=== PATIENT | female | born 1950 | race Caucasian/White ===

== ENCOUNTER 2018-06-20 00:18 | Inpatient (IN) | payer MEDICARE, OTHER, SELFPAY ==
[2018-06-19 23:10] VITALS: BP 163/103; PULSE 107; RESP 16; TEMP 36.5; O2SAT 93
[2018-06-19 23:24] VITALS: PULSE 108
[2018-06-19 23:38] VITALS: BMI 36.8
[2018-06-19 23:42] VITALS: BMI 36.9
--- NOTE | 2018-06-19 23:46 | HP.PCM_ITS ---
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 Patient has dyspnea at rest and increased dyspnea with mild activity like walking around her car. She has had dyspnea since February 2018 but for the last 3-4 days her dyspnea has been unbearable. Patient denies chills, or fever. She has nausea but she states that her nausea is chronic. . She has had an extensive evaluation at outside hospitals. Stress test done with Dr. Castrejon, cardiology was unremarkable. An echocardiogram at outside hospital showed a compression of the free wall of the right atrium. A follow-up CT of chest showed small pleural effusions. On the day of admission CT scan was done at an outside hospital which was unchanged. EKG done at outside hospital showed T-wave inversion in leads V1 to V5 that was no present on EKG done previously. In regard to her ovarian cancer she was diagnosed with stage III ovarian cancer in 2015. At that time because the ovarian cancer has spread to multiple organs she had a hysterectomy; 10% of the colon was taken out; she had an appendectomy ; and many large size 2 tumors were taken from her abdomen. In addition, initially she had 18 sessions of chemotherapy. She reported her ovarian cancer was temporarily in remission for 3 months. Later on CAT scan showed that she had 5 enlarged lymph nodes in her abdomen that was attributed to the ovarian cancer. She had 12 more chemotherapy. Her ast chemotherapy was 3 weeks ago. Repeat CAT scan showed disappearance of 4 of these lymph nodes except an enlarged lymph node that was across her ureter and it was causing hydronephrosis. Because of hydronephrosis stated above, a urostomy tube was placed. The urostomy tube is changed every 8 weeks last time that it was changed was a week before this admission. Patient reports that her dyspnea was attributed to her chemotherapy. However she does not understand why her last chemotherapy was 3 weeks ago but she continues to have dyspnea. She acknowledged that she could have dyspnea attributed to chemotherapy even after chemotherapy has ended; but she thinks that if anything at all her dyspnea should be improving. Past Medical History Past Medical History (Chronic Problems): Chronic Problems Primary cancer of ovary with widespread metastatic disease (Chronic) Home Medications: Ambulatory Orders Medication Instructions Recorded Glipizide [Glucotrol Xl] 10 mg PO BID 06/19/18 Isosorbide Mononitrate [Isosorbide 60 mg PO DAILY 06/19/18 Mononitrate ER] Losartan Potassium 25 mg PO DAILY 06/19/18 Magnesium Oxide [Mag-Ox 400] 400 mg PO BID 06/19/18 Metformin(XR) [Glucophage Xr] 1,000 mg PO BID 06/19/18 Ondansetron [Zofran Odt] 4 mg PO Q8H PRN PRN 06/19/18 Simvastatin 20 mg PO QHS 06/19/18 Surgical History: - - Lipoma removed from her neck. Lives: Spouse/ Significant Other Tobacco Use: Non-smoker Alcohol: None Review of Systems Constitutional: Denies: Chills, Fever, Weight Change HEENT: Denies: Head Aches, Sinus Congestion, Sinus Drainage Cardiovascular: Denies: Chest Pain, Palpitations Respiratory: Reports: Shortness of Breath Gastrointestinal: Reports: Nausea. Denies: Abdominal Pain Genitourinary: Denies: Dysuria Musculoskeletal: Denies: Joint Pain, Joint Tenderness Skin: Denies: Rash, Wounds Neurological: Denies: Numbness, Tingling, Focal weakness Psychiatric: Denies: Anxiety, Depression, Homicidal Ideations, Suicidal Ideations Hematologic/ Lymphatic: Denies: Petechiae, Purpura VTE Information - Inpt Only VTE Present on Admission: No VTE Mechan Device Prophylaxis: None VTE Pharm Prophylaxis ordered?: Yes Patient Problems: Active and Suspected Problems Dyspnea (Acute) - Physical Exam General: Alert, Oriented x3, Cooperative HEENT: Atraumatic, PERRLA, EOMI, Normocephalic Neck: Supple, No JVD, Negative Carotid Bruits Lungs: Clear to auscultation, Diminished Cardiovascular: No murmurs, Tachycardic Abdomen: Bowel Sounds Present, Soft, Non Tender, - - Nephrostomy tube from right side flank.; Dressing dry and intact. 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 Of note patient is not hypoxic. ABG ordered. EKG ordered. Cardiology consulted to determine whether patient will be a candidate of heart cath. High-resolution CT to further investigate the lungs has been ordered. Investigating diffuse parenchymal lung disease. Respiratory pathogen panel to investigate acute dyspnea Duoneb scheduled. Albuterol prn. Consider a trial of steroid taper and pulmonary consult if further heart evaluation is unremarkable. Hypertension Blood pressure not within goal at the time of admission Losartan and Imdur continued Hydralazine as needed. Diabetes mellitus On home metformin and glipizide. Blood glucose within goal at the time of admission. Since it is too early in an admission would hold metformin for now Correction scale insulin ordered. On glipizide held for risk of hypoglycemia in the setting of stating insulin. Metastatic ovarian cancer The patient to follow up outpatient. DVT prophylaxis Subcutaneous Lovenox. Code Visit Inpatient E&M: 92861 Init Hosp L3
[2018-06-20] VITALS (15 sets, daily range): BP systolic 140–167; BP diastolic 85–90; PULSE 89–108; RESP 16–20; TEMP 36.5–36.7; O2SAT 95–98
[2018-06-20 00:30] LABS: Bedside Glucose 135 mg/dL (70-110)
--- NOTE | 2018-06-20 00:38 | EKG12_ITS ---
Test Reason : CP ADMIT Blood Pressure : / mmHG Vent. Rate : 106 BPM Atrial Rate : 106 BPM P-R Int : 162 ms QRS Dur : 096 ms QT Int : 380 ms P-R-T Axes : 037 029 -20 degrees QTc Int : 504 ms Sinus tachycardia Nonspecific ST and T wave abnormality Abnormal ECG No previous ECGs available Confirmed by ALLIE SHAW, ROSLYN ([id number]), photograph editor NESSA MCKEON ([id number]) on 06/24/2018 3:31:45 PM Referred By: DR SAMAYOA Confirmed By:ROSLYN KELLEY MD
--- NOTE | 2018-06-20 00:38 | CT_ITS ---
STUDY: CT CHEST WITHOUT CONTRAST REASON FOR EXAM: Female, 68 years old. Dyspnea RADIATION DOSAGE (If Supplied By Facility): CTDIvol = ( 20.08 ) mGy, DLP = ( 714.87 ) mGycm TECHNIQUE: Transaxial 5 and 1.25 mm imaging was performed without the administration of intravenous contrast material. Multiplanar coronal and sagittal images were reformatted. This examination is limited for the evaluation of gastrointestinal, solid organs and vascular structures due to the lack of intravenous and oral contrast. Submitted adjunct communications faculty member film demonstrated the heart and aorta on patient's right side. There is also a percutaneous pigtail catheter over the upper abdomen which is not included on the axial images.. Individualized dose optimization techniques were used for this CT. COMPARISON: None. FINDINGS: Right anterior chest wall port via subclavian approach with catheter tip in the superior vena cava. Mild elevation of the presumed right hemidiaphragm. The lungs are normal. Minimal left, small right pleural effusion without loculation. Small areas of patchy opacification along the peripheral right middle lobe, lingula, minor atelectatic changes in the left lower lobe and lingula. Mild airspace disease in the right lower lobe. There is cardiac enlargement. Mild pericardial fluid. Valvular calcification of the aorta and possible left coronary artery calcification Multiple small mediastinal lymph nodes, indistinct mediastinal nodes with adjacent mediastinal fat stranding and enlarged right paratracheal and precarinal lymph nodes. Largest lymph node measures 1.1 x 1.8 cm. Normal hilar regions. Normal unenhanced pulmonary arteries. There is atherosclerotic calcification of the aortic arch. There are multi-level degenerative changes of the thoracic spine. There is demineralization of osseous structures. Multiple splenic granulomata. Atherosclerosis of the upper abdominal aorta. Streak artifact in the right upper renal collecting system with possible calculi. Air within the collecting system is difficult to separate. Incompletely imaged liver appears enlarged. CT/Chest without Contrast IMPRESSION: Small right, minimal left pleural effusion without loculation, possible pneumonia in the right base with peripheral interstitial opacities possible small infiltrate in the middle lobe and lingula. There is cardiac enlargement and pericardial fluid.. Borderline to minimally enlarged mediastinal lymph nodes. The adjunct communications faculty member and reconstructed coronal view demonstrate the patient's heart on the right side which is not visualized on the axial views, correlation is recommended. Percutaneous operative abdominal drain noted on the adjunct communications faculty member view not seen on the submitted images, findings in the right kidney could be due to air or renal calculi, correlation advised. Remote granulomatous exposure. Electronically Signed: Tiffani Meza MD at 6:56 EDT , Service support ,
[2018-06-20] MEDS: cloNIDine HCl 0.1 MG Tablet PO (02:47)
[2018-06-20 06:43] LABS: International Normalized Ratio 1.1; Prothrombin Time (Protime)PT. 14.1 SECONDS (11.7-14.9)
[2018-06-20 06:51] LABS: Hematocrit 37.9 % (37-47); Hemoglobin 11.4 g/dl (12.0-15.0); Mean Corp Hgb Conc 30.1 g/gl (32-36); Mean Platelet Vol. 10.7 fl (6.2-12.0); Platelet Count 158 K/mm3 (150-450); RBC Distribution Width CV 18.8 % (11.6-14.6); RBC Distribution Width SD 68.9 fl (35.1-43.9); Red Blood Count 3.68 M/mm3 (4.2-5.4); White Blood Count 8.4 K/mm3 (4.4-11.0)
[2018-06-20 06:52] LABS: Scan Indicated on CBC? Y/N YES- FLAGS NOTED
[2018-06-20 06:55] LABS: Allen Test POS; Base Excess -3 mmol/L (-2 to +2); Bicarbonate 21.1 mmol/L (22-26); Blood Gas Specimen Type ART; O2 Delivery Device Room Air; PO2 73 mmHG (75-100); SITE L Radial; SO2 95 % (95-99); Time Given 640; Total Carbon Dioxide 22 mmol/L; pCO2 32.2 mmHg (35-45); pH 7.42 (7.35-7.45)
[2018-06-20 06:58] LABS: Anion Gap 12 (5-15); BUN 24 mg/dL (7-18); BUN/Creat Ratio 25.3 RATIO (10-20); Calcium,Total 8.6 mg/dL (8.5-10.1); Chloride 105 mmol/L (98-107); Creatinine, Serum 0.95 mg/dL (0.55-1.02); EST Glomerular Filtration Rate 62 mL/min (>60); Est Glom Filt Rate - Afr Amer 75 mL/min (>60); Estimated Creatinine Clearance 42.17 ml/min; Glucose 114 mg/dL (74-106); Potassium 4.3 mmol/L (3.5-5.1); Sodium Level 140 mmol/L (136-145)
[2018-06-20 07:05] LABS: Bedside Glucose 114 mg/dL (70-110)
[2018-06-20] MEDS: Ipratropium/Albuterol Sulfate 3 ML AMPUL.NEB INHALATION ×4 (07:07→18:49)
[2018-06-20 07:17] LABS: Differential Comment SCAN
[2018-06-20] MEDS: Magnesium Oxide 400 MG Tablet PO ×2 (07:46→21:10)
[2018-06-20] MEDS: Losartan Potassium 25 MG Tablet PO (07:47)
[2018-06-20] MEDS: Isosorbide Mononitrate 60 MG Tablet PO (07:47)
--- NOTE | 2018-06-20 08:03 | ECHOCS_ITS ---
Reason For Study: SOB Procedure This was a 2D Doppler, Color Flow transthoracic echocardiogram. Myocardial strain analysis was performed in this exam to aid in the assessment of cardiac function. Exam performed portable in patient room. Left Ventricle Normal LV size. Mild concentric left ventricular hypertrophy. The estimated ejection fraction is 15 %. Stage 2 diastolic dysfunction. The global longitudinal strain is severely abnormal. The 3D full volume ejection fraction is 27 %. The global longitudinal strain = -7% (abnormal). There is severe global hypokinesis of the left ventricle. Right Ventricle Normal RV size. Normal systolic function. Atria The left atrium is mildly enlarged. Normal right atrium. Mitral Valve Normal mitral valve. Mild (1+) eccentric mitral valve insufficiency. Tricuspid Valve Normal tricuspid valve. Mild (1+) tricuspid valve insufficiency. Pulmonary artery systolic pressure is 38 mmHg. Aortic Valve Trisinus/trileaflet aortic valve. Pulmonic Valve Normal pulmonic valve. Mild (1+) pulmonic valve insufficiency. Great Vessels Normal aortic root. Moderate pulmonary artery dilation. The inferior vena cava is dilated. Pericardium/Pleural Trivial pericardial effusion. MMode/2D Measurements & Calculations LVIDd: 5.3 cm IVSd: 1.2 cm Ao root diam: 3.3 cm LVIDs: 4.6 cm LVPWd: 1.2 cm LA dimension: 3.6 cm RVDd: 3.5 cm FS: 14.1 % LAV(MOD-bp): 62.0 ml LA A4 area: 21.3 cm2 RA A4 area: 14.3 cm2 LAV(MOD-bp) Indexed: 33.2 ml/m2 LAV(MOD-sp2): 56.0 ml LAV(MOD-sp4): 59.3 ml Doppler Measurements & Calculations MV E max ad: 94.1 cm/sec Lat Peak E' Ad: 7.0 cm/sec Med Peak E' Ad: 2.9 cm/sec MV A max ad: 94.6 cm/sec E/E' lat: 13.4 E/E' med: 32.4 MV E/A: 1.00 Ao V2 max: 149.3 cm/sec LV V1 max: 88.0 cm/sec PA V2 max: 67.0 cm/sec Ao max P.9 mmHg LV V1 max P.1 mmHg TR max ad: 294.0 cm/sec TR max P.6 mmHg Interpretation Summary Normal LV size. Mild concentric left ventricular hypertrophy. The estimated ejection fraction is 15 %. Stage 2 diastolic dysfunction. There is severe global hypokinesis of the left ventricle. The global longitudinal strain = -7% (abnormal). Mild (1+) tricuspid valve insufficiency. Trivial pericardial effusion. Ordering Physician: David Franco Performed By: Yue Bedolla RDCS
[2018-06-20] MEDS: Enoxaparin 40 MG/0.4 ML Syringe SC (11:10)
[2018-06-20 11:25] LABS: Bedside Glucose 138 mg/dL (70-110)
--- NOTE | 2018-06-20 12:37 | PCM.CONS.C ---
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 Patient has dyspnea at rest and increased dyspnea with mild activity like walking around her car. She has had dyspnea since February 2018 but for the last 3-4 days her dyspnea has been unbearable.Patient denies chills, or fever. She has nausea but she states that her nausea is chronic. . She has had an extensive evaluation at outside hospitals. Stress test done with Dr. Castrejon, cardiology was unremarkable. A previous echocardiogram which was performed in December of this year apparently demonstrated an ejection fraction of 55% with a small pericardial effusion with no evidence of tamponade physiology. In regard to her ovarian cancer she was diagnosed with stage III ovarian cancer in 2015. At that time because the ovarian cancer has spread to multiple organs she had a hysterectomy; 10% of the colon was taken out; she had an appendectomy; and many large size 2 tumors were taken from her abdomen. In addition, initially she had 18 sessions of chemotherapy. She reported her ovarian cancer was temporarily in remission for 3 months. Later on CAT scan showed that she had 5 enlarged lymph nodes in her abdomen that was attributed to the ovarian cancer. She had 12 more chemotherapy. Her last chemotherapy was 3 weeks ago. Repeat CAT scan showed disappearance of 4 of these lymph nodes except an enlarged lymph node that was across her ureter and it was causing hydronephrosis. Because of hydronephrosis stated above, a urostomy tube was placed. The urostomy tube is changed every 8 weeks last time that it was changed was a week before this admission. Patient reports that her dyspnea was attributed to her chemotherapy. However she does not understand why her last chemotherapy was 3 weeks ago but she continues to have dyspnea. She acknowledged that she could have dyspnea attributed to chemotherapy even after chemotherapy has ended; but she thinks that if anything at all her dyspnea should be improving. He denies any chest pain. She presented to the hospital because of her worsening dyspnea. Past Medical History Allergies/Adverse Reactions: Allergies lisinopril Allergy (Verified 06/20/18 00:17) Other Home Medications: Ambulatory Orders Medication Instructions Recorded Glipizide [Glucotrol Xl] 10 mg PO BID 06/19/18 Isosorbide Mononitrate [Isosorbide 60 mg PO DAILY 06/19/18 Mononitrate ER] Losartan Potassium 25 mg PO DAILY 06/19/18 Magnesium Oxide [Mag-Ox 400] 400 mg PO BID 06/19/18 Metformin(XR) [Glucophage Xr] 1,000 mg PO BID 06/19/18 Ondansetron [Zofran Odt] 4 mg PO Q8H PRN PRN 06/19/18 Simvastatin 20 mg PO QHS 06/19/18 Past Medical History (Chronic Problems): Chronic Problems Primary cancer of ovary with widespread metastatic disease (Chronic) Surgical History: - - Lipoma removed from her neck. Lives: Spouse/ Significant Other Smoking Status: Never smoker Tobacco Use: Non-smoker Alcohol: None Drugs: None Review of Systems - Review of Systems General: Denies: Fever, Night Sweats, Fatigue Cardiovascular: Reports: Shortness of Breath, Shortness of Breath at Rest, Shortness of Breath with Exertion. Denies: Chest Discomfort, Orthopnea, PND, Peripheral Edema, Palpitations, Lightheadedness, Dizziness, Near Syncope, Syncope Respiratory: Denies: Cough, Sputum Production, Hemoptysis Gastrointestinal: Denies: Hematemesis, Hematochezia, Melena Genitourinary: Denies: Dysuria, Hematuria Skin: Denies: Rash Subjectve: Pleasant lady in no apparent distress Objective: Vital Signs Temp Pulse Resp BP Pulse Ox 98.1 F 96 20 H 145/88 H 97 06/20/18 07:44 06/20/18 11:30 06/20/18 10:36 06/20/18 07:44 06/20/18 07:44 Oxygen Delivery Method Room Air Weight: 195 lb 1.745 oz Body Mass Index (BMI) 36.8 Intake and Output for Last 24 Hours 06/18/18 06/19/18 06/20/18 23:59 23:59 23:59 Intake Total 360 / 360 Output Total 70 / 70 Balance 290 / 290 General: Awake, Alert, Oriented x 3 HEENT: PERRL, EOMI, Sclera Non Icteric Neck: Supple, Good ROM, No Lymph Node Enlargement Lungs: Clear to auscultation Cardiovascular: Regular Rhythm, Normal S1, Normal S2, No Murmurs, No Rubs, No Gallops, Positive S3 Vascular: No Carotid Bruits, Normal Femoral Pulses, Normal Radial Pulses, Normal Dorsalis Pedal Pulse, Normal Posterior Tibial Pulses Abdomen: Bowel Sounds Present, Soft, Non Tender, No HSM, No Organomegaly Extremities: No Cyanosis, No Clubbing, No edema Neurological: No Focal Motor or Sensory Deficit 06/20/18 05:40: Sodium 140, Potassium 4.3, Chloride 105, Carbon Dioxide 23.0, Anion Gap 12, BUN 24 H, Creatinine 0.95, Est GFR (MDRD) Af Amer 75, Est GFR (MDRD) Non-Af 62, BUN/Creatinine Ratio 25.3 H, Glucose 114 H, Calcium 8.6 06/20/18 05:40: PT 14.1, INR 1.1 06/20/18 05:40: WBC 8.4, RBC 3.68 L, Hgb 11.4 L, Hct 37.9, MCV 103.0 H, MCH 31.0, MCHC 30.1 L, RDW 18.8 H, RDW Differential 68.9 H, Plt Count 158, MPV 10.7 06/20/18 06:52: pH 7.42, Bicarbonate Actual 21.1 L, POC Total CO2 22, Base Excess -3 L, O2 Saturation 95, ABG pCO2 32.2 L, ABG pO2 73 L, Moose Test POS Rhythm: EKG: Sinus tachycardia with a rate of [address]-T wave changes noted ECHO: Stress Test: Cardiac Cath: PCI: CT Surgery: Holter monitor: EPS: PPM: CXR: Chest CT Scan: Assessment/Plan 1. Shortness of breath.-Congestive heart failure acute systolic She appears to have marked shortness of breath which it appears is secondary to acute congestive heart failure. An echocardiogram that was performed this morning demonstrates an ejection fraction of 15-20%. The global longitudinal score is noted to be markedly reduced. The above is likely secondary to the chemotherapeutic regimen that she received. Recommendation at this time will be to continue the losartan Start beta-nestor with Coreg 3.125 mg twice a day Will probably need to exclude coronary artery disease due to her age Will diurese with Lasix due to her elevated natruretic peptide level previously. Depending on the findings further recommendations will then be made. I will talk to her about possibly undergoing a left heart catheterization. 2. Hypertension She does have a history of hypertension and was on losartan. I would recommend continuing the above and titrating the beta-nestor to improve her blood pressure better. It is unlikely that her condition is secondary to hypertensive cardiomyopathy though. Thank you for allowing me to participate in the care of your patient. Please don't hesitate to call if any issues arise
--- NOTE | 2018-06-20 12:41 | CON.PCM_ITS ---
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 Patient has dyspnea at rest and increased dyspnea with mild activity like walking around her car. She has had dyspnea since February 2018 but for the last 3-4 days her dyspnea has been unbearable.Patient denies chills, or fever. She has nausea but she states that her nausea is chronic. . She has had an extensive evaluation at outside hospitals. Stress test done with Dr. Castrejon, cardiology was unremarkable. A previous echocardiogram which was performed in December of this year apparently demonstrated an ejection fraction of 55% with a small pericardial effusion with no evidence of tamponade physiology. In regard to her ovarian cancer she was diagnosed with stage III ovarian cancer in 2015. At that time because the ovarian cancer has spread to multiple organs she had a hysterectomy; 10% of the colon was taken out; she had an appendectomy ; and many large size 2 tumors were taken from her abdomen. In addition, initially she had 18 sessions of chemotherapy. She reported her ovarian cancer was temporarily in remission for 3 months. Later on CAT scan showed that she had 5 enlarged lymph nodes in her abdomen that was attributed to the ovarian cancer. She had 12 more chemotherapy. Her last chemotherapy was 3 weeks ago. Repeat CAT scan showed disappearance of 4 of these lymph nodes except an enlarged lymph node that was across her ureter and it was causing hydronephrosis. Because of hydronephrosis stated above, a urostomy tube was placed. The urostomy tube is changed every 8 weeks last time that it was changed was a week before this admission. Patient reports that her dyspnea was attributed to her chemotherapy. However she does not understand why her last chemotherapy was 3 weeks ago but she continues to have dyspnea. She acknowledged that she could have dyspnea attributed to chemotherapy even after chemotherapy has ended; but she thinks that if anything at all her dyspnea should be improving. He denies any chest pain. She presented to the hospital because of her worsening dyspnea. Past Medical History Allergies/Adverse Reactions: Allergies lisinopril Allergy (Verified 06/20/18 00:17) Other Home Medications: Ambulatory Orders Medication Instructions Recorded Glipizide [Glucotrol Xl] 10 mg PO BID 06/19/18 Isosorbide Mononitrate [Isosorbide 60 mg PO DAILY 06/19/18 Mononitrate ER] Losartan Potassium 25 mg PO DAILY 06/19/18 Magnesium Oxide [Mag-Ox 400] 400 mg PO BID 06/19/18 Metformin(XR) [Glucophage Xr] 1,000 mg PO BID 06/19/18 Ondansetron [Zofran Odt] 4 mg PO Q8H PRN PRN 06/19/18 Simvastatin 20 mg PO QHS 06/19/18 Past Medical History (Chronic Problems): Chronic Problems Primary cancer of ovary with widespread metastatic disease (Chronic) Surgical History: - - Lipoma removed from her neck. Lives: Spouse/ Significant Other Smoking Status: Never smoker Tobacco Use: Non-smoker Alcohol: None Drugs: None Review of Systems - Review of Systems General: Denies: Fever, Night Sweats, Fatigue Cardiovascular: Reports: Shortness of Breath, Shortness of Breath at Rest, Shortness of Breath with Exertion. Denies: Chest Discomfort, Orthopnea, PND, Peripheral Edema, Palpitations, Lightheadedness, Dizziness, Near Syncope, Syncope Respiratory: Denies: Cough, Sputum Production, Hemoptysis Gastrointestinal: Denies: Hematemesis, Hematochezia, Melena Genitourinary: Denies: Dysuria, Hematuria Skin: Denies: Rash Subjectve: Pleasant lady in no apparent distress Objective: Vital Signs Temp Pulse Resp BP Pulse Ox 98.1 F 96 20 H 145/88 H 97 06/20/18 07:44 06/20/18 11:30 06/20/18 10:36 06/20/18 07:44 06/20/18 07:44 Oxygen Delivery Method Room Air Weight: 195 lb 1.745 oz Body Mass Index (BMI) 36.8 Intake and Output for Last 24 Hours 06/18/18 06/19/18 06/20/18 23:59 23:59 23:59 Intake Total 360 / 360 Output Total 70 / 70 Balance 290 / 290 General: Awake, Alert, Oriented x 3 HEENT: PERRL, EOMI, Sclera Non Icteric Neck: Supple, Good ROM, No Lymph Node Enlargement Lungs: Clear to auscultation Cardiovascular: Regular Rhythm, Normal S1, Normal S2, No Murmurs, No Rubs, No Gallops, Positive S3 Vascular: No Carotid Bruits, Normal Femoral Pulses, Normal Radial Pulses, Normal Dorsalis Pedal Pulse, Normal Posterior Tibial Pulses Abdomen: Bowel Sounds Present, Soft, Non Tender, No HSM, No Organomegaly Extremities: No Cyanosis, No Clubbing, No edema Neurological: No Focal Motor or Sensory Deficit 06/20/18 05:40: Sodium 140, Potassium 4.3, Chloride 105, Carbon Dioxide 23.0, Anion Gap 12, BUN 24 H, Creatinine 0.95, Est GFR (MDRD) Af Amer 75, Est GFR ( MDRD) Non-Af 62, BUN/Creatinine Ratio 25.3 H, Glucose 114 H, Calcium 8.6 06/20/18 05:40: PT 14.1, INR 1.1 06/20/18 05:40: WBC 8.4, RBC 3.68 L, Hgb 11.4 L, Hct 37.9, MCV 103.0 H, MCH 31.0 , MCHC 30.1 L, RDW 18.8 H, RDW Differential 68.9 H, Plt Count 158, MPV 10.7 06/20/18 06:52: pH 7.42, Bicarbonate Actual 21.1 L, POC Total CO2 22, Base Excess -3 L, O2 Saturation 95, ABG pCO2 32.2 L, ABG pO2 73 L, Moose Test POS Rhythm: EKG: Sinus tachycardia with a rate of [address]-T wave changes noted ECHO: Stress Test: Cardiac Cath: PCI: CT Surgery: Holter monitor: EPS: PPM: CXR: Chest CT Scan: Assessment/Plan 1. Shortness of breath.-Congestive heart failure acute systolic * She appears to have marked shortness of breath which it appears is secondary to acute congestive heart failure. An echocardiogram that was performed this morning demonstrates an ejection fraction of 15-20%. The global longitudinal score is noted to be markedly reduced. The above is likely secondary to the chemotherapeutic regimen that she received. * Recommendation at this time will be to continue the losartan * Start beta-nestor with Coreg 3.125 mg twice a day * Will probably need to exclude coronary artery disease due to her age * Will diurese with Lasix due to her elevated natruretic peptide level previously. * Depending on the findings further recommendations will then be made. I will talk to her about possibly undergoing a left heart catheterization. 2. Hypertension * She does have a history of hypertension and was on losartan. I would recommend continuing the above and titrating the beta-nestor to improve her blood pressure better. It is unlikely that her condition is secondary to hypertensive cardiomyopathy though. * * Thank you for allowing me to participate in the care of your patient. Please don't hesitate to call if any issues arise
--- NOTE | 2018-06-20 12:55 | PN_ITS ---
<Aparna Go - Last Filed: 06/20/18 12:56> Patient Problems: Active and Suspected Problems Dyspnea (Acute) Subjective: Patient seen and examined. Complains of ongoing dyspnea. States she is unable to walk greater than 10 feet without significant dyspnea and having to rest. Denies chest pain. Denies palpitations, dizziness. Denies lower extremity edema. - Physical Exam General: Alert, Oriented x3, Cooperative, No apparent distress HEENT: Atraumatic, PERRLA, EOMI, Normocephalic Neck: Supple, No JVD, Negative Carotid Bruits Lungs: Clear to auscultation, Diminished Cardiovascular: Regular rate, Regular Rhythm, Normal S1, Normal S2, No murmurs Abdomen: Bowel Sounds Present, Soft, Non Tender, Non-Distended, Obese, - - Nephrostomy tube intact. Extremities: No clubbing, No cyanosis, No edema, Capillary Refill Less than 3 Seconds Skin: No rashes, No breakdown Musculoskeletal: No Tenderness to Palpation of Joints or Extremities Neurological: Cranial nerves II-XII grossly intact, Neuro grossly intact Psych/Mental Status: Normal Affect, Appropriate Vital Signs Temp Pulse Resp BP Pulse Ox 98.1 F 96 20 H 145/88 H 97 06/20/18 07:44 06/20/18 11:30 06/20/18 10:36 06/20/18 07:44 06/20/18 07:44 Oxygen Delivery Method Room Air Weight: 195 lb 1.745 oz Body Mass Index (BMI) 36.8 Intake and Output for Last 24 Hours 06/18/18 06/19/18 06/20/18 23:59 23:59 23:59 Intake Total 360 / 360 Output Total 70 / 70 Balance 290 / 290 Microbiology Past 72 Hours 06/20/18 06:35 Respiratory Panel (PCR) - Final Mucosa - Nasopharyngeal Laboratory Tests Past 24 Hrs 06/20/18 06/20/18 06/20/18 05:40 05:40 05:40 WBC 8.4 RBC 3.68 L Hgb 11.4 L Hct 37.9 MCV 103.0 H MCH 31.0 MCHC 30.1 L RDW 18.8 H RDW Differential 68.9 H Plt Count 158 MPV 10.7 Differential Comment SCAN PT 14.1 INR 1.1 Specimen Type Sample Site pH Bicarbonate Actual POC Total CO2 Base Excess O2 Saturation ABG pCO2 ABG pO2 Moose Test O2 Delivery Device Blood Gas Notified Whom Blood Gas Notified Time Sodium 140 Potassium 4.3 Chloride 105 Carbon Dioxide 23.0 Anion Gap 12 BUN 24 H Creatinine 0.95 Estim Creat Clear Calc 42.17 Est GFR (MDRD) Af Amer 75 Est GFR (MDRD) Non-Af 62 BUN/Creatinine Ratio 25.3 H Glucose 114 H Calcium 8.6 06/20/18 06:52 WBC RBC Hgb Hct MCV MCH MCHC RDW RDW Differential Plt Count MPV Differential Comment PT INR Specimen Type ART Sample Site L Radial pH 7.42 Bicarbonate Actual 21.1 L POC Total CO2 22 Base Excess -3 L O2 Saturation 95 ABG pCO2 32.2 L ABG pO2 73 L Moose Test POS O2 Delivery Device Room Air Blood Gas Notified Whom [facility] Blood Gas Notified Time 640 Sodium Potassium Chloride Carbon Dioxide Anion Gap BUN Creatinine Estim Creat Clear Calc Est GFR (MDRD) Af Amer Est GFR (MDRD) Non-Af BUN/Creatinine Ratio Glucose Calcium POC Glucose 06/20/18 06/20/18 06/20/18 11:08 06:51 00:23 POC Glucose 138 H 114 H 135 H Medical Necessity - Tobacco Use Smoking Status: Never smoker Tobacco Use: Non-smoker Assessment/Plan All Active Problems Dyspnea (Acute) 1. Acute respiratory insufficiency secondary to acute systolic CHF-patient notes history of dyspnea following prior chemotherapy treatments. She states in the past, this is improved over time. However her most recent chemotherapy treatment was 3 weeks ago and she has had worsening dyspnea since that time. Chest CT showed small right pleural effusion, possible pneumonia in the right base. Small infiltrate in the middle lobe and lingula. Cardiac enlargement and pericardial fluid. Echocardiogram showed an EF of 15%, stage II diastolic dysfunction, severe global hypokinesis of the left ventricle, mild tricuspid valve insufficiency, trivial pericardial effusion. BNP elevated at outside facility. Cardiology following. Patient started on Lasix 40 mg twice daily. Started on carvedilol 3.125 mg twice daily. Continue losartan. Possible heart catheterization per cardiology. Patient has not been noted to be hypoxic. Will need to complete walking pulse ox prior to discharge. 2. Type 2 diabetes mellitus-hold home oral regimen. Accu-Cheks before meals at bedtime with sliding scale insulin. 3. Hypertension-stable, continue home losartan regimen. Started on carvedilol 3.125 mg twice daily. Home isosorbide regimen discontinued. Started on Lasix 40 mg twice daily. 4. Hyperlipidemia-continue statin. 5. Metastatic ovarian cancer-original diagnosis with stage III ovarian cancer in 2016. Status post hysterectomy. Recurrence to lymph nodes most recently. Recently completed final chemotherapy treatment 3 weeks ago. Patient with right nephrostomy tube secondary to enlarged lymph node across ureter, causing hydronephrosis. Follows with [facility] in [place]. DVT prophylaxis-Lovenox subcu. This patient was seen by RAMANDEEP Montes De Oca under the supervision of Dr. Franco. <David Franco - Last Filed: 06/20/18 16:11> Subjective: Patient has slowly progressive decline in exercise capacity, exertional dyspnea since December 2017. She had second chemo started in October 2017 after noticed recurrence of ovarian cancer. She denies chest pain, palpitation, fever or chills, tachypnea at rest. She has chronic on and off occasional cough. Bilateral lower extremity edema. - Physical Exam General: Alert, Oriented x3, Cooperative HEENT: Atraumatic, PERRLA, EOMI, Normocephalic Neck: Supple, No JVD, Negative Carotid Bruits Lungs: Clear to auscultation, Diminished Cardiovascular: Regular rate, No murmurs Abdomen: Bowel Sounds Present, Soft, Non Tender, Obese, - - Right Nephrostomy tube intact. Extremities: Capillary Refill Less than 3 Seconds, Edema Skin: No rashes, No breakdown Musculoskeletal: No Tenderness to Palpation of Joints or Extremities Neurological: Cranial nerves II-XII grossly intact Psych/Mental Status: Normal Affect, Appropriate Vital Signs Temp Pulse Resp BP Pulse Ox 97.7 F L 89 20 H 140/90 H 98 06/20/18 13:45 06/20/18 15:05 06/20/18 15:05 06/20/18 13:45 06/20/18 13:45 Oxygen Delivery Method Room Air Weight: 197 lb 12.8 oz Body Mass Index (BMI) 36.8 Intake and Output for Last 24 Hours 06/18/18 06/19/18 06/20/18 23:59 23:59 23:59 Intake Total 360 / 360 Output Total 70 / 70 Balance 290 / 290 Microbiology Past 72 Hours 06/20/18 06:35 Respiratory Panel (PCR) - Final Mucosa - Nasopharyngeal Laboratory Tests Past 24 Hrs 06/20/18 06/20/18 06/20/18 05:40 05:40 05:40 WBC 8.4 RBC 3.68 L Hgb 11.4 L Hct 37.9 MCV 103.0 H MCH 31.0 MCHC 30.1 L RDW 18.8 H RDW Differential 68.9 H Plt Count 158 MPV 10.7 Differential Comment SCAN PT 14.1 INR 1.1 Specimen Type Sample Site pH Bicarbonate Actual POC Total CO2 Base Excess O2 Saturation ABG pCO2 ABG pO2 Moose Test O2 Delivery Device Blood Gas Notified Whom Blood Gas Notified Time Sodium 140 Potassium 4.3 Chloride 105 Carbon Dioxide 23.0 Anion Gap 12 BUN 24 H Creatinine 0.95 Estim Creat Clear Calc 42.17 Est GFR (MDRD) Af Amer 75 Est GFR (MDRD) Non-Af 62 BUN/Creatinine Ratio 25.3 H Glucose 114 H Calcium 8.6 06/20/18 06:52 WBC RBC Hgb Hct MCV MCH MCHC RDW RDW Differential Plt Count MPV Differential Comment PT INR Specimen Type ART Sample Site L Radial pH 7.42 Bicarbonate Actual 21.1 L POC Total CO2 22 Base Excess -3 L O2 Saturation 95 ABG pCO2 32.2 L ABG pO2 73 L Moose Test POS O2 Delivery Device Room Air Blood Gas Notified Whom [facility] Blood Gas Notified Time 640 Sodium Potassium Chloride Carbon Dioxide Anion Gap BUN Creatinine Estim Creat Clear Calc Est GFR (MDRD) Af Amer Est GFR (MDRD) Non-Af BUN/Creatinine Ratio Glucose Calcium POC Glucose 06/20/18 06/20/18 06/20/18 11:08 06:51 00:23 POC Glucose 138 H 114 H 135 H Assessment/Plan This patient was seen in conjunction with LEARNING ANALYST, Aparna. I have independently interviewed and examined the patient and reviewed pertinent history, examination findings, laboratory and plan of management. I have reviewed the note and agree with the documented findings with the few additional points. In brief, patient is admitted for gradual progressive exertional dyspnea, decreased functional capacity leg edema consistent with heart failure. EKG shows sinus tachycardia at 106 bpm. 2D echo in December 2017 reviewed and reported EF 55% with no significant valvular pathology mild concentric LVH. It is mentioned about compression of free wall of right atrium with atrial septal aneurysm present. [id number] interatrial shunt by agitated saline injection. Minimal posterior mitral annular calcification. Trace circumferential pericardial effusion. She had ECG stress test which was negative exercise EKG is for ischemia with poor functional capacity. Normal blood pressure and heart rate response to exercise. No exercise-induced chest pain. she had symptoms of shortness of breath suggestive of CHF during her first chemo in October 2016 after that her symptoms of shortness of breath improved after chemo was completed. Symptoms started again after she had recurrence of ovarian cancer was started on chemo in October 2017. 2D echo showed done on 06/20/2018 showed EF 15% with stage II diastolic dysfunction with normal LV size. Severe global hypokinesis. Normal RV size systolic function LA mildly enlarged. Normal right atrium. Mild eccentric MR. Mild TR, RVSP 38 mmHg. Mild DE. Moderate pulmonary artery dilatation. IVC dilated. CT scan reviewed. Shows mild pericardial effusion. Small right pleural effusion and minimal left pleural effusion. There is infiltrate or opacity in right base and right middle lobe with no air bronchograms, suggestive of more atelectasis than underlying effusion. Clinically she does not have symptoms of bronchitis or pneumonia including tachypnea, fever, chills or hypoxia. I have discussed my assessment with Aparna HUBER and orders have been reviewed. Code Visit Inpatient E&M: 55710 Subs Hosp L3
[2018-06-20] MEDS: Furosemide 40 MG/4 ML Vial IV (13:37)
[2018-06-20] MEDS: 0.9% NaCl Peripheral Flush Adult/Peds IV (13:37)
--- NOTE | 2018-06-20 14:00 | CASEMGMT ---
SEE RN NIGHAT ASSESS LINK: D/C PLAN: HOME Intro role to RN NIGHAT. Pt resting in bed, awake/alert, willing to participate in assessment and all questions answered appropriately. Pt states lives w/her , is independent at home, wishes to return home and denies needs for DME or HHC. Pt states if would need O2 on discharge that she would prefer to get O2 from [facility] in [place]. Pt will need Home O2 testing done prior to discharge. Pt denies having any questions or needs. CM to follow for any discharge planning needs that may arise. Edmond BSN RN CM
[2018-06-20] MEDS: Furosemide 40 MG Tablet PO (16:07)
[2018-06-20 16:26] LABS: Bedside Glucose 135 mg/dL (70-110)
[2018-06-20] MEDS: Atorvastatin Calcium 10 MG Tablet PO (21:10)
[2018-06-20] MEDS: Carvedilol 3.125 MG TABLET PO (21:10)
[2018-06-20] MEDS: Insulin Lispro 100 UNIT/ML INSULN.PEN SQ (21:13)
[2018-06-20 22:01] LABS: Bedside Glucose 181 mg/dL (70-110)
[2018-06-21] VITALS (25 sets, daily range): BP systolic 117–139; BP diastolic 64–95; PULSE 64–101; RESP 16–21; TEMP 36.3–37.2; O2SAT 94–99
[2018-06-21 06:27] LABS: Anion Gap 12 (5-15); BUN 31 mg/dL (7-18); Calcium,Total 8.5 mg/dL (8.5-10.1); Chloride 103 mmol/L (98-107); Creatinine, Serum 1.29 mg/dL (0.55-1.02); EST Glomerular Filtration Rate 44 mL/min (>60); Est Glom Filt Rate - Afr Amer 53 mL/min (>60); Estimated Creatinine Clearance 31.06 ml/min; Glucose 140 mg/dL (74-106); Potassium 3.9 mmol/L (3.5-5.1); Sodium Level 141 mmol/L (136-145)
[2018-06-21] MEDS: Ipratropium/Albuterol Sulfate 3 ML AMPUL.NEB INHALATION ×4 (06:58→19:52)
[2018-06-21 07:16] LABS: Bedside Glucose 173 mg/dL (70-110)
[2018-06-21] MEDS: Carvedilol 3.125 MG TABLET PO (07:37)
[2018-06-21] MEDS: Insulin Lispro 100 UNIT/ML INSULN.PEN SQ ×2 (07:38→22:10)
[2018-06-21] MEDS: Furosemide 40 MG Tablet PO (07:39)
[2018-06-21] MEDS: Losartan Potassium 25 MG Tablet PO (07:39)
[2018-06-21] MEDS: Enoxaparin 40 MG/0.4 ML Syringe SC (07:39)
[2018-06-21] MEDS: Magnesium Oxide 400 MG Tablet PO ×2 (07:40→22:10)
--- NOTE | 2018-06-21 08:24 | PN.CARD_ITS ---
Subjectve: Patient seen and evaluated. She appears to be feeling much better this morning. Adequate urine output noted Objective: Vital Signs Temp Pulse Resp BP Pulse Ox 98.4 F 89 18 130/80 H 95 06/21/18 07:46 06/21/18 07:46 06/21/18 07:46 06/21/18 07:46 06/21/18 07:46 Oxygen Delivery Method Room Air Weight: 194 lb 14.218 oz Body Mass Index (BMI) 36.8 Intake and Output for Last 24 Hours 06/19/18 06/20/18 06/21/18 23:59 23:59 23:59 Intake Total 360 / 360 Output Total 1670 / 1670 1500 / 1500 Balance -1310 / -1310 -1500 / -1500 General: Awake, Alert, Oriented x 3 HEENT: PERRL, EOMI, Sclera Non Icteric Neck: Supple, Good ROM, No Lymph Node Enlargement Lungs: Clear to auscultation Cardiovascular: Regular Rhythm, Normal S1, Normal S2, No Murmurs, No Rubs, No Gallops Vascular: No Carotid Bruits, Normal Femoral Pulses, Normal Radial Pulses, Normal Dorsalis Pedal Pulse, Normal Posterior Tibial Pulses Abdomen: Bowel Sounds Present, Soft, Non Tender, No HSM, No Organomegaly Extremities: No Cyanosis, No Clubbing, No edema Neurological: No Focal Motor or Sensory Deficit 06/21/18 05:10: Sodium 141, Potassium 3.9, Chloride 103, Carbon Dioxide 26.0, Anion Gap 12, BUN 31 H, Creatinine 1.29 H, Est GFR (MDRD) Af Amer 53 L, Est GFR (MDRD) Non-Af 44 L, BUN/Creatinine Ratio 24.0 H, Glucose 140 H, Calcium 8.5 Rhythm: EKG: ECHO: Stress Test: Cardiac Cath: PCI: CT Surgery: Holter monitor: EPS: PPM: CXR: Chest CT Scan: Medical Necessity - Tobacco Use Smoking Status: Never smoker Tobacco Use: Non-smoker Assessment/Plan 1. Shortness of breath.-Congestive heart failure acute systolic * She appears to have marked shortness of breath which it appears is secondary to acute congestive heart failure. An echocardiogram that was performed this morning demonstrates an ejection fraction of 15-20%. The global longitudinal score is noted to be markedly reduced. The above is likely secondary to the chemotherapeutic regimen that she received. * Recommendation at this time will be to continue the losartan * Continue beta-nestor with Coreg at 6.25 mg twice a day * Will probably need to exclude coronary artery disease due to her age * Will diurese with Lasix due to her elevated natruretic peptide level previously. * Depending on the findings further recommendations will then be made. * Will recommend a left heart catheterization in a.m. to exclude obstructive coronary disease. The risk benefits and alternatives have been explained to her she understands and agrees to proceed.. 2. Hypertension * She does have a history of hypertension and was on losartan. I would recommend continuing the above and titrating the beta-nestor to improve her blood pressure better. It is unlikely that her condition is secondary to hypertensive cardiomyopathy though. * * Thank you for allowing me to participate in the care of your patient. Please don't hesitate to call if any issues arise
[2018-06-21] MEDS: Clopidogrel Bisulfate 300 MG Tablet PO (09:45)
[2018-06-21] MEDS: Carvedilol 6.25 MG Tablet PO ×2 (09:45→22:10)
--- NOTE | 2018-06-21 10:28 | PCM.PROGNOTE ---
<Aparna Go - Last Filed: 06/21/18 10:51> Patient Problems: Active and Suspected Problems Dyspnea (Acute) Subjective: Patient seen and examined. Patient reports significant improvement in shortness of breath. She also notes decreased generalized swelling. States she was able to lie on her side and back last night without breathing difficulty which she reports she has not been able to do a long time. - Physical Exam General: Alert, Oriented x3, Cooperative, No apparent distress HEENT: Atraumatic, PERRLA, EOMI, Normocephalic Neck: Supple, No JVD, Negative Carotid Bruits Lungs: Clear to auscultation, Diminished Cardiovascular: Regular rate, Regular Rhythm, Normal S1, Normal S2, No murmurs Abdomen: Bowel Sounds Present, Soft, Non Tender, Non-Distended, Obese, - - Nephrostomy tube intact. Extremities: No clubbing, No cyanosis, No edema, Capillary Refill Less than 3 Seconds Skin: No rashes, No breakdown Musculoskeletal: No Tenderness to Palpation of Joints or Extremities Neurological: Cranial nerves II-XII grossly intact, Neuro grossly intact Psych/Mental Status: Normal Affect, Appropriate Vital Signs Temp Pulse Resp BP Pulse Ox 98.4 F 89 18 130/80 H 95 06/21/18 07:46 06/21/18 07:46 06/21/18 07:46 06/21/18 07:46 06/21/18 09:01 Oxygen Delivery Method Room Air Weight: 194 lb 14.218 oz Body Mass Index (BMI) 36.8 Intake and Output for Last 24 Hours 06/19/18 06/20/18 06/21/18 23:59 23:59 23:59 Intake Total 360 / 360 Output Total 1670 / 1670 1500 / 1500 Balance -1310 / -1310 -1500 / -1500 Microbiology Past 72 Hours 06/20/18 16:40 Streptococcus pneumoniae Antigen (M - Final Urine, Clean Catch 06/20/18 16:40 Legionella Antigen - Final Urine, Clean Catch 06/20/18 06:35 Respiratory Panel (PCR) - Final Mucosa - Nasopharyngeal Laboratory Tests Past 24 Hrs 06/21/18 05:10 Sodium 141 Potassium 3.9 Chloride 103 Carbon Dioxide 26.0 Anion Gap 12 BUN 31 H Creatinine 1.29 H Estim Creat Clear Calc 31.06 Est GFR (MDRD) Af Amer 53 L Est GFR (MDRD) Non-Af 44 L BUN/Creatinine Ratio 24.0 H Glucose 140 H Calcium 8.5 POC Glucose 06/21/18 06/20/18 06/20/18 06:50 21:09 16:05 POC Glucose 173 H 181 H 135 H 06/20/18 11:08 POC Glucose 138 H Medical Necessity - Tobacco Use Smoking Status: Never smoker Tobacco Use: Non-smoker Assessment/Plan All Active Problems Dyspnea (Acute) 1. Acute respiratory insufficiency without hypoxia secondary to acute systolic CHF-patient notes history of dyspnea following prior chemotherapy treatments. She states in the past, this is improved over time. However her most recent chemotherapy treatment was 3 weeks ago and she has had worsening dyspnea since that time. Chest CT showed small right pleural effusion, possible pneumonia in the right base. Small infiltrate in the middle lobe and lingula. Cardiac enlargement and pericardial fluid. Echocardiogram showed an EF of 15%, stage II diastolic dysfunction, severe global hypokinesis of the left ventricle, mild tricuspid valve insufficiency, trivial pericardial effusion. BNP elevated at outside facility. Cardiology following. Patient started on Lasix 40 mg twice daily. Started on carvedilol 3.125 mg twice daily. Continue losartan. Plan is for heart cath tomorrow morning. Will need to complete walking pulse ox prior to discharge. -3.1 L fluid balance over past 24 hours. Patient has had significant improvement with shortness of breath since initiation of Lasix. States she is able to lie flat without difficulty. 2. Type 2 diabetes mellitus-hold home oral regimen. Accu-Cheks before meals at bedtime with sliding scale insulin. 3. Hypertension-stable, continue home losartan regimen. Started on carvedilol 3.125 mg twice daily. Home isosorbide regimen discontinued. Started on Lasix 40 mg twice daily. 4. Hyperlipidemia-continue statin. 5. Metastatic ovarian cancer-original diagnosis with stage III ovarian cancer in 2016. Status post hysterectomy. Recurrence to lymph nodes most recently. Recently completed final chemotherapy treatment 3 weeks ago. Patient with right nephrostomy tube secondary to enlarged lymph node across ureter, causing hydronephrosis. Follows with [facility] in [place]. DVT prophylaxis-Lovenox subcu. This patient was seen by RAMANDEEP Montes De Oca under the supervision of Dr. Franco. <David Franco - Last Filed: 06/21/18 16:20> Subjective: Patient had cardiac cath today. As mentioned yesterday, EF was found 15-20% with hypokinetic left ventricle. There was some regional wall motion abnormality. Her leg swelling has much improved. Shortness of breath has improved. - Physical Exam General: Alert, Oriented x3, Cooperative HEENT: Atraumatic, PERRLA, EOMI, Normocephalic Neck: Supple, No JVD, Negative Carotid Bruits Lungs: Clear to auscultation, Diminished, - - Bilateral pleural effusion Cardiovascular: Regular rate, No murmurs Abdomen: Bowel Sounds Present, Soft, Non Tender Extremities: No edema, Capillary Refill Less than 3 Seconds Skin: No rashes, No breakdown Musculoskeletal: No Tenderness to Palpation of Joints or Extremities Neurological: Cranial nerves II-XII grossly intact Psych/Mental Status: Normal Affect, Appropriate Vital Signs Temp Pulse Resp BP Pulse Ox 98.9 F 86 16 133/69 H 96 06/21/18 16:00 06/21/18 16:00 06/21/18 16:00 06/21/18 16:00 06/21/18 16:00 Oxygen Delivery Method Room Air Weight: 194 lb 14.218 oz Body Mass Index (BMI) 36.8 Intake and Output for Last 24 Hours 06/19/18 06/20/18 06/21/18 23:59 23:59 23:59 Intake Total 360 / 360 Output Total 1670 / 1670 1999 Balance -1310 / -1310 -1999 Microbiology Past 72 Hours 06/20/18 16:40 Streptococcus pneumoniae Antigen (M - Final Urine, Clean Catch 06/20/18 16:40 Legionella Antigen - Final Urine, Clean Catch 06/20/18 06:35 Respiratory Panel (PCR) - Final Mucosa - Nasopharyngeal Laboratory Tests Past 24 Hrs 06/21/18 05:10 Sodium 141 Potassium 3.9 Chloride 103 Carbon Dioxide 26.0 Anion Gap 12 BUN 31 H Creatinine 1.29 H Estim Creat Clear Calc 31.06 Est GFR (MDRD) Af Amer 53 L Est GFR (MDRD) Non-Af 44 L BUN/Creatinine Ratio 24.0 H Glucose 140 H Calcium 8.5 POC Glucose 06/21/18 06/21/18 06/20/18 12:41 06:50 21:09 POC Glucose 83 173 H 181 H 06/20/18 16:05 POC Glucose 135 H Assessment/Plan This patient was seen in conjunction with Aparna HUBER. I have independently interviewed and examined the patient and reviewed pertinent history, examination findings, laboratory and plan of management. I have reviewed the note and agree with the documented findings with the few additional points. In brief, patient is admitted for gradual progressive exertional dyspnea, decreased functional capacity leg edema consistent with heart failure. EKG shows sinus tachycardia at 106 bpm. 2D echo in December 2017 reviewed and reported EF 55% with no significant valvular pathology mild concentric LVH. It is mentioned about compression of free wall of right atrium with atrial septal aneurysm present. [id number] interatrial shunt by agitated saline injection. Minimal posterior mitral annular calcification. Trace circumferential pericardial effusion. She had ECG stress test which was negative exercise EKG is for ischemia with poor functional capacity. Normal blood pressure and heart rate response to exercise. No exercise-induced chest pain. she had symptoms of shortness of breath suggestive of CHF during her first chemo in October 2016 after that her symptoms of shortness of breath improved after chemo was completed. Symptoms started again after she had recurrence of ovarian cancer was started on chemo in October 2017. 2D echo showed done on 06/20/2018 showed EF 15% with stage II diastolic dysfunction with normal LV size. Severe global hypokinesis. Normal RV size systolic function LA mildly enlarged. Normal right atrium. Mild eccentric MR. Mild TR, RVSP 38 mmHg. Mild TN. Moderate pulmonary artery dilatation. IVC dilated. CT scan reviewed. Shows mild pericardial effusion. Small right pleural effusion and minimal left pleural effusion. There is infiltrate or opacity in right base and right middle lobe with no air bronchograms, suggestive of more atelectasis than underlying effusion. Clinically she does not have symptoms of bronchitis or pneumonia including tachypnea, fever, chills or hypoxia. Cardiac cath was done today and shows normal epicardial coronary arteries with tiny and diffusely diseased branch vessels with severely reduced left ventricular EF estimated 20%. Medical management recommended. I have discussed my assessment with Aparna HUBER and orders have been reviewed. Code Visit Inpatient E&M: 02596 Subs Hosp L3
[2018-06-21] MEDS: 0.9% Normal Saline 1,000 ML 15 ML IV (12:00)
--- NOTE | 2018-06-21 12:04 | PCM.PN.BLA ---
Progress Note Cardiac catheterization done today demonstrated normal epicardial coronary cardiac arteries with tiny and diffusely diseased sub-branch vessels and severely reduced left ventricular ejection fraction estimated at 20%. We will continue aggressive medical therapy.
--- NOTE | 2018-06-21 12:09 | CL.D_ITS ---
Patient Name: JEANNINE DOW Study Date: 06/21/2018 Performing: Marc Ayoub MD Ht: 61.02 inches 155 cm : 1950 Wt: 198.42 lbs 90 kg Age: 68 Gender: female BSA: 1.88 PROCEDURE(S) PERFORMED [id number] CLINICAL PROFILE AND INDICATIONS Indications: Cardiomyopathy, Cardiomyopathy Heart Failure: NYHA Class: 3, Newly Diagnosed: Yes, Heart Failure Type: Systolic Stress/Imaging Stress/Image Study Performed: No CAD Presentations: No Sxs, no angina. CONCLUSIONS Non obstructive coronary arteries Cardiomyopathy: Congestive RECOMMENDATIONS Medical therapy DESCRIPTION OF PROCEDURE The patient arrived to the procedure lab. The risks and benefits of the procedure as well as a full d escription of our services here and current unavailability of surgical backup were fully explained to the patient and/or their significant other prior to the catheterization. The Timeout was completed, verifying the correct patient and procedure. The patient's procedural site was prepped and draped in the usual fashion. Local anesthetic was given subcutaneously to right groin region with Lidocaine 2%. Using a modified Seldinger technique, arterial access was obtained via the right femoral artery, a 5 Fr sheath was inserted. Left Coronary Artery selective angiography was performed in multiple views u sing a 5 Fr. JL4 catheter. Right Coronary Artery selective angiography was then performed in multiple views using a 5 Fr. 3DRC (Jag) catheter. Left Ventriculography was performed in KHAN projection using a 5 Fr. Pigtail catheter. LV to AO pullback pressures were then recorded.The arterial sheath wa s pulled and manual compression applied until hemostasis is achieved. CORONARY ANGIOGRAPHY DOMINANCE: Right Dominant LEFT HEART ASSESSMENT Left Ventricular Ejection Fraction: by LV Gram 20 % Depressed Left Ventricular systolic function Elevated Left Ventricular End Diastolic Pressure LEFT MAIN: Angiographically normal LEFT ANTERIOR DECENDING ARTERY: Mild luminal irregularities CIRCUMFLEX ARTERY: Mild luminal irregularities RIGHT CORONARY ARTERY: Angiographically normal COMPLICATIONS No Complications PROCEDURE MEDICATIONS Versed 1 mg IV Oxygen: 2 L/min via nasal cannula SUMMARY OF HEMODYNAMIC DATA Time AIR REST ECG 11:38:27 AO 117/67 (88) SA 11:49:22 LV 124/7, 26 11:56:17 LV 122/10, 27 11:56:24 LV 111/9, 21 11:57:46 LVp 114/6, 19 11:57:51 AO 121/62 (85) 11:57:56 Signed By Marc Ayoub MD On 06/21/2018 12:08:20 PM Marc Ayoub MD
[2018-06-21 13:21] LABS: Bedside Glucose 83 mg/dL (70-110)
[2018-06-21 16:45] LABS: Bedside Glucose 136 mg/dL (70-110)
[2018-06-21] MEDS: Atorvastatin Calcium 10 MG Tablet PO (22:10)
[2018-06-22] VITALS (10 sets, daily range): BP systolic 120–127; BP diastolic 62–77; PULSE 78–86; RESP 16–18; TEMP 36.3–36.8; O2SAT 91–99
[2018-06-22 00:06] LABS: Bedside Glucose 150 mg/dL (70-110)
[2018-06-22] MEDS: Ipratropium/Albuterol Sulfate 3 ML AMPUL.NEB INHALATION ×3 (03:33→10:50)
[2018-06-22 06:15] LABS: International Normalized Ratio 1.1; Prothrombin Time (Protime)PT. 14.5 SECONDS (11.7-14.9)
[2018-06-22 06:23] LABS: Anion Gap 12 (5-15); BUN 33 mg/dL (7-18); BUN/Creat Ratio 26.6 RATIO (10-20); Calcium,Total 8.3 mg/dL (8.5-10.1); Chloride 102 mmol/L (98-107); Creatinine, Serum 1.24 mg/dL (0.55-1.02); EST Glomerular Filtration Rate 46 mL/min (>60); Est Glom Filt Rate - Afr Amer 55 mL/min (>60); Estimated Creatinine Clearance 32.31 ml/min; Glucose 137 mg/dL (74-106); Potassium 3.9 mmol/L (3.5-5.1); Sodium Level 142 mmol/L (136-145)
[2018-06-22 06:24] LABS: Hemoglobin 10.9 g/dl (12.0-15.0); Mean Corp Hgb Conc 31.1 g/gl (32-36); Mean Corpuscular Hgb 32.1 pg (27.0-32.0); Mean Corpuscular Volume 102.9 fL (81-99); Platelet Count 163 K/mm3 (150-450); RBC Distribution Width CV 18.6 % (11.6-14.6); RBC Distribution Width SD 68.1 fl (35.1-43.9); White Blood Count 6.2 K/mm3 (4.4-11.0)
[2018-06-22 06:37] LABS: Scan Indicated on CBC? Y/N YES- FLAGS NOTED
[2018-06-22 07:01] LABS: Bedside Glucose 148 mg/dL (70-110)
[2018-06-22 07:24] LABS: Differential Comment SCAN
--- NOTE | 2018-06-22 07:36 | PN.CARD_ITS ---
Subjectve: Patient seen and evaluated. Appears to be doing better. She however had mild shortness of breath last night as well. Objective: Vital Signs Temp Pulse Resp BP Pulse Ox 98.2 F 78 16 120/77 99 06/22/18 04:07 06/22/18 07:00 06/22/18 04:07 06/22/18 04:07 06/22/18 04:07 Oxygen Flow Rate (L/min) 2 Oxygen Delivery Method Nasal Cannula Weight: 191 lb 5.78 oz Body Mass Index (BMI) 36.8 Intake and Output for Last 24 Hours 06/20/18 06/21/18 06/22/18 23:59 23:59 23:59 Intake Total 360 / 360 540 / 540 Output Total 1670 / 1670 2500 / 2500 500 / 500 Balance -1310 / -1310 -2500 / -2500 40 / 40 General: Awake, Alert, Oriented x 3 HEENT: PERRL, EOMI, Sclera Non Icteric Neck: Supple, Good ROM, No Lymph Node Enlargement Lungs: Clear to auscultation Cardiovascular: Regular Rhythm, Normal S1, Normal S2, No Murmurs, No Rubs, No Gallops Vascular: No Carotid Bruits, Normal Femoral Pulses, Normal Radial Pulses, Normal Dorsalis Pedal Pulse, Normal Posterior Tibial Pulses Abdomen: Bowel Sounds Present, Soft, Non Tender, No HSM, No Organomegaly Extremities: No Cyanosis, No Clubbing, No edema Neurological: No Focal Motor or Sensory Deficit 06/22/18 05:45: WBC 6.2, RBC 3.40 L, Hgb 10.9 L, Hct 35.0 L, MCV 102.9 H, MCH 32.1 H, MCHC 31.1 L, RDW 18.6 H, RDW Differential 68.1 H, Plt Count 163, MPV 11.0 06/22/18 05:45: PT 14.5, INR 1.1 06/22/18 05:45: Sodium 142, Potassium 3.9, Chloride 102, Carbon Dioxide 28.0, Anion Gap 12, BUN 33 H, Creatinine 1.24 H, Est GFR (MDRD) Af Amer 55 L, Est GFR (MDRD) Non-Af 46 L, BUN/Creatinine Ratio 26.6 H, Glucose 137 H, Calcium 8.3 L Rhythm: EKG: ECHO: Stress Test: Cardiac Cath: PCI: CT Surgery: Holter monitor: EPS: PPM: CXR: Chest CT Scan: Medical Necessity - Tobacco Use Smoking Status: Never smoker Tobacco Use: Non-smoker Assessment/Plan 1. Shortness of breath.-Congestive heart failure acute systolic * She appears to have marked shortness of breath which it appears is secondary to acute congestive heart failure. An echocardiogram that was performed this morning demonstrates an ejection fraction of 15-20%. The global longitudinal score is noted to be markedly reduced. The above is likely secondary to the chemotherapeutic regimen that she received. This is likely secondary to the Avastin. * Recommendation at this time will be to continue the losartan * Continue beta-nestor with Coreg at 6.25 mg twice a day * Will diurese with Lasix due to her elevated natruretic peptide level previously. Would recommend twice daily dosage * * She underwent a cardiac catheterization yesterday which demonstrated no significant stenosis noted in her large epicardial coronary arteries. Her ejection fraction was confirmed at 15-20%. 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 This report will be sent to her oncologist. 2. Hypertension * She does have a history of hypertension and was on losartan. I would recommend continuing the above and titrating the beta-nestor to improve her blood pressure better. It is unlikely that her condition is secondary to hypertensive cardiomyopathy though. * * * An office visit will be arranged in a few weeks. From the cardiac standpoint she is stable to be discharged on the current medications * Thank you for allowing me to participate in the care of your patient. Please don't hesitate to call if any issues arise
[2018-06-22] MEDS: Carvedilol 6.25 MG Tablet PO (09:55)
[2018-06-22] MEDS: Clopidogrel Bisulfate 75 MG Tablet PO (09:55)
[2018-06-22] MEDS: Magnesium Oxide 400 MG Tablet PO (09:55)
[2018-06-22] MEDS: Furosemide 40 MG Tablet PO (09:56)
[2018-06-22] MEDS: Losartan Potassium 25 MG Tablet PO (09:56)
[2018-06-22] MEDS: Enoxaparin 40 MG/0.4 ML Syringe SC (09:56)
--- NOTE | 2018-06-22 10:53 | PCM.DC ---
- Discharge Diagnoses Current Active Problems: Current Active and Chronic Problems Primary cancer of ovary with widespread metastatic disease (Chronic) Dyspnea (Acute) You will use the following diet at home:: Cardiac, Fluid restricted (specify 2000 mls, 1500 mls) - 1500, Other - Low sodium Discharge Activity: Return to Normal Activity, - - Follow post-op cath instructions. Call your doctor if your incision/area has: Continuous Slow Oozing, Sudden Increased Bleeding, Increased Pain/ Swelling, Increased Redness, Foul Smelling Discharge Call your doctor if you observe: Shortness of breath, Dizziness, Fainting spells, Chest pain Allergies/Adverse Reactions: Allergies lisinopril Allergy (Verified 06/20/18 00:17) Other Medications to take at Discharge Glipizide [Glucotrol Xl] 10 mg PO BID 06/19/18 Losartan Potassium 25 mg PO DAILY 06/19/18 Magnesium Oxide [Mag-Ox 400] 400 mg PO BID 06/19/18 Metformin(XR) [Glucophage Xr] 1,000 mg PO BID 06/19/18 Ondansetron [Zofran Odt] 4 mg PO Q8H PRN PRN 06/19/18 Simvastatin 20 mg PO QHS 06/19/18 Albuterol Aerosols [Ventolin Aerosols] 2.5 mg INHALATION Q2H PRN PRN #90 vial.neb. 06/22/18 Carvedilol [Coreg (Beta Richi)] 6.25 mg PO BID #60 tab 06/22/18 Furosemide [Lasix] 40 mg PO BID@1000,1800 #60 tab 06/22/18 Ipratropium/Albuterol Sulfate [Duoneb] 3 ml INHALATION Q4HWA.RT #90 ampul.neb 06/22/18 The following prescriptions were given: Albuterol Aerosols [Ventolin Aerosols] 2.5 mg INHALATION Q2H PRN PRN #90 vial.neb. PRN Reason: SOB &/OR WHEEZING Ipratropium/Albuterol Sulfate [Duoneb] 3 ml INHALATION Q4HWA.RT #90 ampul.neb Furosemide [Lasix] 40 mg PO BID@1000,1800 #60 tab Carvedilol [Coreg (Beta Richi)] 6.25 mg PO BID #60 tab Primary Care Physician: Lila Guido PA-C [Primary Care Provider] - Please follow up with your Primary Care Physician in: 1 Week Test Results: Test results from this visit will be discussed in further detail at your follow-up appointment, if applicable. Please Follow Up With: Marc Ayoub MD - [phone] When: Office to call you to schedule appt. Please Follow Up With: Oncology When: As scheduled Proposed Discharge Date: 06/22/18
--- NOTE | 2018-06-22 10:55 | CASEMGMT ---
Per Ritika HUBER, pt to be sent home with nebulizer and solution. Scripts faxed to [facility] per pt preference at this time with Ritika [employer] Medicare provider number at this time. Call to [facility] and they do have a nebulizer in stock and state they can run through pt's insurance. Pt updated on all at this time, voices understanding. Caitlyn HARRELL CM
--- NOTE | 2018-06-22 10:57 | PCM.DC.SUM ---
<Aparna Go - Last Filed: 06/22/18 11:09> Discharge Date and Diagnosis Date of Admission: 06/19/18 Date of Discharge: 06/22/18 - Primary Discharge Diagnosis Active and Suspected Problems 1. Acute respiratory insufficiency without hypoxia secondary to acute systolic CHF 2. 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 There is cardiac enlargement and pericardial fluid.. Borderline to minimally enlarged mediastinal lymph nodes. The imposer and reconstructed coronal view demonstrate the patient's heart on the right side which is not visualized on the axial views, correlation is recommended. Percutaneous operative abdominal drain noted on the imposer view not seen on the submitted images, findings in the right kidney could be due to air or renal calculi, correlation advised. Remote granulomatous exposure. Electronically Signed: Tiffani Meza MD at 6:56 EDT , Service support , Dr. Ayoub- Cardiology Operations: None Procedures: 2-D Echocardiogram, Cardiac catheterization Summary of Care Provided: The patient is a 68 year old F admitted 06/19/2018 due to dyspnea. 1. Acute respiratory insufficiency without hypoxia secondary to acute systolic CHF/chemotherapy induced cardiomyopathy-patient notes history of dyspnea following prior chemotherapy treatments. She states in the past, this is improved over time. However her most recent chemotherapy treatment was 3 weeks ago and she has had worsening dyspnea since that time. Chest CT showed small right pleural effusion, possible pneumonia in the right base. Small infiltrate in the middle lobe and lingula. Cardiac enlargement and pericardial fluid. Echocardiogram showed an EF of 15%, stage II diastolic dysfunction, severe global hypokinesis of the left ventricle, mild tricuspid valve insufficiency, trivial pericardial effusion. BNP elevated at outside facility. Cardiology consulted during admission. Patient underwent cardiac catheterization which demonstrated no obstructive coronary arteries. Patient will continue carvedilol, losartan, Lasix at discharge. Breathing improved. Walking pulse ox completed and patient did not require supplemental oxygen. Patient will be discharged with nebulizer, DuoNeb and aerosol treatments for shortness of breath secondary to chemotherapy-induced cardiomyopathy. Follow-up with cardiology in 1-2 weeks. Repeat BMP in one week to assess kidney function on lasix regimen. 2. Type 2 diabetes mellitus-continue home regimen. Glucose well controlled during admission. 3. Hypertension-stable, continue home losartan regimen. Started on carvedilol 6.25 mg twice daily. Home isosorbide regimen discontinued. Started on Lasix 40 mg twice daily. 4. Hyperlipidemia-continue statin. 5. Metastatic ovarian cancer-original diagnosis with stage III ovarian cancer in 2016. Status post hysterectomy. Recurrence to lymph nodes most recently. Recently completed final chemotherapy treatment 3 weeks ago. Patient with right nephrostomy tube secondary to enlarged lymph node across ureter, causing hydronephrosis. Follows with [facility] in [place]. General: Alert, Oriented x3, Cooperative, No apparent distress HEENT: Atraumatic, PERRLA, EOMI, Normocephalic Neck: Supple, No JVD, Negative Carotid Bruits Lungs: Clear to auscultation, Diminished Cardiovascular: Regular rate, Regular Rhythm, Normal S1, Normal S2, No murmurs Abdomen: Bowel Sounds Present, Soft, Non Tender, Non-Distended, Obese, - - Nephrostomy tube intact. Extremities: No clubbing, No cyanosis, No edema, Capillary Refill Less than 3 Seconds Skin: No rashes, No breakdown Musculoskeletal: No Tenderness to Palpation of Joints or Extremities Neurological: Cranial nerves II-XII grossly intact, Neuro grossly intact Psych/Mental Status: Normal Affect, Appropriate Patient seen exam prior to discharge. Physical assessment as noted above. Patient stable for discharge home with further follow-up with primary care physician, cardiology and oncology. This patient was seen by RAMANDEEP Montes De Oca under the supervision of Dr. Jensen. Discharge Diet: Low fat/ Low Cholesterol, 8 Cup Fluid Restriciton, 2000 mg Sodium Diet Discharge Activity: Return to Normal Activity, - - Follow post-op cath instructions. Call your doctor if your incision/area has: Continuous Slow Oozing, Sudden Increased Bleeding, Increased Pain/ Swelling, Increased Redness, Foul Smelling Discharge Call your doctor if you observe: Shortness of breath, Dizziness, Fainting spells, Chest pain Home Medications: Medications to take at Discharge Glipizide [Glucotrol Xl] 10 mg PO BID 06/19/18 Losartan Potassium 25 mg PO DAILY 06/19/18 Magnesium Oxide [Mag-Ox 400] 400 mg PO BID 06/19/18 Metformin(XR) [Glucophage Xr] 1,000 mg PO BID 06/19/18 Ondansetron [Zofran Odt] 4 mg PO Q8H PRN PRN 06/19/18 Simvastatin 20 mg PO QHS 06/19/18 Albuterol Aerosols [Ventolin Aerosols] 2.5 mg INHALATION Q2H PRN PRN #90 vial.neb. 06/22/18 Carvedilol [Coreg (Beta Richi)] 6.25 mg PO BID #60 tab 06/22/18 Furosemide [Lasix] 40 mg PO BID@1000,1800 #60 tab 06/22/18 Ipratropium/Albuterol Sulfate [Duoneb] 3 ml INHALATION Q6HWA.RT #90 ampul.neb 06/22/18 Following Prescrptions Were Given to Patient: Albuterol Aerosols [Ventolin Aerosols] 2.5 mg INHALATION Q2H PRN PRN #90 vial.neb. PRN Reason: Shortness Of Breath Ipratropium/Albuterol Sulfate [Duoneb] 3 ml INHALATION Q6HWA.RT #90 ampul.neb Furosemide [Lasix] 40 mg PO BID@1000,1800 #60 tab Carvedilol [Coreg (Beta Richi)] 6.25 mg PO BID #60 tab Primary Care Physician: Lila Guido PA-C [Primary Care Provider] - Please follow up with your Primary Care Physician in: 1 Week Please Follow Up With: Marc Ayoub MD - [phone] When: Office to call you to schedule appt. 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
--- NOTE | 2018-06-22 11:06 | DS.PCM_ITS ---
<Aparna Go - Last Filed: 06/22/18 11:09> Discharge Date and Diagnosis Date of Admission: 06/19/18 Date of Discharge: 06/22/18 - Primary Discharge Diagnosis Active and Suspected Problems 1. Acute respiratory insufficiency without hypoxia secondary to acute systolic CHF 2. 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 There is cardiac enlargement and pericardial fluid.. Borderline to minimally enlarged mediastinal lymph nodes. The manager urgent care and reconstructed coronal view demonstrate the patient's heart on the right side which is not visualized on the axial views, correlation is recommended. Percutaneous operative abdominal drain noted on the manager urgent care view not seen on the submitted images, findings in the right kidney could be due to air or renal calculi, correlation advised. Remote granulomatous exposure. Electronically Signed: Tiffani Meza MD at 6:56 EDT , Service support , Dr. Ayoub- Cardiology Operations: None Procedures: 2-D Echocardiogram, Cardiac catheterization Summary of Care Provided: The patient is a 68 year old F admitted 06/19/2018 due to dyspnea. 1. Acute respiratory insufficiency without hypoxia secondary to acute systolic CHF/chemotherapy induced cardiomyopathy-patient notes history of dyspnea following prior chemotherapy treatments. She states in the past, this is improved over time. However her most recent chemotherapy treatment was 3 weeks ago and she has had worsening dyspnea since that time. Chest CT showed small right pleural effusion, possible pneumonia in the right base. Small infiltrate in the middle lobe and lingula. Cardiac enlargement and pericardial fluid. Echocardiogram showed an EF of 15%, stage II diastolic dysfunction, severe global hypokinesis of the left ventricle, mild tricuspid valve insufficiency, trivial pericardial effusion. BNP elevated at outside facility. Cardiology consulted during admission. Patient underwent cardiac catheterization which demonstrated no obstructive coronary arteries. Patient will continue carvedilol , losartan, Lasix at discharge. Breathing improved. Walking pulse ox completed and patient did not require supplemental oxygen. Patient will be discharged with nebulizer, DuoNeb and aerosol treatments for shortness of breath secondary to chemotherapy-induced cardiomyopathy. Follow-up with cardiology in 1-2 weeks. Repeat BMP in one week to assess kidney function on lasix regimen. 2. Type 2 diabetes mellitus-continue home regimen. Glucose well controlled during admission. 3. Hypertension-stable, continue home losartan regimen. Started on carvedilol 6.25 mg twice daily. Home isosorbide regimen discontinued. Started on Lasix 40 mg twice daily. 4. Hyperlipidemia-continue statin. 5. Metastatic ovarian cancer-original diagnosis with stage III ovarian cancer in 2016. Status post hysterectomy. Recurrence to lymph nodes most recently. Recently completed final chemotherapy treatment 3 weeks ago. Patient with right nephrostomy tube secondary to enlarged lymph node across ureter, causing hydronephrosis. Follows with [facility] in [place]. General: Alert, Oriented x3, Cooperative, No apparent distress HEENT: Atraumatic, PERRLA, EOMI, Normocephalic Neck: Supple, No JVD, Negative Carotid Bruits Lungs: Clear to auscultation, Diminished Cardiovascular: Regular rate, Regular Rhythm, Normal S1, Normal S2, No murmurs Abdomen: Bowel Sounds Present, Soft, Non Tender, Non-Distended, Obese, - - Nephrostomy tube intact. Extremities: No clubbing, No cyanosis, No edema, Capillary Refill Less than 3 Seconds Skin: No rashes, No breakdown Musculoskeletal: No Tenderness to Palpation of Joints or Extremities Neurological: Cranial nerves II-XII grossly intact, Neuro grossly intact Psych/Mental Status: Normal Affect, Appropriate Patient seen exam prior to discharge. Physical assessment as noted above. Patient stable for discharge home with further follow-up with primary care physician, cardiology and oncology. This patient was seen by RAMANDEEP Montes De Oca under the supervision of Dr. Jensen. Discharge Diet: Low fat/ Low Cholesterol, 8 Cup Fluid Restriciton, 2000 mg Sodium Diet Discharge Activity: Return to Normal Activity, - - Follow post-op cath instructions. Call your doctor if your incision/area has: Continuous Slow Oozing, Sudden Increased Bleeding, Increased Pain/ Swelling, Increased Redness, Foul Smelling Discharge Call your doctor if you observe: Shortness of breath, Dizziness, Fainting spells , Chest pain Home Medications: Medications to take at Discharge Glipizide [Glucotrol Xl] 10 mg PO BID 06/19/18 Losartan Potassium 25 mg PO DAILY 06/19/18 Magnesium Oxide [Mag-Ox 400] 400 mg PO BID 06/19/18 Metformin(XR) [Glucophage Xr] 1,000 mg PO BID 06/19/18 Ondansetron [Zofran Odt] 4 mg PO Q8H PRN PRN 06/19/18 Simvastatin 20 mg PO QHS 06/19/18 Albuterol Aerosols [Ventolin Aerosols] 2.5 mg INHALATION Q2H PRN PRN #90 vial.neb. 06/22/18 Carvedilol [Coreg (Beta Richi)] 6.25 mg PO BID #60 tab 06/22/18 Furosemide [Lasix] 40 mg PO BID@1000,1800 #60 tab 06/22/18 Ipratropium/Albuterol Sulfate [Duoneb] 3 ml INHALATION Q6HWA.RT #90 ampul.neb Following Prescrptions Were Given to Patient: Albuterol Aerosols [Ventolin Aerosols] 2.5 mg INHALATION Q2H PRN PRN #90 vial.neb. PRN Reason: Shortness Of Breath Ipratropium/Albuterol Sulfate [Duoneb] 3 ml INHALATION Q6HWA.RT #90 ampul.neb Furosemide [Lasix] 40 mg PO BID@1000,1800 #60 tab Carvedilol [Coreg (Beta Richi)] 6.25 mg PO BID #60 tab Primary Care Physician: Lila Guido PA-C [Primary Care Provider] - Please follow up with your Primary Care Physician in: 1 Week Please Follow Up With: Marc Ayoub MD - [phone] When: Office to call you to schedule appt. 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
--- NOTE | 2018-06-22 16:00 | CASEMGMT ---
Addendum entered by Dariana Berg 06/23/18 10:50: This RN CM received a fax from [employer] this am stating that the appeal had been denied for meds to be run through part D. Ritika HUBER aware and voices understanding. Call to pt at this time and updated, voices understanding. Pt states that pharmacy had told her that total would be $70 for meds and she states that she will 'just have to pay for them.' Pt thanks this RN NIGHAT for everything at this time and states no further questions/concerns/needs at this time. Pt states that she 'got a good night's sleep and that she is feeling 'so much better.' Caitlyn HARRELL CM Original Note: Call from [employer] discharge door operator, she received call from pt stating that [facility] would not cover nebulizer for pt. This RN CM had spoken with [facility] previously and they had stated that they could get nebulizer for pt through her MCR. Call to [facility] and they state that they cannot run nebulizers through [facility] and they are not sure who stated that to this RN NIGHAT. Call to pt and she states that she bought the nebulizer outright but that the nebulizer solutions were not filled and [facility]. [facility] and per tech, the dx code for cardiomyopathy will not work for [facility] at this time. Ritika HUBER updated on all at this time, voices understanding and states that unfortunately, pt does not have any of the 'approved' dx codes at this time. Call back to [facility] pharmacy and per pharmacist, they can try to run meds through pt's [employer] part d but it will be denied because [facility] prefers that it runs through part B but she states that Ritika HUBER can then try to appeal. Ritika HUBER aware and provided number to appeal at this time. Pt updated on all at this time and thanks this RN CM and Ritika HUBER for 'the effort.' Caitlyn HARRELL CM
== END 2018-06-22 11:54 | disposition home or self-care (01) | DRG 287 ==
PROVIDERS: Internal Medicine; Nurse Practitioner Family; Admitting Provider Hospitalist; Family Provider Family Medicine; PCP Family Medicine; Visit Provider Internal Medicine
DX: I50.21 Acute systolic (congestive) heart failure (principal); C56.9 Malignant neoplasm of unspecified ovary; C77.9 Secondary and unspecified malignant neoplasm of lymph node, unspecified; I42.7 Cardiomyopathy due to drug and external agent; E11.9 Type 2 diabetes mellitus without complications; Z79.84 Long term (current) use of oral hypoglycemic drugs; Z93.6 Other artificial openings of urinary tract status; E78.5 Hyperlipidemia, unspecified; Z90.710 Acquired absence of both cervix and uterus; I10 Essential (primary) hypertension; R06.89 Other abnormalities of breathing; T45.1X5A Adverse effect of antineoplastic and immunosuppressive drugs, initial encounter; Z79.899 Other long term (current) drug therapy
CPT/HCPCS: 36415; 36600; 71250; 80048; 82803; 82962; 85027; 85610; 87449; 87633; 93005; 93306; 93458; 94640; 99152; J7030; J7040; Q9967; A4216; C8929; J1940

== ENCOUNTER → 2018-07-23 13:33 | Outpatient (CLI) | payer MEDICARE, OTHER, SELFPAY ==
--- NOTE | 2018-07-23 13:35 | ECHODONC_ITS ---
Reason For Study: dyspnea/SOB Procedure This was a 2D Doppler, Color Flow transthoracic echocardiogram. Myocardial strain analysis was performed in this exam to aid in the assessment of cardiac function. Exam performed in department. Left Ventricle Normal LV size. Mild concentric left ventricular hypertrophy. The estimated ejection fraction is 30 %. The 3D full volume ejection fraction is 36 %. The global longitudinal strain = -9.6% (abnormal). The prior global longitudinal strain was -7 % . Compared to previous study, the left ventricular systolic function has improved.. There is moderate to severe global hypokinesis of the left ventricle. Right Ventricle Normal RV size. Normal systolic function. Atria Normal left atrium. Normal right atrium. Mitral Valve Normal mitral valve. Mild (1+) eccentric mitral valve insufficiency. Tricuspid Valve Normal tricuspid valve. Unable to estimate RV systolic pressure due to inadequate jet, pulmonary artery pressure probably normal. Aortic Valve Trisinus/trileaflet aortic valve. Mild focal aortic valve calcification. Pulmonic Valve Normal pulmonic valve. Great Vessels Normal aortic root. The pulmonary artery is normal size. Normal inferior vena cava. Pericardium/Pleural No pericardial effusion. MMode/2D Measurements & Calculations LVIDd: 5.2 cm IVSd: 1.2 cm Ao root diam: 3.3 cm LVIDs: 4.3 cm LVPWd: 1.2 cm LA dimension: 3.9 cm RVDd: 2.9 cm FS: 17.3 % LAV(MOD-bp): 47.6 ml LA A4 area: 17.3 cm2 RA A4 area: 9.3 cm2 LAV(MOD-bp) Indexed: 26.0 ml/m2 LAV(MOD-sp2): 47.5 ml LAV(MOD-sp4): 48.3 ml Doppler Measurements & Calculations MV E max ad: 64.4 cm/sec Lat Peak E' Ad: 3.1 cm/sec Med Peak E' Ad: 3.0 cm/sec MV A max ad: 109.9 cm/sec E/E' lat: 20.8 E/E' med: 21.2 MV E/A: 0.59 Ao V2 max: 142.9 cm/sec LV V1 max: 72.8 cm/sec PA V2 max: 82.6 cm/sec Ao max P.2 mmHg LV V1 max P.1 mmHg PI dec slope: 144.9 cm/sec2 Interpretation Summary Normal LV size. The estimated ejection fraction is 30 %. The 3D full volume ejection fraction is 36 %. The global longitudinal strain = -9.6% (abnormal). The prior global longitudinal strain was -7 % . Compared to previous study, the left ventricular systolic function has improved.. Ordering Physician: Marc Ayoub Referring Physician: Lila Guido Performed By: Annamaria Cuevas RDCS, RVT
== END ==
PROVIDERS: Family Provider Family Medicine; PCP Family Medicine; Referring Provider Internal Medicine Cardiovascular Disease; Visit Provider Internal Medicine Cardiovascular Disease
DX: I42.7 Cardiomyopathy due to drug and external agent (principal); T45.1X5A Adverse effect of antineoplastic and immunosuppressive drugs, initial encounter
CPT/HCPCS: 0399T; 93306

== ENCOUNTER → 2018-07-30 10:28 | Outpatient (CLI) | payer MEDICARE, OTHER, SELFPAY ==
--- NOTE | 2018-07-30 10:33 | PCM.CR.ITP ---
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 Maintain the individual as the primary focus of care. 2. To improve the patient's quality of life. 3. Identification of cardiac risk factors and provide cardiac risk factor management. 4. Enhance the psychosocial status of the patient. 5. Reconditioning enough to allow the patient to resume customary activities. 6. Control symptoms of cardiac disease Scale for measuring improvement of personal goals: Enter appropriate number in Comments. 2 = Unchanged. 3 = Slightly Better. 4 = Moderate Improvement. 5 = Met my Goal Personal Goals: Initial Assessment: Improve muscle strength and endurance, Improve diet and eating habits (eat healthier), Other goal: - strengthen heart Exercise - Initial Assessment - Visit Date of Eval: 07/30/18 - established intitial ITP start on Session #:: 0 - Stages of Change Stages of Change:: Action - Exercise Prescription Mode:: Treadmill, Biodyne, Airdyne, NuStep, Arm Ergometer Angina with exercise?: No - Hypertension Do any of the following apply?: Yes, Medication Peak Exercise Blood Pressure:: 138/54 - Intervention Home Exercise/Activity Goal:: Sitting Time <3 hrs/day - Education Goals:: Warm-up, RPE BRANDAN Scale, S/S, Safe Exercise, Self-Monitoring - Exercise Program Goals Exercise Program Goals: Aerobic Activity >30 min Nutrition - Initial Assessment - Program Goals Nutrition Program Goals: LDL <70. Total Cholesterol <200. HDL >45. Triglycerides <150. HgbA1C <7%. BMI <25 - Visit Date of Assessment:: 07/30/18 - Stages of Change Stages of Change:: Action - Diabetes Diabetes:: Yes - Weight Management Height: 5 ft 2 in Weight:: 184 lb Body Fat %:: 33.6 - Intervention Referral to dietitian:: No - Patient declined Referral to Diabetic Clinic:: No - Patient declined Will attend diet classes:: Yes - Education Gave educational materials for:: Signs & symptoms of hypoglycemia, Signs & symptoms of hyperglycemia, Relate diabetes to coronary artery disease, Healthy eating Tobacco - Initial Assessment - Program Goals Tobacco Program Goals: Complete smoking cessation. Attend education classes. Improve Knowledge Test score - Stage of Change Stages of Change:: Action - Learning Barriers Learning Barriers: Vision, Ready to Learn - Family Support Do you have family support?: Yes - Tobacco Use Tobacco Use: Non-smoker Do you use smokeless tobacco?: No - Intervention Smoking Cessation Referral:: No Individual Education/Counseling:: No Education Schedule Given:: Yes - Education Gave educational material for:: Coronary artery disease, Risk factors, Sexuality, Medical compliance, Cardiac A&P, Angina signs & symptoms Psychosocial - Initial Assess - Target Goals Target Goals: Assess presence or absence of depression. Using a valid screening tool, maximizes coping skills. Positive support system - Stages of Change Stages of Change:: Action - Psychosocial Test Tool Used:: HANDS Depression Questionnaire - Intervention PS - Interventions: Yes Attend Stress Management Classes, No Uses Stress Management Skills - Education Gave educational materials for:: Coping techniques, Signs & symptoms of depression, Stress management, Relaxation techniques - Patient/Program Goal Preventative Medication(s):: Aspirin, Beta nestor, Statin/lipid - Assistive Devices Assistive Devices:: None Fall Risk Assessed:: Yes Patient Health Questionnaire Initial Assessment 1. Little interest or pleasure in doing things: Not at all 2. Feeling down, depressed, or hopeless: Not at all 3. Trouble falling or staying asleep, or sleeping too much: Not at all 4. Feeling tired or having little energy: Not at all 5. Poor appetite or overeating: Not at all 6. Feeling bad about yourself -- or that you are a failure or have let yourself or your family down: Not at all 7. Trouble concentrating on things, such as reading the newspaper or watching television: Not at all 8. Moving or speaking so slowly that other people could have noticed. Or the opposite - being so fidgety or restless that you have been moving around a lot more than usual: Not at all 9. Thoughts that you would be better off , or of hurting yourself in some way: Not at all Total Score: 0 SIDDHARTHA-Q SV Test - Statements CAD is a disease of the arteries in the heart: False Examples of risk factors for heart disease: True Angina is chest pain or discomfort: I Don't Know The benefits of resistance training include: True Eating more meat and dairy products: False Anti-platelet medications such as aspirin are important: False The only effective way to manage stress: False An exercise warm-up slowly increases heart rate: False Prepared, processed foods usually have high sodium: True Depression is common after a heart attack: True The statin medications lower cholesterol: True To control blood pressure, lower the amount of sodium: True If someone gets chest discomfort during walking: False Transfats are partially hydrogenated vegetable oils: I Don't Know Sleep apnea that is not treated increases the risk: True To control cholesterol, one should become a vegetarian: False Someone knows if he/she is exercising at the right level: False Diabetes cannot be prevented with exercise & health eating: False Stress is a large risk for heart attack: True A diet that can help lower blood pressure is rich in: True - Total Score Total Correct Responses: 14 Self-Efficacy Initial Assessment We would like to know how confident you are in doing certain activities. Please select your confidence level for:: Select your confidence level for the following using the scale 1-10 where 1 is not at all confident and 10 is totally confident. Your score is the average of all 6 responses. Fatigue: How confident are you that you can keep the fatigue caused by your disease from interfering with the things you want to do? Select Number: 10 Physical Discomfort or Pain: How confident are you that you can keep the physical discomfort or pain of your disease from interfering with the things you want to do? Select Number: 10 Emotional Distress: How confident are you that you can keep the emotional distress caused by your disease from interfering with the things you want to do? Select Number: 10 Other Symptoms or Health Problems: How confident are you that you can keep other symptoms or health problems from interfering with the things you want to do? Select Number: 10 Different Tasks and Activities: How confident are you that you can do the different tasks and activities needed to manage your health condition so as to reduce your need to see a doctor? Select Number: 10 Medication: How confident are you that you can do things other than just taking medication to reduce how much your illness affects your everyday life? Select Number: 10 Total Score:: 10 Nutrition Survey - Nutrition Survey Instructions Scoring Instructions: Scoring is as follows: Yes = 1 points. No = 0 point. Patient score that is >/=12 is considered to be at potential nutritional risk and could benefit from a referral to a registered dietitian. - Nutrition Survey Initial Have you lost >10 lbs over the past 2 months without trying?: Yes Are you following a special diet at home for diabetes, low fat, or low salt?: Yes Are you interested in meeting with a dietitian for help understanding your diet?: No Do you eat less than 3 meals a day?: No Do you eat fatty meats (diaz, sausage, ribs, etc), fried foods, desserts, large amounts of salad dressings, margarine, butter, or cheese most days?: Yes Do you have food allergies? [Enter types in comment field]: No Do you eat in restaurants more than 3 times a week?: No Do you season food with salt, seasoning salt, or garlic salt?: No Do you used canned, boxed, frozen meals, or soups, seasoning packets?: No Total Score:: 3
--- NOTE | 2018-07-30 10:34 | PCM.CR.HP2 ---
CR - History & Physical - General Arrival date:: 07/30/18 Arrival time:: 10:34 Date of Referral:: 07/24/18 Date of CR Evaluation:: 07/30/18 Referring Physician: Dr. Marc Ayoub Primary Diagnosis: Cchronic systolic heaert failure LVEF 15%, cardiomyopathy - History of Present Cardiac Event Onset Date: Enter Onset Date of cardiac illnesses in Comment field below Heart Failure EF <35%:: Yes - LVEF 15%; 06/20/2018 Type of Symptoms:: shortness of breath, possibly result of chemotherapy, found isac cardiomyopathy as relut of chemotherapy. Ovarian cancer 2017, 18 chemotherapy treatments, then found 5 enlarged lymph nodes and 12 more chemo treatments. Interventions with present event:: chemo therapy treatments; two heart echocardiograms and one heart cath. Were there any complications?: none - Medications Home Medications: Ambulatory Orders Medication Instructions Recorded Magnesium Oxide [Mag-Ox 400] 400 mg PO BID 06/19/18 Metformin(XR) [Glucophage Xr] 1,000 mg PO BID 06/19/18 Ondansetron [Zofran Odt] 4 mg PO Q8H PRN PRN 06/19/18 Simvastatin 20 mg PO QHS 06/19/18 Albuterol Aerosols [Ventolin 2.5 mg INHALATION Q2H PRN PRN #90 06/22/18 Aerosols] vial.neb. Ipratropium/Albuterol Sulfate 3 ml INHALATION Q6HWA.RT #90 06/22/18 [Duoneb] ampul.neb carvedilol 12.5 mg tablet 12.5 mg PO BID #60 tab 07/09/18 losartan 25 mg tablet 25 mg PO DAILY #90 tab 07/09/18 furosemide 40 mg tablet 40 mg PO BID@1000,1800 #60 tab 07/21/18 - Allergies Allergies/Adverse Reactions: Allergies lisinopril Allergy (Verified 07/09/18 11:15) Other - Sleep Disorder Evaluation Hx of Sleep Apnea: No Do you snore loudly (louder than talking or can be heard through closed doors)?: Yes Do you often feel tired/ fatigued/ sleepy during daytime?: No Has anyone observed you stop breathing during sleep?: No History of Hypertension (for STOP score): Yes STOP Results: Positive Advanced Directives - Advanced Directives Power of Scratch Finisher: No Living Will: No Advance Directives Information Provided: Yes Advance Directives on File: No DNR Order?:: No - MOLST See MOLST form: No Past Medical History - Past Medical Illness Medical History: Past Medical History (Last Updated 07/30/18 @ 10:44 by Dominick Ibanez CRT, TERRI, ANTOINETTE) Cardiomyopathy due to chemotherapy I42.7, T45.1X5A Chronic systolic (congestive) heart failure I50.22 Diabetes mellitus type II, controlled, with no complications E11.9 Essential (primary) hypertension I10 - Past Surgical History Surgical History: Past Surgical History (Last Updated 07/30/18 @ 10:45 by Dominick Ibanez CRT, TERRI, ANTOINETTE) History of hysterectomy for cancer Z90.710, C80.1 Surgical History: - - Lipoma removed from her neck. - Family History Summary Family History: Family History (Last Updated 07/30/18 @ 10:46 by Dominick Ibanez CRT, TERRI, ANTOINETTE) Mother Heart abnormality Sister Cancer Social History - Smoking History Smoking Status: Never smoker Hx Tobacco Use: No Hx Smoking Exposure: Yes - parents both smoked as child growing up. - Alcohol Use Alcohol Usage: No - Substance Abuse Hx Substance Use: No - Occupation Occupation (List type of work in comments):: Retired - Hobbies, Recreation, Social Activities Hobbies: Other - [employer] [facility] [employer] Recreational Activities: I am able to engage in all my recreational activities Social Environment - Status Marital Status: - Current Living Arrangements Living Environment:: Spouse - Children How many children do you have?: 1 - Do any of your children live nearby?: No - Safety Do you feel safe in your surroundings?: Yes - Assistance Do you need any assistance at home?: none Review of Systems - Review of Systems Hints: Right click = Denies (Slash). Left click = Reports ([place]) Review of Present Symptoms: Reports: Dizziness/Lightheadedness - if stand to fast., Fatigue, Appetite - Normal, Appetite - Special Diet - low sodium, Sleep - Normal. Denies: Shortness of Breath at Rest, Shortness of Breath with Exertion, Angina, Heart Arrhythmia/Irregularities, Sexual Changes - Pain Is Patient Pain Free?: Yes Pain Location: none Pain Level: 0/10 Risk Factor Assessment - Chief Complaint Chief Complaint: THe patient is a 68 yr old female patient of Dr. Ayoub who presents to cardiac rehab today following ercent hospitalization for spontaneuous shortness of breath. Diagnostic testing revealed cardiomyopathy due to chemotherapy treatment and chronic systolic heart failure with decreased LEVEF 15%. - Vital Signs Temperature: 98.7 F Respiratory Rate: 16 Pulse Ox: 96 Nailbeds:: pink - Pulse Pulse Rate: 67 Pulse Rhythm: Regular - Hypertension How long have you been treated?: 20 years give or take On medication(s)?: yes Blood Pressure Sitting - Left Arm: 138/54 - Diabetes Diabetic History: Type II, Medication Dependent - metformin daily BID - Obesity Height: 5 ft 2 in Weight:: 184 lb Weight in Pounds: 184.0 lbs Weight Source: Standing Scale Body Mass Index (BMI): 33.6 Nutritional Referral for Obesity: Yes - Physical Inactivity Physical Inactivity: None - Risk Stratification Risk Guidelines: Lowest Risk: Risk Factor for Smoking, Risk Factor for Dyslipidemia, Risk Factor for Diabetes, Risk Factor for Hypertension, Risk Factor for Sedentary Lifestyle, Risk Factor for Depression, Highest Risk: Risk Factor for Obesity - For Smoking Smoking Risk Guidelines: Smoking Low Risk: None or quit greater than 6 months ago. Smoking Moderate Risk: Smoker or quit 6 months or less ago. Smoking High Risk: Smoker - For Dyslipidemia Dyslipidemia Risk Guidelines: Low Risk: Moderate Risk: High Risk: 15-25% fat 25.1-29% fat >/= 30% fat. <7% sat fat 7-9% sat fat >9% sat fat. <150 mg chol 150-299 mg chol >/= 300 mg chol. LDL <100 LDL 100-129 LDL >/= 130. Chol/HDL ratio <5.0 Chol/HDL ratio 5.0-6.0 Chol/HDL ratio >6.0. Triglycerides <100 Triglycerides 100-149 Triglycerides >/= 150 - For Diabetes Mellitus Diabetes Risk Guidelines: Diabetes Low Risk: HgA1c <6.5% and/or FBG <120. Diabetes Moderate Risk: HgA1c 6.6-7.9% and/or FBG 120-180. Diabetes High Risk: HgA1c >/= 8% and/or FBG >180 - For Obesity/Overweight Obesity/Overweight Risk Guidelines: Obesity Low Risk: BMI <25.0. Obesity Moderate Risk: BMI 25-29.9. Obesity High Risk: BMI >/= 30.0 - For Hypertension Hypertension Risk Guidelines: Hypertension Low Risk: Systolic <120 and Diastolic <80. Hypertension Moderate Risk: Systolic 120-139 and Diastolic 80-89. Hypertension High Risk: Systolic >/= 140 and Diastolic >/= 90 - For Sedentary Lifestyle Sedentary Lifestyle Risk Guidelines: Sedentary Lifestyle Low Risk: >/= 1,500 kcal/week. Sedentary Lifestyle Moderate Risk: 700-1,499 kcal/week. Sedentary Lifestyle High Risk: < 700 kcal/week - For Depression Depression Risk Guidelines: Depression Low Risk: Not clinically depressed. Depression Moderate Risk: Mildly depressed. Depression High Risk: Clinically depressed - Family History Family History: Family History (Last Updated 07/30/18 @ 10:46 by Dominick Ibanez, ENDOSCOPY RN, [employer], BS) Mother Heart abnormality Sister Cancer Motivation - Motivation to Participate On a scale of 1 to 10, how prepared are you to commit to attending program?: 10 What do you see as barriers to successfully being able to complete the program?: conflicting schedule to doctors appointment What do you see as the benefits of succesfully completing the program? In other words, what do you hope to get out of participating in the program?: strengthening the heart Are there issues you are dealing with that will interfere with completing the program?: none Do you have a spouse or signficant other, family or friends who will help support you to complete the program?: yes
[2018-07-30 10:56] VITALS: BP 138/54; PULSE 67; RESP 16; TEMP 37.1; O2SAT 96; BMI 33.6
[2018-07-30 11:36] VITALS: BP 138/54
== END ==
PROVIDERS: Family Provider Family Medicine; PCP Family Medicine; Referring Provider Internal Medicine Cardiovascular Disease; Visit Provider Internal Medicine Cardiovascular Disease
DX: I50.22 Chronic systolic (congestive) heart failure (principal); I42.9 Cardiomyopathy, unspecified

== ENCOUNTER 2018-08-05 14:15 | Outpatient (RCR) | payer MEDICARE, OTHER, SELFPAY | END 2018-08-05 23:59 | LOC: CR 14:15 | PROVIDERS: Family Provider Family Medicine; PCP Family Medicine; Referring Provider Internal Medicine Cardiovascular Disease; Visit Provider Internal Medicine Cardiovascular Disease | DX: I42.8 Other cardiomyopathies (principal); R06.00 Dyspnea, unspecified | CPT/HCPCS: 93798 ==

== ENCOUNTER 2018-09-04 14:15 | Outpatient (RCR) | payer MEDICARE, OTHER, SELFPAY ==
--- NOTE | 2018-09-02 08:03 | PCM.CR.ITP ---
General Information - General Information Admitting Diagnosis: Chronic systolic HF, Cardiomyopathy - Education/Goals Cardiac Rehabilitation Goals: 1. Maintain the individual as the primary focus of care. 2. To improve the patient's quality of life. 3. Identification of cardiac risk factors and provide cardiac risk factor management. 4. Enhance the psychosocial status of the patient. 5. Reconditioning enough to allow the patient to resume customary activities. 6. Control symptoms of cardiac disease Scale for measuring improvement of personal goals: Enter appropriate number in Comments. 2 = Unchanged. 3 = Slightly Better. 4 = Moderate Improvement. 5 = Met my Goal Exercise - 30-day Assessment - Visit Date of Eval: 09/02/18 Session #:: 10 - Stages of Change Stages of Change:: Action - Exercise Prescription Mode:: Treadmill, Airdyne, NuStep, Arm Ergometer Frequency (x/week): 3 Duration:: 30 METs - Progression: 0.5-1 MET as tolerated: 3.5 Target Heart Rate:: 105-113 Max HR 109 - Hypertension Resting Blood Pressure:: 124/74 Peak Exercise Blood Pressure:: 148/60 - Education Goals:: Warm-up, RPE BRANDAN Scale, S/S, Safe Exercise, Self-Monitoring - Exercise Program Goals Exercise Program Goals: Aerobic Activity >30 min, B/P <130/80 Nutrition - 30-Day Assessment - Program Goals Nutrition Program Goals: LDL <70. Total Cholesterol <200. HDL >45. Triglycerides <150. HgbA1C <7%. BMI <25 - Visit Date of Eval: 09/02/18 - Stages of Change Stages of Change:: Action - Lipids Has the patient seen the dietitian?: No - Diabetes Diabetes:: Yes Insulin: No - Weight Management Weight:: 85.275 kg - Intervention Referral to dietitian:: No Referral to Diabetic Clinic:: No Will attend diet classes:: Yes - Education Attended class for:: Signs & symptoms of hypoglycemia, Signs & symptoms of hyperglycemia, Relate diabetes to coronary artery disease, Healthy eating Tobacco - Initial Assessment - Program Goals Tobacco Program Goals: Complete smoking cessation. Attend education classes. Improve Knowledge Test score - Learning Barriers Learning Barriers: Vision, Ready to Learn Tobacco - 30-Day Assessment - Program Goals Tobacco Program Goals: Complete smoking cessation. Attend education classes. Improve Knowledge Test score - Stage of Change Stages of Change:: Action - Learning Barriers Learning Barriers: Participates in education - Family Support Do you have family support?: Yes - Tobacco Use Tobacco Use: Non-smoker Do you use smokeless tobacco?: No - Intervention Smoking Cessation Referral:: No Individual Education/Counseling:: No Education Schedule Given:: Yes - Education Attended class for:: Tobacco triggers, Coronary artery disease, Risk factors, Sexuality, Medical compliance, Cardiac A&P, Angina signs & symptoms Psychosocial - Initial Assess - Target Goals Target Goals: Assess presence or absence of depression. Using a valid screening tool, maximizes coping skills. Positive support system - Psychosocial Test Tool Used:: HANDS Depression Questionnaire - Assistive Devices Fall Risk Assessed:: Yes Psychosocial - 30-Day Assess - Target Goals Target Goals: Assess presence or absence of depression. Using a valid screening tool, maximizes coping skills. Positive support system - Stages of Change Stages of Change:: Action - Psychosocial Test Tool Used:: HANDS Depression Questionnaire - Intervention PS - Interventions: Yes Attend Stress Management Classes, Yes Uses Stress Management Skills, No Referral to Mental Health, No Referral to [facility] Case Management, No Referral to Physician - Education Attended classes for:: Coping techniques, Signs & symptoms of depression, Stress management, Relaxation techniques - Assistive Devices Assistive Devices:: None Patient Health Questionnaire 30-Day Re-eval Assessment 1. Little interest or pleasure in doing things: Not at all 2. Feeling down, depressed, or hopeless: Not at all 3. Trouble falling or staying asleep, or sleeping too much: Not at all 4. Feeling tired or having little energy: Not at all 5. Poor appetite or overeating: Not at all 6. Feeling bad about yourself -- or that you are a failure or have let yourself or your family down: Not at all 7. Trouble concentrating on things, such as reading the newspaper or watching television: Not at all 8. Moving or speaking so slowly that other people could have noticed. Or the opposite - being so fidgety or restless that you have been moving around a lot more than usual: Not at all 9. Thoughts that you would be better off , or of hurting yourself in some way: Not at all How difficult have these problems made it for you to do your work, take care of things at home, or get along with other people?: Not difficult at all Total Score: 0 Self-Efficacy 30-Day Re-eval Assessment We would like to know how confident you are in doing certain activities. Please select your confidence level for:: Select your confidence level for the following using the scale 1-10 where 1 is not at all confident and 10 is totally confident. Your score is the average of all 6 responses. Fatigue: How confident are you that you can keep the fatigue caused by your disease from interfering with the things you want to do? Select Number: 10 Physical Discomfort or Pain: How confident are you that you can keep the physical discomfort or pain of your disease from interfering with the things you want to do? Select Number: 10 Emotional Distress: How confident are you that you can keep the emotional distress caused by your disease from interfering with the things you want to do? Select Number: 10 Other Symptoms or Health Problems: How confident are you that you can keep other symptoms or health problems from interfering with the things you want to do? Select Number: 10 Different Tasks and Activities: How confident are you that you can do the different tasks and activities needed to manage your health condition so as to reduce your need to see a doctor? Select Number: 10 Medication: How confident are you that you can do things other than just taking medication to reduce how much your illness affects your everyday life? Select Number: 10 Total Score:: 10
[2018-09-02 08:11] VITALS: BP 124/74; BP 148/60
== END 2018-09-04 23:59 ==
LOC: CR 14:15
PROVIDERS: Family Provider Family Medicine; PCP Family Medicine; Referring Provider Internal Medicine Cardiovascular Disease; Visit Provider Internal Medicine Cardiovascular Disease
DX: I42.8 Other cardiomyopathies (principal); R06.00 Dyspnea, unspecified
CPT/HCPCS: 93798

== ENCOUNTER 2018-10-02 14:15 | Outpatient (RCR) | payer MEDICARE, OTHER, SELFPAY ==
[2018-07-30 10:56] VITALS: BMI 33.6
[2018-09-05 01:48] VITALS: BP 124/74; BP 148/60
[2018-10-02 08:32] VITALS: BP 162/70; BP 95/58
--- NOTE | 2018-10-02 08:33 | CR.ITP_ITS ---
Exercise - 60-Day Assessment - Visit Date of Eval: 10/02/18 Session #:: 23 - Stages of Change Stages of Change:: Action - Exercise Prescription Mode:: Treadmill, Airdyne, NuStep Frequency (x/week): 3 Duration:: 30-45 MIN METs: 4.5 METS Target Heart Rate:: 105-113 WITH MAX HR 93 - Hypertension Resting Blood Pressure:: 95/58 Peak Exercise Blood Pressure:: 162/70 Medication Changes:: No - Intervention Home Exercise/Activity Goal:: Moderate Exercise 30 min/day x 5 days/wk - Education Goals:: Warm-up, RPE BRANDAN Scale, S/S, Safe Exercise, Self-Monitoring - Exercise Program Goals Exercise Program Goals: Aerobic Activity >30 min Nutrition - 60-Day Assessment - Program Goals Nutrition Program Goals: LDL <70. Total Cholesterol <200. HDL >45. Triglycerides <150. HgbA1C <7%. BMI <25 - Visit Date of Eval: 10/02/18 - Stages of Change Stages of Change:: Action - Lipids Has the patient seen the dietitian?: No - Diabetes Diabetes:: No - Weight Management Weight:: 189 lb - STABLE - Intervention Referral to dietitian:: No Referral to Diabetic Clinic:: No Will attend diet classes:: Yes - Education Attended class for:: Healthy eating Tobacco - Initial Assessment - Program Goals Tobacco Program Goals: Complete smoking cessation. Attend education classes. Improve Knowledge Test score - Learning Barriers Learning Barriers: Vision, Ready to Learn Tobacco - 60-Day Assessment - Program Goals Tobacco Program Goals: Complete smoking cessation. Attend education classes. Improve Knowledge Test score - Stage of Change Stages of Change:: Action - Learning Barriers Learning Barriers: Participates in education - Family Support Do you have family support?: Yes - Tobacco Use Tobacco Use: Non-smoker - Intervention Smoking Cessation Referral:: No Education Schedule Given:: Yes - Education Attended class for:: Coronary artery disease, Risk factors, Sexuality, Medical compliance, Cardiac A&P, Angina signs & symptoms Psychosocial - Initial Assess - Target Goals Target Goals: Assess presence or absence of depression. Using a valid screening tool, maximizes coping skills. Positive support system - Psychosocial Test Tool Used:: HANDS Depression Questionnaire - Assistive Devices Fall Risk Assessed:: Yes Psychosocial - 60-Day Assess - Target Goals Target Goals: Assess presence or absence of depression. Using a valid screening tool, maximizes coping skills. Positive support system - Stages of Change Stages of Change:: Action - Psychosocial Test Tool Used:: HANDS Depression Questionnaire - Intervention PS - Interventions: Yes Attend Stress Management Classes, No Referral to Mental Health, No Referral to [facility] Case Management, No Referral to Physician, No Uses Stress Management Skills - Education Attended classes for:: Coping techniques, Signs & symptoms of depression, Stress management, Relaxation techniques - Patient/Program Goal Preventative Medication(s):: Aspirin, Clopidogrel, Beta nestor, Statin/lipid - Assistive Devices Assistive Devices:: None Fall Risk Assessed:: Yes Patient Health Questionnaire 60-Day Re-eval Assessment 1. Little interest or pleasure in doing things: Not at all 2. Feeling down, depressed, or hopeless: Not at all 3. Trouble falling or staying asleep, or sleeping too much: Not at all 4. Feeling tired or having little energy: Not at all 5. Poor appetite or overeating: Not at all 6. Feeling bad about yourself -- or that you are a failure or have let yourself or your family down: Not at all 7. Trouble concentrating on things, such as reading the newspaper or watching television: Not at all 8. Moving or speaking so slowly that other people could have noticed. Or the opposite - being so fidgety or restless that you have been moving around a lot more than usual: Not at all 9. Thoughts that you would be better off , or of hurting yourself in some way: Not at all Total Score: 0 Self-Efficacy 60-Day Re-eval Assessment We would like to know how confident you are in doing certain activities. Please select your confidence level for:: Select your confidence level for the following using the scale 1-10 where 1 is not at all confident and 10 is totally confident. Your score is the average of all 6 responses. Fatigue: How confident are you that you can keep the fatigue caused by your disease from interfering with the things you want to do? Select Number: 10 Physical Discomfort or Pain: How confident are you that you can keep the physical discomfort or pain of your disease from interfering with the things you want to do? Select Number: 10 Emotional Distress: How confident are you that you can keep the emotional distress caused by your disease from interfering with the things you want to do? Select Number: 10 Other Symptoms or Health Problems: How confident are you that you can keep other symptoms or health problems from interfering with the things you want to do? Select Number: 10 Different Tasks and Activities: How confident are you that you can do the different tasks and activities needed to manage your health condition so as to reduce your need to see a doctor? Select Number: 10 Medication: How confident are you that you can do things other than just taking medication to reduce how much your illness affects your everyday life? Select Number: 10 Total Score:: 10
== END 2018-10-05 23:59 ==
LOC: CR 14:15
PROVIDERS: Family Provider Family Medicine; PCP Family Medicine; Referring Provider Internal Medicine Cardiovascular Disease; Visit Provider Internal Medicine Cardiovascular Disease
DX: I42.8 Other cardiomyopathies (principal); R06.00 Dyspnea, unspecified
CPT/HCPCS: 93798

== ENCOUNTER 2018-11-02 14:15 | Outpatient (RCR) | payer MEDICARE, OTHER, SELFPAY ==
[2018-07-30 10:56] VITALS: BMI 33.6
[2018-10-06 01:12] VITALS: BP 162/70; BP 95/58
--- NOTE | 2018-10-30 09:24 | PCM.CR.ITP ---
General Information - General Information Admitting Diagnosis: chronic systolis HF, cardiomyopathy - Education/Goals Cardiac Rehabilitation Goals: 1. Maintain the individual as the primary focus of care. 2. To improve the patient's quality of life. 3. Identification of cardiac risk factors and provide cardiac risk factor management. 4. Enhance the psychosocial status of the patient. 5. Reconditioning enough to allow the patient to resume customary activities. 6. Control symptoms of cardiac disease Scale for measuring improvement of personal goals: Enter appropriate number in Comments. 2 = Unchanged. 3 = Slightly Better. 4 = Moderate Improvement. 5 = Met my Goal Exercise - 90-Day Assessment - Visit Date of Eval: 10/30/18 Session #:: 33 - Stages of Change Stages of Change:: Action - Exercise Prescription Mode:: NuStep, Arm Ergometer Frequency (x/week): 3 Duration:: 30-45 METs: 4.5 Target Heart Rate:: 105-113 Max HR 111 - Hypertension Resting Blood Pressure:: 124/68 Peak Exercise Blood Pressure:: 146/82 - Intervention Home Exercise/Activity Goal:: Sitting Time <3 hrs/day - Education Goals:: Warm-up, RPE BRANDAN Scale, S/S, Safe Exercise, Self-Monitoring - Exercise Program Goals Exercise Program Goals: Aerobic Activity >30 min, B/P <130/80 Nutrition - 90-Day Assessment - Program Goals Nutrition Program Goals: LDL <70. Total Cholesterol <200. HDL >45. Triglycerides <150. HgbA1C <7%. BMI <25 - Visit Date of Eval: 10/30/18 - Stages of Change Stages of Change:: Action - Lipids Has the patient seen the dietitian?: No - Weight Management Weight:: 86.636 kg - Intervention Referral to dietitian:: No Referral to Diabetic Clinic:: No Will attend diet classes:: Yes - Education Attended class for:: Signs & symptoms of hypoglycemia, Signs & symptoms of hyperglycemia, Relate diabetes to coronary artery disease, Healthy eating Tobacco - Initial Assessment - Program Goals Tobacco Program Goals: Complete smoking cessation. Attend education classes. Improve Knowledge Test score - Learning Barriers Learning Barriers: Vision, Ready to Learn Tobacco - 90-Day Assessment - Program Goals Tobacco Program Goals: Complete smoking cessation. Attend education classes. Improve Knowledge Test score - Stage of Change Stages of Change:: Action - Learning Barriers Learning Barriers: Participates in education - Family Support Do you have family support?: Yes - Tobacco Use Tobacco Use: Non-smoker - Intervention Smoking Cessation Referral:: No Individual Education/Counseling:: No Education Schedule Given:: Yes - Education Attended class for:: Tobacco triggers, Coronary artery disease, Risk factors, Sexuality, Medical compliance, Cardiac A&P, Angina signs & symptoms Psychosocial - 90-Day Assess - Target Goals Target Goals: Assess presence or absence of depression. Using a valid screening tool, maximizes coping skills. Positive support system - Stages of Change Stages of Change:: Action - Psychosocial Test Tool Used:: HANDS Depression Questionnaire - Intervention PS - Interventions: Yes Attend Stress Management Classes, Yes Uses Stress Management Skills, No Referral to Mental Health, No Referral to [facility] Case Management, No Referral to Physician - Education Attended classes for:: Coping techniques, Signs & symptoms of depression, Stress management, Relaxation techniques - Assistive Devices Assistive Devices:: None Fall Risk Assessed:: Yes Patient Health Questionnaire 90-Day Re-eval Assessment 1. Little interest or pleasure in doing things: Not at all 2. Feeling down, depressed, or hopeless: Not at all 3. Trouble falling or staying asleep, or sleeping too much: Not at all 4. Feeling tired or having little energy: Not at all 5. Poor appetite or overeating: Not at all 6. Feeling bad about yourself -- or that you are a failure or have let yourself or your family down: Not at all 7. Trouble concentrating on things, such as reading the newspaper or watching television: Not at all 8. Moving or speaking so slowly that other people could have noticed. Or the opposite - being so fidgety or restless that you have been moving around a lot more than usual: Not at all 9. Thoughts that you would be better off , or of hurting yourself in some way: Not at all How difficult have these problems made it for you to do your work, take care of things at home, or get along with other people?: Not difficult at all Total Score: 0 Self-Efficacy 90-Day Re-eval Assessment We would like to know how confident you are in doing certain activities. Please select your confidence level for:: Select your confidence level for the following using the scale 1-10 where 1 is not at all confident and 10 is totally confident. Your score is the average of all 6 responses. Fatigue: How confident are you that you can keep the fatigue caused by your disease from interfering with the things you want to do? Select Number: 10 Physical Discomfort or Pain: How confident are you that you can keep the physical discomfort or pain of your disease from interfering with the things you want to do? Select Number: 10 Emotional Distress: How confident are you that you can keep the emotional distress caused by your disease from interfering with the things you want to do? Select Number: 10 Other Symptoms or Health Problems: How confident are you that you can keep other symptoms or health problems from interfering with the things you want to do? Select Number: 10 Different Tasks and Activities: How confident are you that you can do the different tasks and activities needed to manage your health condition so as to reduce your need to see a doctor? Select Number: 10 Medication: How confident are you that you can do things other than just taking medication to reduce how much your illness affects your everyday life? Select Number: 10 Total Score:: 10
[2018-10-30 09:29] VITALS: BP 124/68; BP 146/82
== END 2018-11-05 23:59 ==
LOC: CR 14:15
PROVIDERS: Family Provider Family Medicine; PCP Family Medicine; Referring Provider Internal Medicine Cardiovascular Disease; Visit Provider Internal Medicine Cardiovascular Disease
DX: I42.8 Other cardiomyopathies (principal); R06.00 Dyspnea, unspecified
CPT/HCPCS: 93798

== ENCOUNTER → 2018-12-11 07:42 | Outpatient (CLI) | payer MEDICARE, OTHER, SELFPAY ==
[2018-10-20 15:17] VITALS: BMI 34.5
--- NOTE | 2018-12-11 07:44 | ECHODONC_ITS ---
Version 2 Reason For Study: Cardiomyopathy Procedure This was a 2D Doppler, Color Flow transthoracic echocardiogram. Myocardial strain analysis was performed in this exam to aid in the assessment of cardiac function. Exam performed in department. Left Ventricle Normal LV size. Left ventricular systolic function is lower limits of normal. The estimated ejection fraction is 53 %. Stage 1 diastolic dysfunction. No regional wall motion abnormalities noted. Right Ventricle Normal RV size. Normal systolic function. Atria Normal left atrium. Normal right atrium. Mitral Valve Normal mitral valve. Tricuspid Valve Normal tricuspid valve. Aortic Valve Normal aortic valve. Trisinus/trileaflet aortic valve. Pulmonic Valve Normal pulmonic valve. Great Vessels Normal aortic root. The pulmonary artery is normal size. Normal inferior vena cava. Pericardium/Pleural No pericardial effusion. MMode/2D Measurements & Calculations LVIDd: 4.0 cm IVSd: 1.1 cm Ao root diam: 3.6 cm LVIDs: 2.7 cm LVPWd: 1.0 cm RVDd: 3.2 cm FS: 31.8 % LAV(MOD-bp): 36.9 ml EDV(MOD-sp4): 78.6 ml EDV(MOD-sp2): 65.6 ml LAV(MOD-bp) Indexed: 19.9 ml/m2 ESV(MOD-sp4): 37.7 ml EF(MOD-sp2): 52.2 % LAV(MOD-sp2): 46.3 ml EF(MOD-sp4): 52.0 % LAV(MOD-sp4): 30.0 ml SV(MOD-sp4): 40.9 ml SV(MOD-sp2): 34.2 ml LA A4 area: 13.0 cm2 LA dimension(2D): 3.4 cm RA A4 area: 9.9 cm2 Doppler Measurements & Calculations MV E max ad: 65.3 cm/sec Lat Peak E' Ad: 6.7 cm/sec Med Peak E' Ad: 4.8 cm/sec MV A max ad: 85.8 cm/sec E/E' lat: 9.7 E/E' med: 13.7 MV E/A: 0.76 Ao V2 max: 161.4 cm/sec LV V1 max: 92.2 cm/sec PA V2 max: 101.9 cm/sec Ao max P.4 mmHg LV V1 max P.4 mmHg Interpretation Summary Normal LV size. Left ventricular systolic function is lower limits of normal. The estimated ejection fraction is 53 %. Stage 1 diastolic dysfunction. The global longitudinal strain has improved. Compared to previous study, the left ventricular systolic function has improved.. The global longitudinal strain = -19.5 % (normal). The prior global longitudinal strain was -9.6 % . Ordering Physician: Marc Ayoub Referring Physician: Lila Guido Performed By: Yue Bedolla, SANDY
== END ==
PROVIDERS: Family Provider Family Medicine; PCP Family Medicine; Referring Provider Internal Medicine Cardiovascular Disease; Visit Provider Internal Medicine Cardiovascular Disease
DX: I50.22 Chronic systolic (congestive) heart failure (principal); C56.9 Malignant neoplasm of unspecified ovary; C80.0 Disseminated malignant neoplasm, unspecified; R06.00 Dyspnea, unspecified; I42.0 Dilated cardiomyopathy
CPT/HCPCS: 0399T; 93306

== ENCOUNTER 2018-12-28 12:51 | Day surgery (SDC) | payer MEDICARE, OTHER, SELFPAY ==
[2018-10-20 15:17] VITALS: BMI 34.5
--- NOTE | 2018-12-19 09:00 | HP.PCM_ITS ---
History and Physical Date of Admission: 12/28/18 HISTORY AND PHYSICAL ? Juliana Gracia 1950 ? REFERRING PHYSICIAN: ??Lila Guido PA ? CHIEF COMPLAINT: ??Consult (Consult Colonoscopy) ? HPI: The patient is a 68 year old female referred for endoscopy. ?Juliana recently?. Patient denies any change in bowel habits, weight changes, blood in stools, black tarry stools or abdominal pain.??NOTES a?family history of sister with tongue cancer, no history of tobacco use.??The patient notes no upper GI complaints?currently. Juliana?has not?undergone prior endoscopy. ? ? Patient's past medical history is significant for hypertension, hyperlipidemia, chronic kidney disease, type II diabetes mellitus, congestive heart failure, non-ischemic cardiomyopathy, ovarian cancer, renal cell carcinoma. ?Patient underwent partial colectomy in 2016 at time her ovarian mass was removed. ? Patient notes that she experienced cardiac complications following chemotherapy including a large amount of fluid around the heart, was treated by Dr. Ayoub for this and notes she has had recent cardiac testing. ?Notes she has been feeling much better in the last few months, denies any chest discomfort or shortness of breath currently. ?Denies problems with sedation in the past. ? ? PAST?MEDICAL?HISTORY PAST MEDICAL HISTORY Diagnosis Date ? CKD (chronic kidney disease) stage 3, GFR 30-59 ml/min (HCC) ? ? DM type 2 (diabetes mellitus, type 2) ([facility]) ? ? Essential hypertension, benign ? ? Hydronephrosis ? ? Hyperlipidemia ? ? Obesity, unspecified ? ? Obstructive uropathy ? ? Ovarian cancer (HCC) 2015 ? Positive colorectal cancer screening using Cologuard test ? ? ? PAST?SURGICAL?HISTORY PAST SURGICAL HISTORY Procedure Laterality Date ? APPENDECTOMY ? 2016 ? CARPAL TUNNEL RIGHT WRIST ? 1989 ? bilateral ? HEART CATHETERIZATION ? 10/2018 ? HYSTERECTOMY HX ? 10/2016 ? complete with ovarian mass removal, partial colectomy ? LIGATE FALLOPIAN TUBE ? 1988 ? NEPHROSTOGRAM TUBE CHANGE ? 11/2018 ? PAST SURGICAL HISTORY OF ? ? ? removal left breast mole ? PAST SURGICAL HISTORY OF ? 1999 ? removal lipoma on posterior neck ? ? CURRENT?MEDICATIONS ? Current Outpatient Medications: sacubitril-valsartan (ENTRESTO) 24-26 mg tablet Take 1 tablet by mouth twice daily. phenazopyridine (PYRIDIUM, GERIDIUM) 200 mg tablet Take 1 tablet by mouth three times daily as needed (dysuria). glipiZIDE (GLUCOTROL XL) 5 mg 24 hr tablet 5 mg once daily. potassium chloride 20 mEq TbER once daily. furosemide (LASIX) 40 mg tablet Take 1 tablet by mouth twice daily. carvedilol (COREG) 6.25 mg tablet Take 1 tablet by mouth twice daily. (Patient taking differently: Take 25 mg by mouth twice daily. ) magnesium oxide (MAG-OX) 400 mg tablet Take 1 tablet by mouth twice daily. simvastatin (ZOCOR) 20 mg tablet Take 20 mg by mouth daily at bedtime. metFORMIN ER (GLUCOPHAGE XR) 500 mg 24 hr tablet Take 2 tablets by mouth twice daily. acetaminophen (TYLENOL) 325 mg tablet Take 2 tablets by mouth every 6 hours. peg 3350-Electrolytes (GOLYTELY) 236-22.74-6.74 -5.86 gram suspension Take 4,000 mL by mouth one time only for 1 dose. ondansetron (ZOFRAN) 4 mg tablet Take 1 tablet by mouth every 8 hours as needed for Nausea/Vomiting. (Patient not taking: Reported on 12/10/2018 ) ? No current facility-administered medications for this visit.? ? ALLERGIES:?Lisinopril ? PERSONAL HISTORY:? 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 control/protection: Surgical ??Other Topics ?Concerns: ?Not on file ??Social History Narrative ?Not on file ? FAMILY HISTORY:? FAMILY?HISTORY FAMILY HISTORY Problem Relation Age of Onset ? Diabetes Mother ? ? Heart Mother ? ? Heart Father ?CHF ? Diabetes Sister ? ? other (meningitis) Son 40 ? Cancer Sister 45 ?Tongue cancer, no hisory of tobaco use ? other (Colorectal polyps) Sister 55 ? REVIEW OF SYMPTOMS: ??The review of systems data was entered by the nurse and reviewed by me ? Nursing Notes: Puma Gross DAIRY QUALITY ASSURANCE OFFICER ?12/11/2018 ?1:27 PM ?Signed REVIEW OF SYSTEMS: ?General:???The patient denies fatigue, denies weight loss, denies weight gain, denies feeling hot, and denies feelings of cold. ?Eyes: ?The patient denies glaucoma, denies eye injury/surgery, wears glasses or contacts. ?Ear/Nose/Throat: ?The patient denies allergies, denies hayfever, denies ear infections, and denies bloody noses. ?Cardiovascular: ?The patient denies chest pain, NOTES heart disease, NOTES high blood pressure,denies cardiac stent, denies prior heart attack, denies irregular heart beat, NOTES high cholesterol, ?denies poor circulation, denies heart failure, other cardiac issues, denies claudication, denies cold feet, denies peripheral arterial stent. ?Respiratory: ?The patient denies tuberculosis, denies pneumonia, denies f requent cough, denies pulmonary embolism, NOTES shortness of breath, and denies coughing up blood. ?Gastrointestinal: ?The patient denies difficulty swallowing, denies acid reflux, denies ulcers, denies vomiting, denies jaundice/hepatitis, denies gallbladder problems, denies black or tarry stools, denies hemorrhoids, denies bleeding from rectum, denies diverticulitis, denies constipation, denies diarrhea, denies loss of stool control, and denies hernias. ?Kidney/Bladder: ?The patient denies kidney stones, denies urine infections, and denies bloody urine. ?Skin: ?The patient denies a history of skin cancer, denies bleeding/changing moles, and denies a history of skin rash. ?Neurologic: ?The patient denies a history of epilepsy/convulsions, denies headaches, denies head/spinal injuries, and denies stroke/TIA. ?Psychiatric: ?The patient denies psychiatric medications, denies depression, and denies voices, denies substance abuse. ?Endocrine: ?The patient denies thyroid disorders, NOTES diabetes, and denies hormonal problems. ?Hematologic: ?The patient denies a history of bruising, denies bleeding, and denies anemia, denies blood clots. ?Infections: ?The patient denies a history of measles and mumps, denies rheumatic fever, and denies sexually transmitted diseases. ?Musculoskeletal: ?The patient denies back pain/injury, denies back problems, denies sciatica, denies knee/foot trouble, denies arthritis, or denies gout. ? ? When was patient's last Mammogram screening? N/A ? ?Last Colonoscopy: ?n/A ? Puma Gross LPN ? PHYSICAL EXAMINATION: ? General: ?The patient is 68 year old female, well nourished, well hydrated in no acute distress. ?The patient is oriented to time, place, and person. ? VITALS:?Blood pressure 116/68, pulse 89, temperature 36.9 ?C (98.5 ?F), height 154.9 cm (5' 1), weight 87.6 kg (193 lb 3.2 oz), SpO2 95 %.?Body mass index is 36.5 kg/m?.? ? HEENT: ?Normal cephalic, ataumatic, pupils are equally round, sclera are anict rk, mucous membranes are moist, oropharynx is clear. ?Neck has no masses, asymmetry or lymphadenopathy. ? ? Respiratory: ?Clear to auscultation and percussion. ?Normal respiratory excursion and pattern. ? Cardiac: ?Examination is regular rate and rhythm. ?Normal S1/S2 ? Abdominal exam: ?Soft, nontender, ?with no palpable masses. ?No hepatosplenomegaly. ?No palpable hernias. ? Extremities: ?no clubbing, cyanosis or edema. ?No adenopathy. ? LABORATORY VALUES: As Noted ? RADIOLOGIC STUDIES: ?As Noted ? Assessment ? IMPRESSION:?positive cologuard test. ?Family history of GI malignancy. ?Personal history of ovarian and renal carcinoma. ?Recommend colonoscopy and EGD ? PLAN: ?I have reviewed my findings with the surgeon. ?Will plan for upper and lower?endoscopy. ??We discussed the risks and benefits of the planned endoscopy. ?I have informed the patient that complications can occur including failure to complete the endoscopy and perforation. ?The patient had the opportunity to ask questions concerning the planned endoscopy. ?My staff has also explained the procedure to the patient in understandable terms and has given the patient printed material concerning the procedure. ?The patient freely consents to surgery. ? I plan to use?Golytely?bowel preparation ? Request for cardiac clearance faxed to Dr. Ayoub's office ? The patient has medical comorbidities for which we will plan for the procedure to be performed under Monitored Anesthetic Care. ? ? Diagnoses:?(R19.5) Positive colorectal cancer screening using Cologuard test ?(primary encounter diagnosis) (Z80.0) Family history of GI malignancy (Z85.43) Personal history of ovarian cancer (Z85.528) Personal history of renal cell carcinoma ? ? Belné Horner PA-C
--- NOTE | 2018-12-28 | IMM_PTH ---
PATIENT: Peg DOW LOC: EN U#:[id number] AGE/SX: 68/F ROOM: RE12/28/[address]: Dr. Jose Marr MD : 1950 BED: DIS: 12/28/2018 SPEC #: [id number] RECD: 12/30/18 14:03 STATUS: BRODERICK REDk #: [id number] KATY: 12/28/18 00:[address]: Jose Marr DEPT: IMMUNOHISTOCHEMISTRY RECD BY: Janell Hernandez ENTERED: 12/30/18 14:03 SP TYPE: IMMUNO OTHR DR: Lila Guido PA-C Tissues: A - Stomach, NOS Procedures: H Pylori (initial) PHYSICIAN & INSTITUTION [place] [id number] SPECIMEN INFORMATION: Tissue Source: A - Antral biopsy Clinical Info: Positive Cologuard, family history colon cancer Specimen Number: [id number] CPT code: 17465 METHODOLOGY: Deparaffinized sections of prefer/formalin-fixed tissue or PAP/DQ stained slides are incubated with monoclonal/polyclonal antibodies/oligonucleotide probes. Localization is made via biotin free immunoperoxidase method. Appropriate controls are performed and reacted as expected. Results on target cell population are indicated in the following table: RESULTS: ANTIBODY / CLONE RESULT Block A H Pylori (polyclonal) negative These tests were developed and their performance characteristics determined by [facility]. They may not have been cleared or approved by the U.S. Food and Drug Administration. The FDA has determined that such clearance or approval is not necessary. INTERPRETATION: A. Antral biopsy: Negative for Helicobacter pylori organisms. SJ:arsen 12/31/18
[2018-12-28 13:26] VITALS: BP 159/45; PULSE 42; RESP 18; TEMP 36.9; O2SAT 99; BMI 35.4
[2018-12-28 13:41] LABS: Bedside Glucose 127 mg/dL (70-110)
--- NOTE | 2018-12-28 13:45 | EGD_PTH ---
PATIENT: Peg DOW LOC: EN U#:[id number] AGE/SX: 68/F ROOM: RE12/28/[address]: Dr. Jose Marr MD : 1950 BED: DIS: 12/28/2018 SPEC #: [id number] RECD: 12/28/18 14:29 STATUS: BRODERICK CHRISTINA #: [id number] KATY: 12/28/18 13:[address]: Jose Marr DEPT: SURGICAL PATHOLOGY RECD BY: Nisreen Benito ENTERED: 12/29/18 11:17 SP TYPE: EGD BIOPSY OT DR: Lila Guido PA-C Tissues: A - Gastric mucous membrane B - POLYP Procedures: Surgery Specimen Level IV HEADER OPERATION: Colonoscopy, EGD ([facility] [place] PRE-OP DIAGNOSIS: Positive Cologuard, family history colon cancer TISSUE SUBMITTED: A. Antral biopsy for pathology, B. Rectal polyp MICROSCOPIC DIAGNOSIS A. Antral biopsy: Mild gastritis. See microscopic description and comment. B. Rectal polyp, biopsy: Tubular adenoma. SJ:arsen 12/30/18 COMMENT A. The results of immunohistochemistry for Helicobacter pylori will be reported separately ([id number]). Case has been reviewed in consultation with Dr. Richard who concurs with the above diagnosis. IDC:AM MICROSCOPIC DESCRIPTION Slides are reviewed. A. The specimen shows fragments of gastric mucosa with chronic inflammatory cell infiltrates in the lamina propria consisting of lymphocytes and plasma cells, consistent with mild chronic gastritis. GROSS DESCRIPTION A - Received in fixative is one container labeled with the patient's name and designated antral biopsy. The specimen consists of one irregular fragment of light servin soft tissue that measures 0.5 x 0.2 x 0.1 cm. The specimen is totally submitted in one cassette. B - Received in fixative is one container labeled with the patient's name and designated rectal polyp. The specimen consists of one irregular fragment of light servin soft tissue that measures 0.8 x 0.5 x 0.5 cm. This piece is bisected. Also present in the container are two fragments of servin soft tissue measuring in aggregate 0.4 x 0.2 x 0.1 cm. The entire specimen is submitted in one cassette. / ZAIRA:arsen 12/29/18 TC:1 CPT: 90890 x2
[2018-12-28 14:15] VITALS: BP 102/45; BP 159/45; PULSE 81; RESP 16; TEMP 37.9; O2SAT 95
--- NOTE | 2018-12-28 14:15 | OP.ENDO_ITS ---
12/28/2018 Lila Guido Re : Upper GI endoscopy procedure for Juliana Guido This procedure was performed on Friday, December 28, 2018. My impressions and recommendations are as follows: Impressions : - Normal examined jejunum. - Normal examined duodenum. - Gastritis. Biopsied. - Normal esophagus. Recommendations : - Await pathology results. - Return to my office in 1 week. - Continue present medications. My findings are described in the full procedure note, which is enclosed. If I can be of further assistance, please feel free to contact me at Doctor phone number(s): , Work: . Sincerely, Jose Marr MD 12/28/2018 2:14:41 PM This report has been signed electronically.
--- NOTE | 2018-12-28 14:17 | OP.ENDO_ITS ---
12/28/2018 Lila Guido Re : Colonoscopy procedure for Juliana Guido This procedure was performed on Friday, December 28, 2018. My impressions and recommendations are as follows: Impressions : - Patent end-to-end colo-rectal anastomosis, characterized by healthy appearing mucosa and an intact staple line. - One 11 mm polyp in the rectum, removed with a hot snare. Resected and retrieved. - The distal rectum and anal verge are normal on retroflexion view. Recommendations : - Discharge patient to home. - Resume previous diet. - Continue present medications. - Repeat colonoscopy for surveillance based on pathology results. - Return to my office in 1 week. My findings are described in the full procedure note, which is enclosed. If I can be of further assistance, please feel free to contact me at Doctor phone number(s): , Work: . Sincerely, Jose Marr MD 12/28/2018 2:17:17 PM This report has been signed electronically.
[2018-12-28 14:20] VITALS: BP 106/54; BP 159/45; PULSE 81; RESP 18; O2SAT 95
[2018-12-28 14:25] VITALS: BP 120/55; BP 159/45; PULSE 81; RESP 18; O2SAT 94
[2018-12-28 14:31] VITALS: BP 123/57; BP 159/45; PULSE 81; RESP 18; TEMP 37.9; O2SAT 95
[2018-12-28 14:48] VITALS: BP 159/45
== END 2018-12-28 14:52 | disposition home or self-care (01) ==
LOC: EN 12:51 → AC 12:52
PROVIDERS: Family Provider Family Medicine; PCP Family Medicine; Referring Provider Surgery; Visit Provider Surgery
PROC: 0DJD8ZZ Inspection of Lower Intestinal Tract, Via Natural or Artificial Opening Endoscopic (ICD-10-PCS; CPT 45378; principal; 2018-12-28 13:40)
DX: K29.70 Gastritis, unspecified, without bleeding (principal); R19.5 Other fecal abnormalities; K62.1 Rectal polyp; E11.9 Type 2 diabetes mellitus without complications; E78.5 Hyperlipidemia, unspecified; I12.9 Hypertensive chronic kidney disease with stage 1 through stage 4 chronic kidney disease, or unspecified chronic kidney disease; N18.3 Chronic kidney disease, stage 3 (moderate); Z80.0 Family history of malignant neoplasm of digestive organs; Z85.43 Personal history of malignant neoplasm of ovary; Z85.528 Personal history of other malignant neoplasm of kidney; Z90.49 Acquired absence of other specified parts of digestive tract; I42.9 Cardiomyopathy, unspecified
CPT/HCPCS: 43239; 45385; 82962; 88305; 88342; J7120; J2405

== ENCOUNTER → 2019-11-04 12:36 | Outpatient (CLI) | payer MEDICARE, OTHER, SELFPAY ==
[2019-07-06 10:25] VITALS: BMI 35.8
--- NOTE | 2019-11-04 12:37 | ECHODONC_ITS ---
Version 2 Reason For Study: CARDIOMYOPATHY Procedure This was a 2D Doppler, Color Flow transthoracic echocardiogram. Myocardial strain analysis was performed in this exam to aid in the assessment of cardiac function. Exam performed in department. Left Ventricle Normal LV size. Left ventricular systolic function is lower limits of normal. The estimated ejection fraction is 51 %. Stage 1 diastolic dysfunction. There is borderline global hypokinesis of the left ventricle. Right Ventricle Normal RV size. Normal systolic function. Atria Normal left atrium. Normal right atrium. Mitral Valve Normal mitral valve. Tricuspid Valve Normal tricuspid valve. Mild tricuspid valve insufficiency. Pulmonary artery systolic pressure is 26 mmHg. Aortic Valve Normal aortic valve. Pulmonic Valve Normal pulmonic valve. Great Vessels Normal aortic root. The pulmonary artery is normal size. Normal inferior vena cava. Pericardium/Pleural No pericardial effusion. MMode/2D Measurements & Calculations LVIDd: 4.2 cm IVSd: 1.2 cm Ao root diam: 3.3 cm LVIDs: 2.9 cm LVPWd: 0.84 cm RVDd: 3.3 cm FS: 30.6 % LAV(MOD-bp): 48.0 ml LA A4 area: 16.7 cm2 LA dimension(2D): 3.7 cm LAV(MOD-bp) Indexed: 25.7 ml/m2 LAV(MOD-sp2): 47.5 ml LAV(MOD-sp4): 45.4 ml RA A4 area: 12.4 cm2 Time Measurements MV dec time: 0.16 sec Doppler Measurements & Calculations MV E max ad: 68.8 cm/sec Lat Peak E' Ad: 4.6 cm/sec Med Peak E' Ad: 4.5 cm/sec MV A max ad: 103.8 cm/sec E/E' lat: 14.8 E/E' med: 15.5 MV E/A: 0.66 Ao V2 max: 147.9 cm/sec LV V1 max: 89.5 cm/sec PA V2 max: 82.0 cm/sec Ao max P.8 mmHg LV V1 max P.2 mmHg TR max ad: 234.7 cm/sec TR max P.0 mmHg Interpretation Summary Normal LV size. Left ventricular systolic function is lower limits of normal. The estimated ejection fraction is 51 %. Stage 1 diastolic dysfunction. The global longitudinal strain = -19.3 % (normal). Compared to prior study, there is no significant change. Ordering Physician: Marc Ayoub Referring Physician: Lila Guido Performed By: Annamaria Cuevas, SANDY, RVT
== END ==
PROVIDERS: Family Provider Family Medicine; PCP Family Medicine; Referring Provider Internal Medicine Cardiovascular Disease; Visit Provider Internal Medicine Cardiovascular Disease
DX: R42 Dizziness and giddiness (principal); I42.7 Cardiomyopathy due to drug and external agent; T45.1X5A Adverse effect of antineoplastic and immunosuppressive drugs, initial encounter; I10 Essential (primary) hypertension; I50.22 Chronic systolic (congestive) heart failure; C56.9 Malignant neoplasm of unspecified ovary; C80.0 Disseminated malignant neoplasm, unspecified
CPT/HCPCS: 93306; 93356

== ENCOUNTER → 2020-05-10 11:10 | Outpatient (CLI) | payer MEDICARE, OTHER, SELFPAY ==
[2019-12-14 08:57] VITALS: BMI 35.1
[2020-05-10 12:29] LABS: Protein, Urine (Random) 85.1 mg/dL (<11.9); Protein:Creat Ratio 959 mg/g CRE (0-200)
== END ==
PROVIDERS: PCP Family Medicine; Visit Provider Internal Medicine Nephrology
DX: E11.22 Type 2 diabetes mellitus with diabetic chronic kidney disease (principal)
CPT/HCPCS: 82570; 84156

== ENCOUNTER → 2020-05-18 14:44 | Outpatient (CLI) | payer MEDICARE, OTHER, SELFPAY ==
[2019-12-14 08:57] VITALS: BMI 35.1
--- NOTE | 2020-05-18 14:46 | VDLE_ITS ---
Reason For Study: Swelling in left leg only Procedure LEFT Exam performed in department. GSV is normal. A preliminary report was called and/or faxed CFV is compressible, spontaneous, phasic, to Anitra. competent, and demonstrates normal augmentation. FV is compressible, spontaneous, phasic, competent and demonstrates normal augmentation. POP V is compressible, spontaneous, phasic, competent and demonstrates normal augmentation. T/P Trunk is compressible. PTV is compressible. LT PerV is compressible. Interpretation Summary There is no evidence of left lower extremity deep vein thrombosis. Left great saphenous vein appears patent and compressible segmentally. Ordering Physician: Marc Ayoub Referring Physician: Lila Guido Performed By: Dariana Gonzales RVT and Student
== END ==
PROVIDERS: PCP Family Medicine; Referring Provider Internal Medicine Cardiovascular Disease; Visit Provider Internal Medicine Cardiovascular Disease
DX: M79.662 Pain in left lower leg (principal); M79.89 Other specified soft tissue disorders
CPT/HCPCS: 93971

== ENCOUNTER 2020-07-01 17:59 | Inpatient (IN) | payer MEDICARE, OTHER, SELFPAY ==
[2019-12-14 08:57] VITALS: BMI 35.1
[2020-07-01 18:00] VITALS: BP 101/43; PULSE 94; RESP 18; TEMP 36.2; O2SAT 99; BMI 32.1
[2020-07-01 19:04] VITALS: BP 92/41; PULSE 97; RESP 18; TEMP 36.9; O2SAT 95
--- NOTE | 2020-07-01 19:32 | ED.DCSUM_ITS ---
- ER Visit Summary Date of Service: 07/01/20 Chief Complaint: Abdominal pain History of Present Illness: The patient is a 70 F who sees [facility] and is in the process of establishing with Dr. Michael. She has a history of ovarian cancer with metastases that began in 2015 and she is had multiple recurrences. She reports that she is currently not getting treatment for this. Patient reports that she has abdominal pain began abruptly at 10:00 this morning. Is a sharp pain is 10 of 10 severity. Is worsened by nothing and relieved by nothing. She is been nausea vomit 3 times. No blood in her emesis. She has had no diarrhea. She reports that she is not passing flatus. She denies any dysuria or frequency. Patient complains of generalized weakness and chills. She denies any other complaints. Physical Examination: Vitals: Stable. Afebrile. General: Well-nourished and well-developed. Head: Normocephalic atraumatic. Neck: Supple, no lymphadenopathy. No JVD. Nontender. Cardiovascular: Regular rate and rhythm. No murmurs. Respiratory: No respiratory distress. Clear to auscultation bilaterally. Abdominal: Soft, moderate diffuse tenderness palpation with multiple palpable masses, distended, hypoactive bowel sounds. No guarding, rebound, or peritoneal signs. Back: Nontender. Extremities: Nontender, no edema. Skin: Normal color, no rash. Neurologic: Alert and oriented ?3. Cranial nerves II through XII are intact. Normal strength and sensation. Psych: Normal affect. Test Results: Chart review on clinic seeing shows that the patient had a CT/PET on June 27 that shows markedly hypermetabolic mural wall thickening of the terminal ileum and cecum in the right lower quadrant suggestive of serial implants. Multiple hypermetabolic abdominal, retroperitoneal, and pelvic lymphadenopathy consistent with metastatic disease. 4.5 x 4.5 cm hypermetabolic right retroperitoneal soft tissue mass consistent with metastatic disease. 1.5 x 1.0 cm hypermetabolic left lower quadrant retroperitoneal soft tissue nodule concerning for metastatic disease.. In abdominal ascites since June 02 concerning for malignant ascites. CBC shows an H&H 10.4 30.7, segmented for 32, lymphocytes of 7. Chem-7 shows a sodium 135, potassium 3.0, chloride 97, glucose of 204, creatinine 1.54. Of note her creatinine was 1.09 4 days ago. LFTs show total bili of 3.6 (3.04 days ago), alk phos of 712, ALT of 143, AST of 107. Lipase is 162. Lactic acid is 2.3. Clinical Impression(s) from Imaging Studies Abdomen/Pelvis CT 07/01/20 20:12 IMPRESSION: 1. Extensive loculated abdominal ascites, possibly malignant. 2. No intestinal obstruction, presumed peritoneal adhesions. Questionable lower pelvic soft tissue versus collapsed adhesed loops of bowel. 3. Severe biliary dilation, probably obstruction. Possibility of pancreatic lesion is present versus intraductal abnormality. Electronically Signed: Jessica Iglesias, at 20:52 EDT Tel , Service support , Emergency Department Course and Treatment: Patient had an IV placed. She was given a liter bolus of normal saline. She was given morphine and Zofran IV. She is resting more comfortably. Treatment Plan: I had a prolonged discussion with the patient about the results of her CT. I do not think that there is anything that would be amenable to surgical reduction. I also suspect that this is to the point where chemo is not going to be curative either. She will be admitted to the hospital for hydration and pain control. She was discussed with Dr. Duron. Disposition: Admitted in improved condition. Impression: 1. Metastatic ovarian cancer. 2. Acute kidney injury. 3. Lactic acidosis. 4. Hypokalemia. This note was generated with [employer] dictation software. It may contain incorrect words, spelling, and punctuation that were not noted in review of the chart prior to signing ED Disposition - Plan for ED Patient: Referrals: Lila Guido PABelindaC [Primary Care Provider] -
[2020-07-01] MEDS: 0.9% Normal Saline 1,000 ML 125 ML IV (19:39)
[2020-07-01] MEDS: Morphine 4 MG/ML Syringe IV (19:40)
[2020-07-01] MEDS: Ondansetron 4 MG/2 ML Vial IV (19:40)
[2020-07-01 19:47] LABS: Absolute Lymphocyte Count 0.53 X10^3/uL (0.83-4.51); Absolute Neutrophil Count 6.1 X10^3/uL (2.0-7.7); Basophil# 0.03 X10^3/uL; Basophil% 0.4 % (0-1); Eosinophil# 0.02 X10^3/uL; Eosinophils% 0.3 % (0-5); Hematocrit 32.7 % (37-47); Hemoglobin 10.4 g/dL (12.0-15.0); Lymphocyte # 0.53 X10^3/ul (4.0); Lymphocyte % 7.1 % (19-41); Mean Corp Hgb Conc 31.8 g/dL (32-36); Mean Corpuscular Hgb 33.5 pg (27.0-32.0); Mean Corpuscular Volume 105.5 fL (81-99); Mean Platelet Vol. 10.6 fl (6.2-12.0); Monocyte# 0.72 X10^3/uL; Monocyte% 9.7 % (0-10); NRBC Flagged by Analyzer 0.3 % (0-5); Neutrophil # 6.09 X10^3/uL (2.7-7.7); Neutrophil % 81.8 % (47-70); POSITIVE DIFFERENTIAL YES; POSITIVE MORPHOLOGY YES; Platelet Count 219 K/mm3 (150-450); RBC Distribution Width CV 18.1 % (11.6-14.6); White Blood Count 7.4 K/mm3 (4.4-11.0)
[2020-07-01 20:00] VITALS: BP 93/58; PULSE 98; RESP 18; TEMP 37; O2SAT 100
[2020-07-01 20:05] LABS: ALB/GLOB Ratio 0.6 RATIO (0.9-2.4); AST(SGOT) 107 U/L (15-37); Alanine Aminotransfer ALT/SGPT 143 U/L (13-56); Albumin, Serum 2.7 g/dL (3.2-5.0); Alkaline Phosphatase 712 U/L (45-117); Anion Gap 11 (5-15); BUN 16 mg/dL (7-18); BUN/Creat Ratio 10.4 RATIO (10-20); Calcium,Total 9.2 mg/dL (8.5-10.1); Chloride 97 mmol/L (98-107); Creatinine, Serum 1.54 mg/dL (0.55-1.02); EST Glomerular Filtration Rate 35 mL/min (>60); Est Glom Filt Rate - Afr Amer 43 mL/min (>60); Estimated Creatinine Clearance 25.28 ml/min; Globulin 4.3 g/dL (2.2-4.2); Glucose 204 mg/dL (74-106); Lipase 162 U/L (73-393); Sodium Level 135 mmol/L (136-145)
--- NOTE | 2020-07-01 20:12 | CT_ITS ---
STUDY: CT ABDOMEN AND PELVIS WITH CONTRAST REASON FOR EXAM: Female, 70 years old. Lower abdominal pain nausea, history of ovarian cancer RADIATION DOSAGE (If Supplied By Facility): CTDIvol = ( 18.17 ) mGy, DLP = ( 1018.35 ) mGycm TECHNIQUE: CT images were obtained from the dome of the diaphragm to the symphysis pubis without oral contrast. IV 100mL Isovue-370 was administered. Sagittal and coronal images were reconstructed. Individualized dose optimization techniques were used for this CT. COMPARISON: None. FINDINGS: Lung bases are clear. Inferior mediastinal structures are normal. There is moderate peripheral, moderate to severe central and severe extrahepatic biliary dilation. Common bile duct tapers rapidly within the pancreatic head. Pancreas is heterogeneous with multiple small ill-defined hypodensities. There are no hepatic solid lesions. Portal vein is patent. Gallbladder is distended. Adrenals Mateo spleen and kidneys are normal. Right kidney is decompressed with a stent. Bladder is normal. There is no intestinal obstruction. There is large amount of intra-abdominal fluid predominantly confined to the anterior and lateral abdomen. There is grouped appearance of bowel loops, possibly adhesions. There is ill-defined enhancing soft tissue in the lower pelvis, possibly matted loops of bowel. Detection of a separate superimposed soft tissue is difficult. There is thickening of peritoneal margins along the fluid collection, possibly chronic loculations. The uterus and adnexa are removed. There is a surgical suture line in the rectosigmoid junction without soft tissue mass or obstruction. CT/Abdomen/Pelvis W IV Cont ONLY IMPRESSION: 1. Extensive loculated abdominal ascites, possibly malignant. 2. No intestinal obstruction, presumed peritoneal adhesions. Questionable lower pelvic soft tissue versus collapsed adhesed loops of bowel. 3. Severe biliary dilation, probably obstruction. Possibility of pancreatic lesion is present versus intraductal abnormality. Electronically Signed: Jessica Iglesias, at 20:52 EDT Tel , Service support ,
[2020-07-01 20:20] LABS: Differential Indicated SCAN CRITERIA MET
[2020-07-01 20:21] LABS: Anisocytosis 1+; Macrocytosis 2+; Platelet Estimate ADEQUATE (ADEQ); Red Cell Morphology N CHROM NORMAL (NORM C&C)
[2020-07-01 20:49] LABS: Lactic Acid 2.3 mmol/L (0.4-1.9)
[2020-07-01 21:00] VITALS: BP 107/27; PULSE 102; RESP 16; TEMP 37.2; O2SAT 100
[2020-07-01] MEDS: 0.9% Normal Saline 1,000 ML 999 ML IV (21:14)
[2020-07-01 22:00] VITALS: BP 108/47; PULSE 102; RESP 18; TEMP 37.2; O2SAT 96
--- NOTE | 2020-07-01 22:14 | PCM.HP.STD ---
History of Present Illness Date of Admission: 07/01/20 Chief Complaint: Abdominal pain The patient is a 70 year old F with a PMH as below who presents to the hospital with abdominal pain secondary to her stage IV ovarian cancer. She does have abdominal ascites as well as probable obstruction of her biliary tree which is also chronic. She does have chronically elevated LFTs that are not more elevated today than normal. She said that she started having abdominal pain this morning and it was not relieved by anything. She also had multiple episodes of emesis and this was not managed with her Zofran either, her creatinine on admission was 1.54, her baseline is 1. Also on admission her lactic acid was elevated to 2.3. She has not had any chemotherapy since last year however she does take an oral pill every day twice a day. She says that her cancer has progressed even while on chemotherapy and that she has already discussed the possibility of needing to proceed with hospice with her . CT scan in the ER was not any different than her previous CT scan June 27. Hypermetabolic mural wall thickening of the right lower quadrant suggestive of serial. She also has abdominal and retroperitoneal pelvic lymphadenopathy. She plans to follow-up with Dr. Michael on Friday. Past Medical History Past Medical History (Chronic Problems): Chronic Problems (Last Reviewed 07/06/19 @ 15:[address] 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) I42.7, T45.1X5A Essential (primary) hypertension (Chronic) I10 Chronic systolic (congestive) heart failure (Chronic) I50.22 Primary cancer of ovary with widespread metastatic disease (Chronic) C56.9, C80.0 Diabetes mellitus type II, controlled, with no complications E11.9 Cardiomyopathy due to chemotherapy I42.7, T45.1X5A Dyspnea (Inactive) R06.00 Allergies lisinopril Allergy (Verified 07/01/20 18:05) Other Home Medications: Ambulatory Orders Medication Instructions Recorded Simvastatin 20 mg PO QHS 06/19/18 olaparib 100 mg tablet 200 mg PO BID tab 02/23/19 glipizide 5 mg tablet 5 mg PO DAILY 12/14/19 magnesium oxide 400 mg (241.3 mg 400 mg PO BID #180 tab 04/04/20 magnesium) tablet Furosemide 40 mg PO BID 07/01/20 Ondansetron [Zofran Odt] 4 mg PO Q8H PRN PRN 07/01/20 Potassium Chloride [K-Dur] 20 meq PO DAILY 07/01/20 Sacubitril/Valsartan 24/26 mg 1 ea PO BID 07/01/20 [Entresto 24 mg-26 mg Tablet] Surgical History: Surgical History (Last Reviewed 07/06/19 @ 15:[address] Marc Ayoub MD) History of hysterectomy for cancer Z90.710, C80.1 History of left heart catheterization Onset Date: 06/21/18 Z98.890 Surgical History: - - Lipoma removed from her neck. Smoking Status: Never smoker Alcohol: None Drugs: None - *Family History Maternal Family History: Family History (Last Reviewed 07/06/19 @ 15:[address] Marc Ayoub MD) Mother Heart abnormality Sister Cancer Review of Systems Constitutional: Denies: Chills, Fever, Weight Change HEENT: Denies: Head Aches, Sinus Congestion, Sinus Drainage Cardiovascular: Denies: Chest Pain, Palpitations Respiratory: Denies: Cough, Shortness of breath at rest, Sputum production Gastrointestinal: Reports: Abdominal Pain, Nausea, Vomiting Genitourinary: Denies: Dysuria Musculoskeletal: Denies: Joint Pain, Joint Tenderness Skin: Denies: Rash, Wounds Neurological: Denies: Numbness, Tingling, Focal weakness Psychiatric: Denies: Anxiety, Depression Hematologic/ Lymphatic: Denies: Easy Bruising, Easy Bleeding VTE Information - Inpt Only VTE Present on Admission: No - Physical Exam Vitals/I&O's: Vital Signs Temp Pulse Resp BP Pulse Ox 98.9 F 102 H 18 108/47 L 96 07/01/20 22:00 07/01/20 22:00 07/01/20 22:00 07/01/20 22:00 07/01/20 22:00 Oxygen Delivery Method Room Air Weight: 170 lb Body Mass Index (BMI) 32.1 General: Alert, Oriented x3, Cooperative, No apparent distress HEENT: Atraumatic, PERRLA, EOMI, Normocephalic Oral: Moist Mucosa Neck: Supple, No JVD Lungs: Clear to auscultation, Normal air movement, No rhonchi, No wheeze, No rales Cardiovascular: Regular rate, Regular Rhythm, Normal S1, Normal S2, No murmurs Abdomen: Soft, No Hepato-splenomegaly, Distended, Tender - Mild and diffuse Extremities: No edema, Capillary Refill Less than 3 Seconds Skin: No rashes, No breakdown Neurological: Neuro grossly intact, Sensory exam intact to light touch and pain Psych/Mental Status: Normal Affect, Appropriate Laboratory Results 07/01/20 19:35: WBC 7.4, RBC 3.10 L, Hgb 10.4 L, Hct 32.7 L, MCV 105.5 H, MCH 33.5 H, MCHC 31.8 L, RDW Std Deviation 70.0 H, RDW Coeff of Erika 18.1 H, Plt Count 219, MPV 10.6, Immature Gran % (Auto) 0.700, Neut % (Auto) 81.8 H, Lymph % (Auto) 7.1 L, [place] % (Auto) 9.7, Eos % (Auto) 0.3, Baso % (Auto) 0.4, Absolute Neuts (auto) 6.1, Absolute Lymphs (auto) 0.53 L, Nucleated RBC % 0.3, Differential Comment SEE COMMENT, Platelet Estimate ADEQUATE, RBC Morphology N CHROM, Anisocytosis 1+, Macrocytosis 2+ 07/01/20 19:35: Sodium 135 L, Potassium 3.0 L, Chloride 97 L, Carbon Dioxide 27.0, Anion Gap 11, BUN 16, Creatinine 1.54 H, Estim Creat Clear Calc 25.28, Est GFR (MDRD) Af Amer 43 L, Est GFR (MDRD) Non-Af 35 L, BUN/Creatinine Ratio 10.4, Glucose 204 H, Calcium 9.2, Total Bilirubin 3.60 H, AST 107 H, ALT 143 H, Alkaline Phosphatase 712 H, Total Protein 7.0, Albumin 2.7 L, Globulin 4.3 H, Albumin/Globulin Ratio 0.6 L, Lipase 162 07/01/20 19:35: Lactic Acid 2.3 H* Current Medications Sodium Chloride () 1,000 mls @ 125 mls/hr IV .Q8H ALLYSON Last Admin: 07/01/20 19:39 Dose: 125 mls/hr Documented by: Iopamidol (Contrast Allergy Check) 0 ml IV X1 ALLYSON Assessment/Plan All Active Problems (Last Reviewed 07/06/19 @ 15:[address] Marc Ayoub MD) Malignant tumor of ureter (Acute) Orthostatic dizziness (Acute) 1. Abdominal pain secondary to metastatic ovarian cancer with malignant ascites/chronic elevated LFTs/LOAN -She is currently not receiving any chemotherapy for her ovarian cancer and she will follow-up with Dr. Michael on Friday, she is on olaparib 200 mg p.o. twice daily -CT scan and PET scan on June 27 showed markedly hypermetabolic mural wall thickening of the terminal ileum and cecum in the right lower quadrant consistent with cancer implants as well as abdominal ascites -Her LFTs are chronic -Creatinine is around 1, currently 1.54 -Continue with IV fluids, as well as oxycodone 10 mg every 4 as needed and morphine 4 mg every 3 as needed -Had a 20-minute discussion with her on advanced care planning about the direction of palliative care and hospice. She would like to discuss it with her but would also be willing to meet with hospice while she is here to get further information clarification. It does not seem like she would like to make a decision until she is also spoken with Dr. Michael. 2. Chronic systolic CHF/HTN/HLD -We will hold Lasix secondary to LOAN -Hold Entresto secondary to LOAN -Continue with statin -Blood pressure stable 3. DM 2 -Hold glipizide -Continue with sliding scale insulin and Accu-Cheks AC at bedtime DVT: Heparin Inpatient E&M: 47450 Init Hosp L3
[2020-07-01 22:26] VITALS: BMI 29.8
[2020-07-01] MEDS: 0.9% Normal Saline 1,000 ML 100 ML IV (22:29)
[2020-07-01 22:31] VITALS: BP 119/56; PULSE 104; RESP 18; TEMP 36.7; O2SAT 99
[2020-07-01 22:44] VITALS: BMI 29.8
[2020-07-01] MEDS: Heparin Injection (Vial) 5,000 UNIT/ML VIAL 5000 UNIT SC (23:08)
[2020-07-01 23:16] LABS: Bedside Glucose 156 mg/dL (70-110)
[2020-07-01 23:44] LABS: Reflex Lactate? Y
[2020-07-01 23:54] LABS: Bacteria 0 SEEN /hpf (None Seen); Mucous, Urine 0 SEEN /hpf (<or=2+)
[2020-07-01 23:56] LABS: Color, Urine Straw (Yellow); Glucose, Dipstick Normal (Normal); Ketone-Dipstick 5 mg/dl (Negative); Leukocyte Esterase-Dipstick 100 /ul (Negative); Nitrite-Dipstick Negative (Negative); Occult Blood-Urine 10 /ul (Negative); Protein-Dipstick 30 mg/dl (Negative); Urine Clarity Clear (Clear); Urine Urobilinogen 4 mg/dl (Normal)
[2020-07-01 23:57] LABS: Urine Bilirubin Dipstick 1 mg/dL (Negative)
[2020-07-02 00:02] LABS: Red Blood Cells-Urine 0-5 SEEN /hpf (0-5); Squamous Epithelial Cells - UA 0-5 SEEN /hpf (5-10); White Blood Cells 5-10 SEEN /hpf (0-5)
[2020-07-02] MEDS: Calcium Carbonate 500 MG Tablet PO (01:03)
[2020-07-02] MEDS: Morphine 4 MG/ML Syringe IV ×2 (02:06→11:51)
[2020-07-02] MEDS: Ondansetron 4 MG/2 ML Vial IV (02:08)
[2020-07-02 02:13] VITALS: BP 131/71; PULSE 99; RESP 16; TEMP 37.2; O2SAT 97
[2020-07-02 05:29] LABS: Absolute Lymphocyte Count 0.69 X10^3/uL (0.83-4.51); Absolute Neutrophil Count 3.6 X10^3/uL (2.0-7.7); Basophil# 0.02 X10^3/uL; Basophil% 0.4 % (0-1); Differential Indicated SCAN CRITERIA MET; Eosinophil# 0.05 X10^3/uL; Hematocrit 28.8 % (37-47); Hemoglobin 9.2 g/dL (12.0-15.0); Lymphocyte # 0.69 X10^3/ul (4.0); Lymphocyte % 13.5 % (19-41); Mean Corp Hgb Conc 31.9 g/dL (32-36); Mean Corpuscular Hgb 33.9 pg (27.0-32.0); Mean Corpuscular Volume 106.3 fL (81-99); Mean Platelet Vol. 11.2 fl (6.2-12.0); Monocyte# 0.67 X10^3/uL; Monocyte% 13.1 % (0-10); NRBC Flagged by Analyzer 0 % (0-5); Neutrophil # 3.55 X10^3/uL (2.7-7.7); Neutrophil % 69.3 % (47-70); POSITIVE MORPHOLOGY YES; Platelet Count 160 K/mm3 (150-450); RBC Distribution Width CV 18.4 % (11.6-14.6); RBC Distribution Width SD 69.4 fl (35.1-43.9); Red Blood Count 2.71 M/mm3 (4.2-5.4); White Blood Count 5.1 K/mm3 (4.4-11.0)
[2020-07-02 05:46] LABS: Anion Gap 10 (5-15); BUN 16 mg/dL (7-18); BUN/Creat Ratio 13.7 RATIO (10-20); Calcium,Total 8.8 mg/dL (8.5-10.1); Chloride 103 mmol/L (98-107); Creatinine, Serum 1.17 mg/dL (0.55-1.02); EST Glomerular Filtration Rate 48 mL/min (>60); Est Glom Filt Rate - Afr Amer 59 mL/min (>60); Estimated Creatinine Clearance 33.28 ml/min; Glucose 148 mg/dL (74-106); Potassium 4.1 mmol/L (3.5-5.1); Sodium Level 137 mmol/L (136-145)
[2020-07-02 06:00] LABS: Differential Comment SCANNED; Microcytosis RARE; Polychromasia RARE
[2020-07-02] MEDS: Insulin Lispro 100 UNIT/ML INSULN.PEN SC ×3 (06:32→21:53)
[2020-07-02] MEDS: oxyCODONE 5 MG Tablet 10 MG PO ×2 (06:35→16:41)
[2020-07-02 08:00] VITALS: BP 126/41; PULSE 98; RESP 18; TEMP 36.9; O2SAT 93
[2020-07-02] MEDS: Heparin Injection (Vial) 5,000 UNIT/ML VIAL 5000 UNIT SC ×2 (08:28→21:53)
[2020-07-02] MEDS: Glucerna Shake 120 ML LIQUID PO (08:28)
[2020-07-02] MEDS: 0.9% Normal Saline 1,000 ML 100 ML IV ×2 (08:29→18:42)
[2020-07-02] MEDS: Ondansetron 4 MG/2 ML Vial 8 MG IV ×3 (09:20→22:30)
[2020-07-02] MEDS: 0.9% Saline Lock 10 ML Syringe IV ×5 (09:21→22:52)
[2020-07-02] MEDS: Metoclopramide 10 MG/2 ML Vial 5 MG IV (11:37)
[2020-07-02 12:00] LABS: Bedside Glucose 186 mg/dL (70-110)
--- NOTE | 2020-07-02 12:12 | PCM.NTREPORT ---
Nutrition Therapy Report - History Nutrition Services has been consulted to:: Manage nutrient details of diet order Current diet / nutrition support order:: Regular; glucerna 120 ml 4x/day medpass. - Anthropometric Measurements Height:: 5 ft 1 in Weight:: 71.6 kg Body Mass Index (BMI):: 29.8 - Relevant Labs Relevant Labs:: RBC 2.71 M/mm3 (4.2-5.4) L 07/02/20 05:25 Hgb 9.2 g/dL (12.0-15.0) L 07/02/20 05:25 Hct 28.8 % (37-47) L 07/02/20 05:25 MCV 106.3 fL (81-99) H 07/02/20 05:25 MCH 33.9 pg (27.0-32.0) H 07/02/20 05:25 MCHC 31.9 g/dL (32-36) L 07/02/20 05:25 RDW Std Deviation 69.4 fl (35.1-43.9) H 07/02/20 05:25 RDW Coeff of Erika 18.4 % (11.6-14.6) H 07/02/20 05:25 Immature Gran % (Auto) 2.700 % (0.0-0.9) H 07/02/20 05:25 Neut % (Auto) 81.8 % (47-70) H 07/01/20 19:35 Lymph % (Auto) 13.5 % (19-41) L 07/02/20 05:25 Young % (Auto) 13.1 % (0-10) H 07/02/20 05:25 Absolute Lymphs (auto) 0.69 X10^3/uL (0.83-4.51) L 07/02/20 05:25 Sodium 135 mmol/L (136-145) L 07/01/20 19:35 Potassium 3.0 mmol/L (3.5-5.1) L 07/01/20 19:35 Chloride 97 mmol/L (98-107) L 07/01/20 19:35 Creatinine 1.17 mg/dL (0.55-1.02) H 07/02/20 05:25 Est GFR (MDRD) Af Amer 59 mL/min (>60) L 07/02/20 05:25 Est GFR (MDRD) Non-Af 48 mL/min (>60) L 07/02/20 05:25 Glucose 148 mg/dL (74-106) H 07/02/20 05:25 Lactic Acid 2.3 mmol/L (0.4-1.9) H* 07/01/20 19:35 Total Bilirubin 3.60 mg/dL (0.20-1.00) H 07/01/20 19:35 AST 107 U/L (15-37) H 07/01/20 19:35 ALT 143 U/L (13-56) H 07/01/20 19:35 Alkaline Phosphatase 712 U/L (45-117) H 07/01/20 19:35 Albumin 2.7 g/dL (3.2-5.0) L 07/01/20 19:35 Globulin 4.3 g/dL (2.2-4.2) H 07/01/20 19:35 Albumin/Globulin Ratio 0.6 RATIO (0.9-2.4) L 07/01/20 19:35 - Assessment Food / Nutrition-Related History:: Pt reports nausea and vomiting x ~3 weeks; states I have a really easy gag reflex. When I feel pain I feel the nausea and vomiting coming on. Reports decreased intake/appetite d/t N/V tolerating ~2 meals per day as able over the past 3 weeks; usual intake 3 meals per day w/ several snacks. Last emesis this a.m. pt notes I feel like I could vomit right now- zofran provided per RN. Poor PO intake at this time d/t N/V. UBW ~180#, pt and pts note pt w/ 30# wt loss x ~ 1 month. CBW 157.9#; wt loss 22.1#/12.3% wt loss x 1 month. Last wt per EMR 06/19/18 195.1 #. Upon visual observation no s/s of muscle/fat loss. Pt w/ BLE non-pitting edema. Follows no special diet. SMBG 1x/day in a.m. w/ readings in 200's. Experiencing constipation pt suspects d/t not eating much- states usual BMs small and not formed. Pt w/ Hypo BS, + gas, abd soft/rounded/tender. CT scan re: hypermetabolic mural wall thickening of RLQ suggestive of serial; also has abdominal retorperitoneal pelvic lymphadenopathy. - Nutrition Diagnosis Problem / Etiology / Signs & Symptoms (PES):: Severe malnutrition in the context of acute illness/injury r/t inadequate oral intake d/t nausea and vomiting AEB <75% energy intake compared to estimated energy needs x 3 weeks and 22.1#/12.3% wt loss x 1 month. Evidence of Malnutrition Exists:: Yes Severe PCM:: Acute Illness - Nutrition Intervention Nutrition Prescription:: 5221-2036 calories, 70-80 grams protein. - Food / Nutrient Delivery Interventions Nutrition support ordered as / adjusted to:: Continue Regular diet w/ Glucerna 120 ml 4x/day at [facility]. Nutrition education provided?: No - MNT Monitoring Further MNT monitoring and evaluation required?: Yes MNT Follow-up in:: 3-5 days
[2020-07-02 12:17] VITALS: BMI 29.8
--- NOTE | 2020-07-02 13:54 | PN_ITS ---
<DonavanAparna SYSTEMS ACCOUNTANT - Last Filed: 07/02/20 14:12> Subjective: Patient seen and examined. Reports improvement in abdominal pain on current pain regimen. Complains of nausea, denies emesis however reports very little oral intake. Patient states she has lost about 20 pounds over the last few months. Patient recently switched to Dr. Michael, oncology and has her first appointment with him on Friday. She has not yet discussed recent PET scan, prognosis or treatment options with oncology. At this point, she is open to palliative care for pain and symptom management. - Physical Exam Vitals/I&O's: Vital Signs Temp Pulse Resp BP Pulse Ox 98.5 F 98 18 126/41 H 93 07/02/20 08:00 07/02/20 08:00 07/02/20 08:00 07/02/20 08:00 07/02/20 08:00 Oxygen Delivery Method Room Air Weight: 157 lb 13.616 oz Body Mass Index (BMI) 29.8 Intake and Output for Last 24 Hours 06/30/20 07/01/20 07/02/20 23:59 23:59 23:59 Intake Total 1643.75 / 1643.75 1000 / 1000 Output Total 400 / 400 Balance 1643.75 / 1643.75 600 / 600 General: Alert, Oriented x3, Cooperative HEENT: Atraumatic, PERRLA, EOMI, Normocephalic Neck: Supple, No JVD, Negative Carotid Bruits Lungs: Clear to auscultation, Normal air movement Cardiovascular: Regular rate, No murmurs Abdomen: Bowel Sounds Present, Soft, Tender - Central abdomen, area of firmness Extremities: No clubbing, No cyanosis, No edema, Capillary Refill Less than 3 Seconds Skin: No rashes, No breakdown Musculoskeletal: No Tenderness to Palpation of Joints or Extremities Neurological: Cranial nerves II-XII grossly intact, Neuro grossly intact Psych/Mental Status: Normal Affect, Appropriate Laboratory Results 07/01/20 19:35: WBC 7.4, RBC 3.10 L, Hgb 10.4 L, Hct 32.7 L, MCV 105.5 H, MCH 33.5 H, MCHC 31.8 L, RDW Std Deviation 70.0 H, RDW Coeff of Erika 18.1 H, Plt Count 219, MPV 10.6, Immature Gran % (Auto) 0.700, Neut % (Auto) 81.8 H, Lymph % (Auto) 7.1 L, Navarro % (Auto) 9.7, Eos % (Auto) 0.3, Baso % (Auto) 0.4, Absolute Neuts (auto) 6.1, Absolute Lymphs (auto) 0.53 L, Nucleated RBC % 0.3, Differential Comment SEE COMMENT, Platelet Estimate ADEQUATE, RBC Morphology N CHROM, Anisocytosis 1+, Macrocytosis 2+ 07/01/20 19:35: Sodium 135 L, Potassium 3.0 L, Chloride 97 L, Carbon Dioxide 27.0, Anion Gap 11, BUN 16, Creatinine 1.54 H, Estim Creat Clear Calc 25.28, Est GFR (MDRD) Af Amer 43 L, Est GFR (MDRD) Non-Af 35 L, BUN/Creatinine Ratio 10.4, Glucose 204 H, Calcium 9.2, Total Bilirubin 3.60 H, AST 107 H, ALT 143 H, Alkaline Phosphatase 712 H, Total Protein 7.0, Albumin 2.7 L, Globulin 4.3 H, Albumin/Globulin Ratio 0.6 L, Lipase 162 07/01/20 19:35: Lactic Acid 2.3 H* 07/01/20 23:06: POC Glucose 156 H 07/01/20 23:35: Urine Color Straw, Urine Clarity Clear, Urine pH 5.0, Ur Specific Tichnor 1.010, Urine Protein 30 H, Urine Glucose (UA) Normal, Urine Ketones 5 H, Urine Occult Blood 10 H, Urine Nitrite Negative, Urine Bilirubin 1 H, Urine Urobilinogen 4 H, Ur Leukocyte Esterase 100 H, Urine RBC 0-5 SEEN, Urine WBC 5-10 SEEN, Ur Squamous Epith Cells 0-5 SEEN, Urine Bacteria 0 SEEN, Urine Mucus 0 SEEN 07/02/20 05:25: WBC 5.1, RBC 2.71 L, Hgb 9.2 L, Hct 28.8 L, MCV 106.3 H, MCH 33.9 H, MCHC 31.9 L, RDW Std Deviation 69.4 H, RDW Coeff of Erika 18.4 H, Plt Count 160, MPV 11.2, Immature Gran % (Auto) 2.700 H, Neut % (Auto) 69.3, Lymph % (Auto) 13.5 L, Navarro % (Auto) 13.1 H, Eos % (Auto) 1.0, Baso % (Auto) 0.4, Absolute Neuts (auto) 3.6, Absolute Lymphs (auto) 0.69 L, Nucleated RBC % 0, Differential Comment SCANNED, Polychromasia RARE, Microcytosis RARE 07/02/20 05:25: Sodium 137, Potassium 4.1, Chloride 103, Carbon Dioxide 24.0, Anion Gap 10, BUN 16, Creatinine 1.17 H, Estim Creat Clear Calc 33.28, Est GFR (MDRD) Af Amer 59 L, Est GFR (MDRD) Non-Af 48 L, BUN/Creatinine Ratio 13.7, Glucose 148 H, Calcium 8.8 07/02/20 11:42: POC Glucose 186 H Current Medications Calcium Carbonate (Tums) 500 - 1,000 mg PO Q6H PRN PRN PRN Reason: HEARTBURN OR INDIGESTION Last Admin: 07/02/20 01:03 Dose: 1,000 mg Documented by: Dextrose (D50w Syringe) 0 gm IV X1 PRN; Protocol PRN Reason: Hypoglycemia Glucagon () 1 mg IM .X1 PRN PRN Reason: Hypoglycemia Heparin Sodium (Porcine) (Heparin Na) 5,000 unit SC Q12 [facility] Last Admin: 07/02/20 08:28 Dose: 5,000 unit Documented by: Sodium Chloride () 1,000 mls @ 100 mls/hr IV .Q10H [facility] Last Admin: 07/02/20 08:29 Dose: 100 mls/hr Documented by: Insulin Human Lispro (Humalog Kwikpen (Bkc)) 0 unit SC ACHS [facility]; Protocol Last Admin: 07/02/20 11:45 Dose: Not Given Documented by: Melatonin (Melatonin) 3 mg PO QHS PRN PRN PRN Reason: INSOMNIA Metoclopramide HCl (Reglan) 5 mg IV Q6 [facility] Last Admin: 07/02/20 11:37 Dose: 5 mg Documented by: Morphine Sulfate () 4 mg IV Q3H PRN PRN PRN Reason: Pain Score 6-10/10 Last Admin: 07/02/20 11:51 Dose: 4 mg Documented by: Nutritional Formula (Lactose Free) (Glucerna Shake) 120 ml PO 4X/DAY [facility] Last Admin: 07/02/20 08:28 Dose: 120 ml Documented by: Ondansetron HCl (Zofran) 8 mg IV Q6H PRN PRN PRN Reason: NAUSEA/VOMITING Last Admin: 07/02/20 09:20 Dose: 8 mg Documented by: Oxycodone HCl (Oxyir) 10 mg PO Q4H PRN PRN PRN Reason: Pain Score 4-5/10 Last Admin: 07/02/20 06:35 Dose: 10 mg Documented by: Sodium Chloride () 10 - 40 ml IV UD PRN PRN Reason: SALINE FLUSH Last Admin: 07/02/20 09:21 Dose: 10 ml Documented by: Medical Necessity - Tobacco Use Smoking Status: Never smoker Assessment/Plan All Active Problems (Last Reviewed 07/06/19 @ 15:[address] Marc Ayoub MD) Malignant tumor of ureter (Acute) Orthostatic dizziness (Acute) 1. Abdominal pain, nausea secondary to stage IV ovarian cancer-CT of abdomen and pelvis shows extensive loculated abdominal ascites. No intestinal obstruction. Severe biliary dilation, probable obstruction. Possibility of pancreatic lesion versus intraductal abnormality. PRN pain regimen. IV fluids. PRN antiemetics. Will discuss with Dr. Michael and request consult. 2. Acute kidney injury-secondary to dehydration from poor oral intake. Im proved. Trend BMP. 3. Moderate protein calorie malnutrition-as evidenced by poor oral intake. Recent 20 pound weight loss. Dietitian consult. 4. History of chemotherapy induced cardiomyopathy-echocardiogram 11/05/2019 demonstrates an EF of 51%, stage I diastolic dysfunction. Previous EF June 2018 15%. 5. Hypertension- stable, Entresto on hold. PRN hydralazine. Hold Lasix. 6. Hyperlipidemia-continue statin. 7. Type 2 diabetes mellitus-continue glipizide. Accu-Cheks with sliding scale insulin. DVT prophylaxis-heparin subcu This patient was seen by RAMANDEEP Montes De Oca under the supervision of Dr. Franco. <David Franco - Last Filed: 07/02/20 14:40> Subjective: History was taken from the patient itself. 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 This was followed by chemotherapy and radiotherapy until about a year ago. She follows [facility] oncologist. After that, she lost about 20 pounds over the last few months, is gradually developed ascites and oncology appointment with Dr. Michael first time on coming Friday. She further had she had a PET scan which showed metastatic deposits in abdomen, possible intraperitoneal surface and lungs. Physical exam General: Alert, Oriented x3, Cooperative HEENT: Atraumatic, PERRLA, EOMI, Normocephalic Oral: No Gingival or Mucosal Lesions/ Ulcerations Neck: Supple, No JVD, Negative Carotid Bruits Lungs: Air entry diminished in bilateral lung bases. No crepitation/rhonchi Cardiovascular: Regular rate, Regular Rhythm, Normal S1, Normal S2, No murmurs Abdomen: Bowel Sounds Present, Soft, Non Tender, shifting dullness present suggestive of ascites. Abdomen is not clinically distended to cause discomfort : No renal angle tenderness. No suprapubic tenderness. Extremities: Subtle bilateral ankle edema, Capillary Refill Less than 3 Seconds Skin: No rashes, No breakdown Musculoskeletal: No Tenderness to Palpation of Joints or Extremities Neurological: Cranial nerves II-XII grossly intact, Deep Tendon Reflexes 2+/4 and Symmetrical, Neuro grossly intact Psych/Mental Status: Normal Affect, Appropriate. - Physical Exam Vitals/I&O's: Vital Signs Temp Pulse Resp BP Pulse Ox 98.5 F 108 H 18 113/43 L 97 07/02/20 14:15 07/02/20 14:15 07/02/20 14:15 07/02/20 14:15 07/02/20 14:15 Oxygen Delivery Method Room Air Weight: 157 lb 13.616 oz Body Mass Index (BMI) 29.8 Intake and Output for Last 24 Hours 06/30/20 07/01/20 07/02/20 23:59 23:59 23:59 Intake Total 1643.75 / 1643.75 1000 / 1000 Output Total 400 / 400 Balance 1643.75 / 1643.75 600 / 600 Laboratory Results 07/01/20 19:35: WBC 7.4, RBC 3.10 L, Hgb 10.4 L, Hct 32.7 L, MCV 105.5 H, MCH 33.5 H, MCHC 31.8 L, RDW Std Deviation 70.0 H, RDW Coeff of Erika 18.1 H, Plt Count 219, MPV 10.6, Immature Gran % (Auto) 0.700, Neut % (Auto) 81.8 H, Lymph % (Auto) 7.1 L, Navarro % (Auto) 9.7, Eos % (Auto) 0.3, Baso % (Auto) 0.4, Absolute Neuts (auto) 6.1, Absolute Lymphs (auto) 0.53 L, Nucleated RBC % 0.3, Differential Comment SEE COMMENT, Platelet Estimate ADEQUATE, RBC Morphology N CHROM, Anisocytosis 1+, Macrocytosis 2+ 07/01/20 19:35: Sodium 135 L, Potassium 3.0 L, Chloride 97 L, Carbon Dioxide 27.0, Anion Gap 11, BUN 16, Creatinine 1.54 H, Estim Creat Clear Calc 25.28, Est GFR (MDRD) Af Amer 43 L, Est GFR (MDRD) Non-Af 35 L, BUN/Creatinine Ratio 10.4, Glucose 204 H, Calcium 9.2, Total Bilirubin 3.60 H, AST 107 H, ALT 143 H, Alkaline Phosphatase 712 H, Total Protein 7.0, Albumin 2.7 L, Globulin 4.3 H, Albumin/Globulin Ratio 0.6 L, Lipase 162 07/01/20 19:35: Lactic Acid 2.3 H* 07/01/20 23:06: POC Glucose 156 H 07/01/20 23:35: Urine Color Straw, Urine Clarity Clear, Urine pH 5.0, Ur Specific Tichnor 1.010, Urine Protein 30 H, Urine Glucose (UA) Normal, Urine Ketones 5 H, Urine Occult Blood 10 H, Urine Nitrite Negative, Urine Bilirubin 1 H, Urine Urobilinogen 4 H, Ur Leukocyte Esterase 100 H, Urine RBC 0-5 SEEN, Urine WBC 5-10 SEEN, Ur Squamous Epith Cells 0-5 SEEN, Urine Bacteria 0 SEEN, Urine Mucus 0 SEEN 07/02/20 05:25: WBC 5.1, RBC 2.71 L, Hgb 9.2 L, Hct 28.8 L, MCV 106.3 H, MCH 33.9 H, MCHC 31.9 L, RDW Std Deviation 69.4 H, RDW Coeff of Erika 18.4 H, Plt Count 160, MPV 11.2, Immature Gran % (Auto) 2.700 H, Neut % (Auto) 69.3, Lymph % (Auto) 13.5 L, Navarro % (Auto) 13.1 H, Eos % (Auto) 1.0, Baso % (Auto) 0.4, Absolute Neuts (auto) 3.6, Absolute Lymphs (auto) 0.69 L, Nucleated RBC % 0, Differential Comment SCANNED, Polychromasia RARE, Microcytosis RARE 07/02/20 05:25: Sodium 137, Potassium 4.1, Chloride 103, Carbon Dioxide 24.0, Anion Gap 10, BUN 16, Creatinine 1.17 H, Estim Creat Clear Calc 33.28, Est GFR (MDRD) Af Amer 59 L, Est GFR (MDRD) Non-Af 48 L, BUN/Creatinine Ratio 13.7, Glucose 148 H, Calcium 8.8 07/02/20 11:42: POC Glucose 186 H Current Medications Calcium Carbonate (Tums) 500 - 1,000 mg PO Q6H PRN PRN PRN Reason: HEARTBURN OR INDIGESTION Last Admin: 07/02/20 01:03 Dose: 1,000 mg Documented by: Dextrose (D50w Syringe) 0 gm IV X1 PRN; Protocol PRN Reason: Hypoglycemia Glucagon () 1 mg IM .X1 PRN PRN Reason: Hypoglycemia Heparin Sodium (Porcine) (Heparin Na) 5,000 unit SC Q12 [facility] Last Admin: 07/02/20 08:28 Dose: 5,000 unit Documented by: Sodium Chloride () 1,000 mls @ 100 mls/hr IV .Q10H [facility] Last Admin: 07/02/20 08:29 Dose: 100 mls/hr Documented by: Insulin Human Lispro (Humalog Kwikpen (Bkc)) 0 unit SC ACHS [facility]; Protocol Last Admin: 07/02/20 11:45 Dose: Not Given Documented by: Melatonin (Melatonin) 3 mg PO QHS PRN PRN PRN Reason: INSOMNIA Metoclopramide HCl (Reglan) 5 mg IV Q6 [facility] Last Admin: 07/02/20 11:37 Dose: 5 mg Documented by: Morphine Sulfate () 4 mg IV Q3H PRN PRN PRN Reason: Pain Score 6-10/10 Last Admin: 07/02/20 11:51 Dose: 4 mg Documented by: Nutritional Formula (Lactose Free) (Glucerna Lorenzo) 120 ml PO 4X/DAY [facility] Last Admin: 07/02/20 14:27 Dose: Not Given Documented by: Ondansetron HCl (Zofran) 8 mg IV Q6H PRN PRN PRN Reason: NAUSEA/VOMITING Last Admin: 07/02/20 09:20 Dose: 8 mg Documented by: Oxycodone HCl (Oxyir) 10 mg PO Q4H PRN PRN PRN Reason: Pain Score 4-5/10 Last Admin: 07/02/20 06:35 Dose: 10 mg Documented by: Sodium Chloride () 10 - 40 ml IV UD PRN PRN Reason: SALINE FLUSH Last Admin: 07/02/20 09:21 Dose: 10 ml Documented by: Assessment/Plan This patient was seen in conjunction with SYSTEMS ACCOUNTANT, Aparna. I have independently interviewed and examined the patient and reviewed pertinent history, examination findings, laboratory and plan of management. I have reviewed the note and agree with the documented findings with the few additional points. In brief, patient is 70-year-old woman is being admitted with stage IV ovarian cancer. She was diagnosed with stage III ovarian cancer in 2017 status post total hysterectomy, bilateral salpingo-oophorectomy, partial colectomy and left ureteric stent status post chemo and radiation which was completed about a year ago. CT abdomen pelvis with IV contrast without oral contrast reported as moderate to afebrile and severe extrahepatic biliary dilatation. Pancreas heterogeneous with multiple small defined hypodensities. No hepatic solid lesion. GB distended. Shows large amount of ascites along with bowel loops raising suspicion of adhesions. Antley, she is not having nausea, vomiting, constipation, diarrhea or GI bleed. Last bowel movement was yesterday and was adequate. Clinically she is not in all obstruction. Oncologist Dr. Michael has been consulted. Acute kidney injury mostly secondary to dehydration, prerenal. Creatinine was elevated 1.54 prior to contrast and currently 1.17. Patient is on IV fluid. Other comorbidities include moderate protein calorie malnutrition, history of chemotherapy-induced cardiomyopathy with stage I diastolic chronic heart f ailure, hypertension dyslipidemia and type 2 diabetes mellitus. Chronic moderate anemia, microcytic in nature. Vitamin B12 and folic acid ordered. UA WBC 5-10 cells. Patient does not have dysuria or new lower urinary tract symptoms. Living will/advanced directive/end of life care: Patient does not have living will or advanced directive. Her is power of litigation attorney associate for health. After discussion of procedures involved with full code, DNR CC arrest and DNR CC, the patient and her opted for DNR-CC Arrest. I feel patient has good physical capacity and functional ability for palliative chemotherapy. She is not hospice appropriate. Patient does not want artificial life support including intubation, tube feed, ventilator and/chest compression, central venous catheter, vasopressor and DC shock if needed DNR CC arrest with no intubation. Total time spent in [id number] encounter in discussion of advanced directive 16 minutes. I have discussed my assessment with SYSTEMS ACCOUNTANTAparna and orders have been reviewed. Clinical Impression(s) from Imaging Studies Abdomen/Pelvis CT 07/01/20 20:12 IMPRESSION: 1. Extensive loculated abdominal ascites, possibly malignant. 2. No intestinal obstruction, presumed peritoneal adhesions. Questionable lower pelvic soft tissue versus collapsed adhesed loops of bowel. 3. Severe biliary dilation, probably obstruction. Possibility of pancreatic lesion is present versus intraductal abnormality. Inpatient E&M: 03397 Subs Hosp L2 Procedures: 23545 Advncd Care Plan 30 Min
[2020-07-02 14:15] VITALS: BP 113/43; PULSE 108; RESP 18; TEMP 36.9; O2SAT 97
[2020-07-02 16:50] LABS: Bedside Glucose 180 mg/dL (70-110)
[2020-07-02] MEDS: Pyridoxine HCl 100 MG Tablet PO (18:42)
[2020-07-02] MEDS: proMETHazine 25 MG/ML Syringe 12.5 MG IV ×2 (18:43→22:52)
[2020-07-02 21:15] VITALS: BP 125/53; PULSE 116; RESP 16; TEMP 36.8; O2SAT 100
[2020-07-02 22:10] LABS: Bedside Glucose 152 mg/dL (70-110)
[2020-07-03 00:01] LABS: Bedside Glucose 161 mg/dL (70-110)
[2020-07-03] MEDS: proCHLORPERazine 10 MG/2 ML Vial IV (00:56)
[2020-07-03] MEDS: 0.9% Saline Lock 10 ML Syringe IV ×3 (00:56→05:01)
[2020-07-03] MEDS: proMETHazine 25 MG/ML Syringe 12.5 MG IV (02:55)
[2020-07-03 03:15] VITALS: BP 128/72; PULSE 118; RESP 14; TEMP 37.2; O2SAT 95
[2020-07-03] MEDS: 0.9% Normal Saline 1,000 ML 100 ML IV ×2 (04:41→14:41)
[2020-07-03] MEDS: Ondansetron 4 MG/2 ML Vial 8 MG IV (05:01)
[2020-07-03] MEDS: Oxymetazoline 0.05% 1 SPRAY SPRAY.BTL 2 SPRAY NASAL (05:38)
[2020-07-03 05:56] LABS: Hematocrit 31.5 % (37-47); Hemoglobin 9.7 g/dL (12.0-15.0); Mean Corp Hgb Conc 30.8 g/dL (32-36); Mean Corpuscular Hgb 33.7 pg (27.0-32.0); Mean Corpuscular Volume 109.4 fL (81-99); POSITIVE MORPHOLOGY YES; Platelet Count 198 K/mm3 (150-450); RBC Distribution Width CV 18.3 % (11.6-14.6); RBC Distribution Width SD 73.9 fl (35.1-43.9); Red Blood Count 2.88 M/mm3 (4.2-5.4); White Blood Count 4.7 K/mm3 (4.4-11.0)
[2020-07-03] MEDS: Lidocaine 4% 5 ML Ampul 2 ML INHALATION (05:57)
[2020-07-03 06:01] VITALS: PULSE 111; RESP 20
[2020-07-03 06:02] LABS: Scan Indicated on CBC? Y/N YES- FLAGS NOTED
--- NOTE | 2020-07-03 06:14 | CON.PCM_ITS ---
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 PRIOR TREATMENT & DATE: SURGERY & DATE?10/15/2016: Exploratory laparotomy, tumor debulking including enbloc resection of uterus/cervix/tubes and ovaries and recto-sigmoid and pelvic/bladder peritoneum (posterior exenteration), mobilization of splenic and hepatic flexures, total omentectomy, mobilization of the liver, right diaphragm peritonectomy, resection of multiple liver serosal implants, resection of right upper quadrant tumor including peritoneal disease behind the liver and overlying gerota fascia and adrenal gland, appendectomy, bilateral gutter peritoneal stripping, resection of small bowel mesenteric tumor and cecal tumor implants, debulking of bulky right pelvic and para-aortic nodes, staplesd colo-rectal re- anastomosis, optimal tumor debulking to 5 mm or less residual disease ? CHEMO?11/29/2016- 04/04/2017: Carbo AUC 6 and taxol 80 mg/m2 weekly (Dose Dense regimen), s/p cycle #6 day #15. ? 12/2017: Routine Ca-[address]. [address] scans showed?recurrence. ?12/18/2017?[facility]: There is normal venous flow without thrombus within the jugular veins bilaterally, left subclavian, axillary, brachial, basilic and cephalic veins.?No thrombus is seen. ?12/18/2017 IR guided right percutaneous nephrostomy placement ?12/19/2017 Removal of chest wall mediport ? 2ND LINE CHEMO?01/02/2018 - 05/29/2018: Chemotherapy with carboplatin/Gemcitabine and avastin s/p cycle 6 day 8. Avastin was not given with cycle #1 ? 06/12/[address] scan showed the fluid in the upper abdomen and mild fluid in the lung. ?CT a/p pelvis showed slight increase to stable single para- aortic node. Her CA-125 is normalized and she feels she is having a lot of side effects from chemo and like to have it on hold. Decision made to start PARP inhibitor. We discussed that we can also try to sample this fluid and see if it is malignant. ? 06/23/2018 admitted to OSH for SOB, found to have CHF. ?EF 15-20%. 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 ?Unlikely HTN induced cardiomyopathy. ?Cont losartan, beta nestor, lasix. ?F/u w cardiology outpatient. ? RADIATION?07/27/2018 - 07/31/2018 Para-aortic node S/P 2400 cGy in 3 fractions ? 11/27/2018: [facility] PATHOLOGY REVIEW FINAL DIAGNOSIS: ?URETER, RIGHT, BIOPSY - HIGH GRADE POORLY DIFFERENTIATED SEROUS CARCINOMA INVOLVING URETER. ?CRUSH ARTIFACT PRESENT. ?SEE COMMENT. COMMENT: Immunohistochemical stains for PAX8, GATA3, and WT1 were performed and were positive for WT1 and PAX8 and negative for GATA3 consistent with high grade papillary serous carcinoma. ?Dr. Brad Troncoso also reviewed the case and agrees with the diagnosis. ? 01/12/2019: Planned laser abalation of the ureteric residual disease - No tumor or evidence of recurrence at the area of the previous biopsy near the level of the mid-ureter. ? 12/30/2018 - 06/2019: Olaparib PARPi?- held during RT below Therapy initiated at 300 mg BID, patient stopped d/t side effects. 01/13/2019: Therapy resumed at 150 mg AM and 300 mg PM; patient tolerated well. 01/28/2019: Dose reduction planned in consideration of kidney function, dose reduced to 200 mg BID. ? 06/08/2019: CT scans show recurrent right ureter mass. Referred to Dr. Cordova for consideration of SBRT. Per Dr. Cordova, there are risks of bowel injury with SBRT. It may lead to colitis/fistula and/or necrosis. She expressed understandings. She wishes to pursue SBRT. ? 07/02/2019 - 07/07/2019: Right ureter mass SBRT S/P 2400 cGy in 3 fractions? ? 07/2019 - Present: Resumed Olaparib 200 mg BID. ? 04/11/2020: URETER BIOPSY, right - FEATURES SUGGESTIVE OF HIGH GRADE PAPILLARY SEROUS CARCINOMA. ?SEE COMMENT. COMMENT: ?Immunohistochemical stains for p53 and PAX8 were positive consistent with the diagnosis. ?Dr. Kyara Snow reviewed the case and agrees with the diagnosis. ? GENOMIC TESTIN01/14/2018: [facility] Results in Scanned Documents under this date, Outside Results ? IMAGIN06/02/2020 - CT C/A/P IMPRESSION Prominent mural thickening involving the terminal ileum, and cecum, and ascending colon which may be infectious, inflammatory, or neoplastic in etiology. ?Direct visualization with colonoscopy may be helpful. ?? Associated interval increase in size of multiple mesenteric lymph nodes. Stable appearing retroperitoneal adenopathy and pulmonary nodularity. Resolution of the right-sided hydronephrosis post right-sided double-J stent placement. Vascular disease. Additional findings noted in report. ? 06/27/2020 - PET/CT IMPRESSION 1. ?NECK: * ?Left supraclavicular conglomerate of hypermetabolic lymph nodes, consistent with metastatic disease. -?3.8 x 2.6 cm left supraclavicular conglomerate hypermetabolic lymph nodes with SUV max of 11.2, suggestive of metastatic disease. 2. ?CHEST: * ?Few subcentimeter mildly hypermetabolic mediastinal lymph nodes, concerning for metastatic disease. 3. ?ABDOMEN/PELVIS: * ?Markedly hypermetabolic mural wall thickening of the terminal ileum and cecum in the right lower quadrant, consistent with metastatic serosal implants. -?GI tract: Markedly hypermetabolic mural wall thickening of the terminal ileum and cecum in the right lower quadrant with SUV max of 18.1, suggestive of serosal implants. This hypermetabolic mass is seen to engulf the right ureter posteriorly (series 4, image 224). * ?Several hypermetabolic retroperitoneal soft tissue nodules/masses, consistent with metastatic disease. -?Mesentery/Peritoneum/retroperitoneum: 4.5 x 4.5 cm hypermetabolic right retroperitoneal soft tissue mass with SUV max of 15.7, consistent with metastatic disease. 1.5 x 1.0 cm hypermetabolic left lower quadrant retroperitoneal soft tissue nodule with SUV max 4.6, concerning for metastatic disease. * ?Multiple hypermetabolic abdominal, retroperitoneal and pelvic lymphadenopathy, consistent with metastatic disease. -?Lymph nodes: Multiple hypermetabolic abdominal, retroperitoneal and pelvic lymphadenopathy, consistent with metastatic disease. ?For reference: * ?2.6 x 1.4 cm portacaval node with SUV max of 15.2 * ?1.6 x 1.4 cm right lower quadrant mesenteric node with SUV max of 6.4 * ?1.8 x 1.4 cm right para-aortic retroperitoneal node with SUV max of 8.3 * ?1.0 cm left periaortic node with SUV max of 6.2 * ?1.4 x 1.2 cm right external iliac node with SUV max of 8.1 * ?Interval increase in abdominal ascites since CT 06/02/2020, likely malignant ascites. ? 4. ?EXTREMITIES/SKELETON: * ?Partially sclerotic hypermetabolic focus in the right L1 vertebral body, concerning for metastatic disease. -?Partially sclerotic hypermetabolic focus in the right L1 vertebral body with SUV max of 6.9, concerning for metastatic disease. * ?Small hypermetabolic focus in the subcutaneous tissues posteromedial right lower extremity/proximal thigh, likely representing a small metastatic subcutaneous nodule. -?A small focus of moderately intense uptake, having maximum SUV of 8.2, is noted in the posteromedial right upper thigh, measuring approximately 8 mm, likely representing a small metastatic deposit. BONE SCAN 06/30/2020: IMPRESSION: NO SCINTIGRAPHIC EVIDENCE FOR OSSEOUS METASTATIC DISEASE. DEGENERATIVE CHANGES, NOTED she presented to the hospital on Friday with increasing abdominal pain, nausea and loss of appetite. Initial CT scan suggested metastatic disease but no clear evidence of bowel obstruction. This morning, she required placement of NG tube for ongoing abdominal pain and clinical picture consistent with bowel obstruction. She initially had 600 cc of output. Currently pain free. No nausea the present moment. Past Medical History: Chronic Problems (Last Reviewed 07/06/19 @ 15:[address] 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) Essential (primary) hypertension (Chronic) Chronic systolic (congestive) heart failure (Chronic) Primary cancer of ovary with widespread metastatic disease (Chronic) Past Medical/Surgical History: Past Medical History - Most Recent Inpatient Visit Past Medical History Start: 07/01/20 22:23 Text: Status: Complete Freq: ONCE Protocol: Document 07/01/20 22:44 CDS (Rec: 07/01/20 22:46 CDS [id number]) BMI Required to complete PMH What is Patient's BMI 29.8 Past Medical History Unable History Recalled No Query Text:Pt Unable/Family Not Present Neurologic Medical History Hx Stroke/TIA No Hx Dementia/Alzheimer's No Hx Parkinson's Disease No Hx Seizures No Hx Multiple Sclerosis No Hx Migraines No Cardiac Medical History VTE Present on Admission No Hx of Deep Vein Thrombosis/VTE/PE No Hx Hypertension Yes: CONTROLLED WITH MED Hx Chest Pain/Angina No Hx Heart Attack No Hx Cardiac Surgery/Stents/Etc. No Hx Heart Failure Yes Hx Pacemaker/AICD No Hx Irregular Heartbeat and/or Afib No: FOLLOWS WITH DR KELLEY/LAST VISIT 10/2018 Hx Anticoagulant Therapy No Query Text:(Coumadin, Aspirin, Plavix, Xarelto, etc.) Hx Pain in Legs when Walking/Leg Cramps Yes: LEG CRAMPS AT NIGHT Respiratory Medical History Hx COPD No Hx Emphysema No Hx Smoking No Smoking Status Never smoker Hx Smoking Exposure Yes: parents both smoked as child growing up. Hx Tobacco Use in last 12 months No Hx of Pipe Smoking No Hx Sleep Apnea No Do you snore loudly (louder than talking Yes or can be heard through closed doors)? Do you often feel tired/ fatigued/ No sleepy during daytime? Has anyone observed you stop breathing No during sleep? 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 Hx of Preganancy in last 3 Months No Nurse Filling Out Transfusion & CSNYDER Questions: Date: 07/01/20 Time: 22:45 Psycho/Social Medical History Hx Depression No Hx Anxiety No Hx Behavior Disorder No Hx Alcohol Use No Hx Substance Use No Other Medical History Hx Blood Disorders No Hx Anemia No Hx Cancer Yes: ovarian stage 3/URETER CANCER/CHEMO AND RADIATION Hx Drug Resistant Organism No Wound/Pressure Injury Present on Arrival No /Admission Query Text:If yes, chart assessment in Shift/Clinical Findings Central Line/PICC/VAD Present on Arrival No /Admission Risk for Readmission Number of Risk Factors 6 At Risk for Readmission Patient is At Risk For Readmission Patient is eligible for Call Back Y Past Medical History (Last Reviewed 07/06/19 @ 15:[address] 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) Essential (primary) hypertension (Chronic) Chronic systolic (congestive) heart failure (Chronic) Primary cancer of ovary with widespread metastatic disease (Chronic) Diabetes mellitus type II, controlled, with no complications (Acute) Cardiomyopathy due to chemotherapy (Chronic) Dyspnea (Inactive) Past Surgical History (Last Reviewed 07/06/19 @ 15:[address] Marc Kelley MD) History of hysterectomy for cancer (Resolved) History of left heart catheterization (Resolved 06/21/18) Maternal Family History: Family History (Last Reviewed 07/06/19 @ 15:[address] Marc Kelley MD) Mother Heart abnormality Sister Cancer - Social History Smoking Status: Never smoker Alcohol: None Drugs: None Allergies/Adverse Reactions: Allergy/AdvReac Type Severity Reaction Status Date / Time lisinopril Allergy Other Verified 07/01/20 18:05 Vital Signs Temperature 99 F 07/03/20 03:15 Temperature Source Temporal 07/03/20 03:15 Pulse Rate 118 H 07/03/20 03:15 Pulse Strength Normal (2+) 07/02/20 22:00 Respiratory Rate 14 07/03/20 03:15 Respiratory Effort Non-Labored 07/02/20 23:00 Respiratory Depth Normal 07/02/20 23:00 Respiratory Pattern Normal 07/02/20 23:00 Blood Pressure 128/72 H 07/03/20 03:15 Blood Pressure Mean 90 07/03/20 03:15 Blood Pressure Source Monitor 07/03/20 03:15 Blood Pressure Position Semi-Fowlers 07/03/20 03:15 Blood Pressure Location Left Forearm 07/03/20 03:15 Pulse Ox 95 07/03/20 03:15 Oxygen Delivery Method Room Air 07/03/20 03:15 Laboratory Data: Laboratory Tests 07/03/20 07/02/20 07/02/20 Range/Units 05:35 21:51 16:40 WBC 4.7 (4.4-11.0) K/mm3 RBC 2.88 L (4.2-5.4) M/mm3 Hgb 9.7 L (12.0-15.0) g/dL Hct 31.5 L (37-47) % MCV 109.4 H (81-99) fL MCH 33.7 H (27.0-32.0) pg MCHC 30.8 L (32-36) g/dL RDW Std Deviation 73.9 H (35.1-43.9) fl RDW Coeff of Erika 18.3 H (11.6-14.6) % Plt Count 198 (150-450) K/mm3 MPV 11.0 (6.2-12.0) fl POC Glucose 152 H 180 H (70-110) mg/dL 07/02/20 07/02/20 Range/Units 11:42 06:30 WBC (4.4-11.0) K/mm3 RBC (4.2-5.4) M/mm3 Hgb (12.0-15.0) g/dL Hct (37-47) % MCV (81-99) fL MCH (27.0-32.0) pg MCHC (32-36) g/dL RDW Std Deviation (35.1-43.9) fl RDW Coeff of Erika (11.6-14.6) % Plt Count (150-450) K/mm3 MPV (6.2-12.0) fl POC Glucose 186 H 161 H (70-110) mg/dL Diagnostic Data: Diagnostic Data Abdomen/Pelvis CT 07/01/20 20:12 IMPRESSION: 1. Extensive loculated abdominal ascites, possibly malignant. 2. No intestinal obstruction, presumed peritoneal adhesions. Questionable lower pelvic soft tissue versus collapsed adhesed loops of bowel. 3. Severe biliary dilation, probably obstruction. Possibility of pancreatic lesion is present versus intraductal abnormality. Electronically Signed: Jessica Iglesias, at 20:52 EDT Tel , Service support , Assessment and Plan ASSESSMENT:?? -Stage IIIC high grade serous fallopian tube cancer, S/P optimal surgical debu lking as detailed above and chemotherapy dose dense x6 cycles. -Recurrent disease?with?PFI ~8 mo; received?carbo/gemictiabine/avastin?x6 cycles as second line until 05/2018. Olaparib started 06/2018. -07/2018 RT to para-aortic nodes -11/2018 Second recurrence in right ureter s/p ablation with excellent results. Continued Olaparib. -Third recurrence 06/2019 again in the right ureter s/p SBRT x3 fx. Continued Olaparib. -04/2020 Recurrent right ureter mass with no other obvious areas of recurrence; plan for ureter resection with Dr. Garcia (urology). -06/2020 Preop PET scan showing many areas of recurrent disease, patient symptomatic and CA-125 >1,000 -she's had significant progression of disease in the last several months. -Now admitted for bowel obstruction. -Symptoms responding to nasogastric drainage decompression. -I had an in-depth discussion with the patient and her this morning regarding the plan moving forward. Her KPS is 30%. Chemotherapy is contraindicated presently. It's unclear that she would improve to the point where she could receive more cytotoxic chemotherapy in the fourth line setting. If so, given the advanced state of disease, doubtful there would be significant benefit in terms of disease response, palliation of symptoms and improvement of quality of life. For the time being I suggested we see how the bowel obstruction response to conservative measures, but we also discussed palliative care/hospice care and may transition to hospice in the next day or two pending clinical course. Plan: -Continue current management of bowel obstruction with nasogastric decompression, IV hydration and nothing by mouth status. -Will follow. Medications: Prescriptions This Visit Medication Instructions Recorded Furosemide 40 mg PO BID 07/01/20 Ondansetron [Zofran Odt] 4 mg PO Q8H PRN PRN 07/01/20 Potassium Chloride [K-Dur] 20 meq PO DAILY 07/01/20 Sacubitril/Valsartan 24/26 mg 1 ea PO BID 07/01/20 [Entresto 24 mg-26 mg Tablet] Medications Added to Medication List This Visit Category Date Time Status Ondansetron [Zofran] Med 07/03/20 00:38 Active 8 mg IV Q6H PRN PRN Phenol/Sodium Phenolate [Chloraseptic (BKC)] Med 07/03/20 05:06 Active 5 spray MM Q2H PRN PRN Pyridoxine HCl [Vitamin B-6] Med 07/03/20 08:00 Active 100 mg PO DAILY@0800 proCHLORPERazine IV [Compazine IV] Med 07/03/20 00:38 Active 10 mg IV Q6H PRN PRN Primary Care Provider: Lila Guido PA-C Referring Provider:
[2020-07-03 06:17] LABS: Differential Comment SCANNED
--- NOTE | 2020-07-03 06:23 | RAD_ITS ---
STUDY: X-RAY - ABDOMEN/PELVIS REASON FOR EXAM: Female, 70 years old. NG tube placement TECHNIQUE: Single AP view of the abdomen / pelvis. COMPARISON: None. FINDINGS: A nasogastric tube has been placed. The distal tip of the tube is in the antral portion of the stomach. There is an unremarkable bowel gas pattern. A right-sided double-J stent catheter has been placed. RAD/Abdomen Single View (Portable) IMPRESSION: The tip of the nasogastric tube is in the antral portion of the stomach. Electronically Signed: Alfonso Guaman, at 10:18 EDT , Service support ,
[2020-07-03] MEDS: Insulin Lispro 100 UNIT/ML INSULN.PEN SC ×2 (06:33→21:07)
[2020-07-03 06:42] LABS: ALB/GLOB Ratio 0.6 RATIO (0.9-2.4); AST(SGOT) 54 U/L (15-37); Alanine Aminotransfer ALT/SGPT 98 U/L (13-56); Albumin, Serum 2.3 g/dL (3.2-5.0); Alkaline Phosphatase 560 U/L (45-117); Anion Gap 8 (5-15); BUN 16 mg/dL (7-18); BUN/Creat Ratio 17.1 RATIO (10-20); Chloride 103 mmol/L (98-107); Creatinine, Serum 0.94 mg/dL (0.55-1.02); EST Glomerular Filtration Rate 63 mL/min (>60); Est Glom Filt Rate - Afr Amer 76 mL/min (>60); Estimated Creatinine Clearance 41.42 ml/min; Globulin 3.9 g/dL (2.2-4.2); Glucose 195 mg/dL (74-106); Potassium 3.1 mmol/L (3.5-5.1); Protein, Total 6.2 g/dL (6.4-8.2); Sodium Level 139 mmol/L (136-145)
[2020-07-03 06:46] LABS: Bedside Glucose 175 mg/dL (70-110)
[2020-07-03] MEDS: Phenol/Sodium Phenolate 180ML 5 SPRAY MM (06:57)
[2020-07-03 08:00] VITALS: BP 144/87; PULSE 109; RESP 18; TEMP 37; O2SAT 99
[2020-07-03 08:44] LABS: Vitamin B12 679 pg/mL (211-911)
[2020-07-03] MEDS: Potassium Chloride 10mEq/100mL 10 MEQ/100 ML IV.SOLN. 100 MEQ IV BOLUS ×4 (09:14→12:35)
[2020-07-03 09:16] LABS: Magnesium 2.2 mg/dL (1.6-2.6)
--- NOTE | 2020-07-03 10:05 | CASEMGMT ---
RN CM Face to Face with patient for initial transition planning/care coordination assessment. RN CM introduced self and role at [facility]. Patient lying in bed, alert and oriented. Patient willing to participate in assessment and is able to answer all questions appropriately. Care providers, pharmacy, and demographics verified. Patient wishes to discharge home, denies need for home health at this time. Patient states she has no further needs or concerns at this time. CM to follow for discharge planning needs that may arise. PCP: Lila MCCAIN Specialists: Anitra, spice fumigator; Rajendra, Oncologist; Art Set Making Machine Operator; Alex, CELL PHONE REPAIR TECHNICIAN Preferred Pharmacy: [facility] Insurance: [facility], [place] Prescription Benefit: yes Living Will/HPOA: none LNOK: Living Arrangements: Patient lives with in a single story home with 2 steps to enter the home. Patient states she is independent at home. Transportation: self/ DME/HHC: Patient states she has a cane at home. Denies additional DME. Patient denies previous HHC. Disposition Plan: Patient to discharge home with family support and follow-up plans in place. Dariana SLOAN, RN, CM
[2020-07-03] MEDS: Heparin Injection (Vial) 5,000 UNIT/ML VIAL 5000 UNIT SC ×2 (10:31→21:09)
--- NOTE | 2020-07-03 11:01 | CASEMGMT ---
Social Work Note SW received consult for Hospice. SW in to speak with pt. SW introduced self and role at [facility]. Pt is alert and orientated x3, agreeable to Hospice referral. Pt asked for Hospice to call her regarding referral as she has NG tube in and it is hard for her to talk with the NG tube. SW placed a call to [facility] and provided referral to [place]. SW faxed referral. Dariana Shah ENTRY LEVEL ACCOUNT REPRESENTATIVE, GRANITE FABRICATOR
[2020-07-03 11:35] LABS: Bedside Glucose 152 mg/dL (70-110)
--- NOTE | 2020-07-03 13:06 | CHAPLAIN ---
Type of Pastoral Visit _x__ Initial Visit ___ Follow-up Visit ___ On-call Visit ___ General Patient Visit ___ Spiritual Assessment ___ Family Conference ___ Bereavement ___ Rapid Response ___ Code Blue ___ Other (describe below) Pastoral Care Referral From ___ Patient ___ Family _x__ Nurse ___ Physician ___ Supervisor Calibration ___ Residential Coordinator ___ Other (describe below) Sacrament/Intervention _x__ Active listening ___ Anointing ___ Restorationism ___ Bereavement ___ Communion ___ Kaci exploration ___ ___ Life review _x__ Prayer ___ Reconciliation ___ Sacrament of Sick ___ Supportive presence ___ Wedding ___ Other (describe below) Pastoral Comments patient and her spouse were in room; spouse starts the brief conversation while pt appeared to be resting; however pt became engaged in conversation; pt says that she would welcome a prayer; pt and spouse are members of a anabaptism in [facility]; pt indicates she has come to point of accepting of whatever God has for me
--- NOTE | 2020-07-03 13:51 | PN_ITS ---
<Aparna Go WHITE MIXING OPERATOR - Last Filed: 07/03/20 14:02> Subjective: Patient seen and examined. NG tube placed earlier this morning due to recurrent emesis. Nausea, vomiting has since resolved. Patient reports improvement in abdominal pain. Oncology met with patient and this morning and recommended hospice. Patient agreeable to consult. - Physical Exam Vitals/I&O's: Vital Signs Temp Pulse Resp BP Pulse Ox 98.6 F 109 H 18 144/87 H 99 07/03/20 08:00 07/03/20 08:00 07/03/20 08:00 07/03/20 08:00 07/03/20 08:00 Oxygen Delivery Method Room Air Weight: 157 lb 13.616 oz Body Mass Index (BMI) 29.8 Intake and Output for Last 24 Hours 07/01/20 07/02/20 07/03/20 23:59 23:59 23:59 Intake Total 1643.75 / 1643.75 2222 / 2222 1296.66 / 1296.66 Output Total 800 / 1100 1425 / 1425 Balance 1643.75 / 1643.75 1422 / 1122 -128.34 / -128.34 General: Alert, Oriented x3, Cooperative HEENT: Atraumatic, PERRLA, EOMI, Normocephalic Oral: Dry Mucosa Neck: Supple, No JVD, Negative Carotid Bruits Lungs: Clear to auscultation, Diminished Cardiovascular: Regular Rhythm, Tachycardic Abdomen: Bowel Sounds Present, Soft, Distended, Tender Extremities: No clubbing, No cyanosis, No edema Skin: No rashes, No breakdown Musculoskeletal: No Tenderness to Palpation of Joints or Extremities Neurological: Cranial nerves II-XII grossly intact, Neuro grossly intact Psych/Mental Status: Normal Affect, Appropriate Laboratory Results 07/02/20 06:30: POC Glucose 161 H 07/02/20 16:40: POC Glucose 180 H 07/02/20 21:51: POC Glucose 152 H 07/03/20 05:35: WBC 4.7, RBC 2.88 L, Hgb 9.7 L, Hct 31.5 L, MCV 109.4 H, MCH 33.7 H, MCHC 30.8 L, RDW Std Deviation 73.9 H, RDW Coeff of Erika 18.3 H, Plt Count 198, MPV 11.0, Differential Comment SCANNED 07/03/20 05:35: Vitamin B12 679 07/03/20 05:35: Sodium 139, Potassium 3.1 L, Chloride 103, Carbon Dioxide 28.0, Anion Gap 8, BUN 16, Creatinine 0.94, Estim Creat Clear Calc 41.42, Est GFR (MDRD) Af Amer 76, Est GFR (MDRD) Non-Af 63, BUN/Creatinine Ratio 17.1, Glucose 195 H, Calcium 9.0, Total Bilirubin 3.80 H, AST 54 H, ALT 98 H, Alkaline Phosphatase 560 H, Total Protein 6.2 L, Albumin 2.3 L, Globulin 3.9, Albumin/Globulin Ratio 0.6 L, Folate 12.50 07/03/20 05:35: Magnesium 2.2 07/03/20 06:32: POC Glucose 175 H 07/03/20 11:31: POC Glucose 152 H Current Medications Calcium Carbonate (Tums) 500 - 1,000 mg PO Q6H PRN PRN PRN Reason: HEARTBURN OR INDIGESTION Last Admin: 07/02/20 01:03 Dose: 1,000 mg Documented by: Dextrose (D50w Syringe) 0 gm IV X1 PRN; Protocol PRN Reason: Hypoglycemia Glucagon () 1 mg IM .X1 PRN PRN Reason: Hypoglycemia Heparin Sodium (Porcine) (Heparin Na) 5,000 unit SC Q12 [facility] Last Admin: 07/03/20 10:31 Dose: 5,000 unit Documented by: Sodium Chloride () 1,000 mls @ 100 mls/hr IV .Q10H [facility] Last Admin: 07/03/20 04:41 Dose: 100 mls/hr Documented by: Insulin Human Lispro (Humalog Kwikpen (Bkc)) 0 unit SC ACHS [facility]; Protocol Last Admin: 07/03/20 11:43 Dose: Not Given Documented by: Melatonin (Melatonin) 3 mg PO QHS PRN PRN PRN Reason: INSOMNIA Morphine Sulfate () 4 mg IV Q3H PRN PRN PRN Reason: Pain Score 6-10/10 Last Admin: 07/02/20 11:51 Dose: 4 mg Documented by: Ondansetron HCl (Zofran) 8 mg IV Q6H PRN PRN PRN Reason: NAUSEA/VOMITING Last Admin: 07/03/20 05:01 Dose: 8 mg Documented by: Oxycodone HCl (Oxyir) 10 mg PO Q4H PRN PRN PRN Reason: Pain Score 4-5/10 Last Admin: 07/02/20 16:41 Dose: 10 mg Documented by: Phenol/Menthol (Chloraseptic (Bkc)) 5 spray MM Q2H PRN PRN PRN Reason: SORE THROAT Last Admin: 07/03/20 06:57 Dose: 5 spray Documented by: Prochlorperazine Edisylate (Compazine Iv) 10 mg IV Q6H PRN PRN PRN Reason: NAUSEA/VOMITING Last Admin: 07/03/20 00:56 Dose: 10 mg Documented by: Promethazine HCl (Phenergan) 12.5 mg IV Q4H PRN PRN PRN Reason: NAUSEA/VOMITING Last Admin: 07/03/20 02:55 Dose: 12.5 mg Documented by: Pyridoxine HCl (Vitamin B-6) 100 mg PO DAILY@0800 [facility] Last Admin: 07/03/20 11:44 Dose: Not Given Documented by: Sodium Chloride () 10 - 40 ml IV UD PRN PRN Reason: SALINE FLUSH Last Admin: 07/03/20 05:01 Dose: 10 ml Documented by: Medical Necessity - Tobacco Use Smoking Status: Never smoker Assessment/Plan All Active Problems (Last Reviewed 07/06/19 @ 15:[address] Marc Ayoub MD) Malignant tumor of ureter (Acute) Orthostatic dizziness (Acute) 1. 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 No intestinal obstruction. Severe biliary dilation, probable obstruction. Possibility of pancreatic lesion versus intraductal abnormality. PRN pain regimen. IV fluids. PRN antiemetics. NG in place. Dr. Michael consulted. Recommended hospice, consult pending. 2. Acute kidney injury-secondary to dehydration from poor oral intake. Improved. Trend BMP. 3. Severe protein calorie malnutrition-as evidenced by poor oral intake. Recent 20 pound weight loss. Dietitian consult. 4. History of chemotherapy induced cardiomyopathy-echocardiogram 11/05/2019 demonstrates an EF of 51%, stage I diastolic dysfunction. Previous EF June 2018 15%. 5. Hypertension- stable, Entresto on hold. PRN hydralazine. Hold Lasix. 6. Hyperlipidemia-continue statin. 7. Type 2 diabetes mellitus-continue glipizide. Accu-Cheks with sliding scale insulin. DVT prophylaxis-heparin subcu Discharge planning: Pending hospice consult and symptomatic improvement. This patient was seen by RAMANDEEP Montes De Oca under the supervision of Dr. Eid. <Bin Eid - Last Filed: 07/03/20 14:24> - Physical Exam Vitals/I&O's: Vital Signs Temp Pulse Resp BP Pulse Ox 37.0 C 109 H 18 144/87 H 99 07/03/20 08:00 07/03/20 08:00 07/03/20 08:00 07/03/20 08:00 07/03/20 08:00 Oxygen Delivery Method Room Air Weight: 71.6 kg Body Mass Index (BMI) 29.8 Intake and Output for Last 24 Hours 07/01/20 07/02/20 07/03/20 23:59 23:59 23:59 Intake Total 1643.75 / 1643.75 2222 / 2222 1296.66 / 1296.66 Output Total 800 / 1100 1425 / 1425 Balance 1643.75 / 1643.75 1422 / 1122 -128.34 / -128.34 General: Alert, Cooperative HEENT: Atraumatic, Normocephalic Oral: Dry Mucosa Neck: Supple, Negative Carotid Bruits Lungs: Clear to auscultation, Diminished Cardiovascular: Regular Rhythm, Tachycardic Abdomen: Bowel Sounds Present, Soft, Distended, Tender Extremities: No clubbing, No cyanosis, No edema Skin: No rashes, No breakdown Musculoskeletal: No Tenderness to Palpation of Joints or Extremities Neurological: Cranial nerves II-XII grossly intact, Neuro grossly intact Psych/Mental Status: Normal Affect, Appropriate Laboratory Results 07/02/20 06:30: POC Glucose 161 H 07/02/20 16:40: POC Glucose 180 H 07/02/20 21:51: POC Glucose 152 H 07/03/20 05:35: WBC 4.7, RBC 2.88 L, Hgb 9.7 L, Hct 31.5 L, MCV 109.4 H, MCH 33.7 H, MCHC 30.8 L, RDW Std Deviation 73.9 H, RDW Coeff of Erika 18.3 H, Plt Count 198, MPV 11.0, Differential Comment SCANNED 07/03/20 05:35: Vitamin B12 679 07/03/20 05:35: Sodium 139, Potassium 3.1 L, Chloride 103, Carbon Dioxide 28.0, Anion Gap 8, BUN 16, Creatinine 0.94, Estim Creat Clear Calc 41.42, Est GFR (MDRD) Af Amer 76, Est GFR (MDRD) Non-Af 63, BUN/Creatinine Ratio 17.1, Glucose 195 H, Calcium 9.0, Total Bilirubin 3.80 H, AST 54 H, ALT 98 H, Alkaline Phosphatase 560 H, Total Protein 6.2 L, Albumin 2.3 L, Globulin 3.9, Albumin/Globulin Ratio 0.6 L, Folate 12.50 07/03/20 05:35: Magnesium 2.2 07/03/20 06:32: POC Glucose 175 H 07/03/20 11:31: POC Glucose 152 H Current Medications Calcium Carbonate (Tums) 500 - 1,000 mg PO Q6H PRN PRN PRN Reason: HEARTBURN OR INDIGESTION Last Admin: 07/02/20 01:03 Dose: 1,000 mg Documented by: Dextrose (D50w Syringe) 0 gm IV X1 PRN; Protocol PRN Reason: Hypoglycemia Glucagon () 1 mg IM .X1 PRN PRN Reason: Hypoglycemia Heparin Sodium (Porcine) (Heparin Na) 5,000 unit SC Q12 [facility] Last Admin: 07/03/20 10:31 Dose: 5,000 unit Documented by: Sodium Chloride () 1,000 mls @ 100 mls/hr IV .Q10H [facility] Last Admin: 07/03/20 04:41 Dose: 100 mls/hr Documented by: Insulin Human Lispro (Humalog Kwikpen (Bkc)) 0 unit SC ACHS [facility]; Protocol Last Admin: 07/03/20 11:43 Dose: Not Given Documented by: Melatonin (Melatonin) 3 mg PO QHS PRN PRN PRN Reason: INSOMNIA Morphine Sulfate () 4 mg IV Q3H PRN PRN PRN Reason: Pain Score 6-10/10 Last Admin: 07/02/20 11:51 Dose: 4 mg Documented by: Ondansetron HCl (Zofran) 8 mg IV Q6H PRN PRN PRN Reason: NAUSEA/VOMITING Last Admin: 07/03/20 05:01 Dose: 8 mg Documented by: Oxycodone HCl (Oxyir) 10 mg PO Q4H PRN PRN PRN Reason: Pain Score 4-5/10 Last Admin: 07/02/20 16:41 Dose: 10 mg Documented by: Phenol/Menthol (Chloraseptic (Bkc)) 5 spray MM Q2H PRN PRN PRN Reason: SORE THROAT Last Admin: 07/03/20 06:57 Dose: 5 spray Documented by: Prochlorperazine Edisylate (Compazine Iv) 10 mg IV Q6H PRN PRN PRN Reason: NAUSEA/VOMITING Last Admin: 07/03/20 00:56 Dose: 10 mg Documented by: Promethazine HCl (Phenergan) 12.5 mg IV Q4H PRN PRN PRN Reason: NAUSEA/VOMITING Last Admin: 07/03/20 02:55 Dose: 12.5 mg Documented by: Pyridoxine HCl (Vitamin B-6) 100 mg PO DAILY@0800 [facility] Last Admin: 07/03/20 11:44 Dose: Not Given Documented by: Sodium Chloride () 10 - 40 ml IV UD PRN PRN Reason: SALINE FLUSH Last Admin: 07/03/20 05:01 Dose: 10 ml Documented by: Assessment/Plan Patient seen and examined independently. Data reviewed. I agree with the above note by the nurse practitioner. 1. Abdominal pain: Secondary to ascites due to advanced metastatic stage IIIc high-grade serous fallopian tube neoplasm. Seen by oncology. Patient has apparently exhausted previous treatments and malignancy is continue to worsen. Hospice has been recommended and a consult is currently pending. Inpatient E&M: 10512 Subs Hosp L2
--- NOTE | 2020-07-03 15:47 | CASEMGMT ---
Social Work Note DIANNA spoke with Alison from [facility] stating pt is not agreeable to signing with either Palliative or Hospice at this time. Pt requested [facility] follow up with pt on Friday. Alison states pt would like to wait to determine if pt will be having surgery or not before signing any papers. Dariana Shah CONCRETE BUCKET UNLOADER, TIMBER FALLER
--- NOTE | 2020-07-03 16:01 | CON.PCM_ITS ---
Problem List (1) Partial small bowel obstruction Status: Acute Reason for Consult Date of Consultation: 07/03/20 History of Present Illness: The patient is a 70 year old F with a PMH as below who presents to the hospital with abdominal pain secondary to her stage IV ovarian cancer. She does have abdominal ascites as well as probable obstruction of her biliary tree which is also chronic. She does have chronically elevated LFTs that are not more elev ated today than normal. She said that she started having abdominal pain this morning and it was not relieved by anything. She also had multiple episodes of emesis and this was not managed with her Zofran either, her creatinine on admission was 1.54, her baseline is 1. Also on admission her lactic acid was elevated to 2.3. She has not had any chemotherapy since last year however she does take an oral pill every day twice a day. She says that her cancer has progressed even while on chemotherapy and that she has already discussed the possibility of needing to proceed with hospice with her . CT scan in the ER was not any different than her previous CT scan June 27. Hypermetabolic mural wall thickening of the right lower quadrant suggestive of serial. She also has abdominal and retroperitoneal pelvic lymphadenopathy. Past Medical History Past Medical History (Chronic Problems): Chronic Problems (Last Reviewed 07/06/19 @ 15:[address] 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) C56.9, C80.0 Diabetes mellitus type II, controlled, with no complications E11.9 Cardiomyopathy due to chemotherapy I42.7, T45.1X5A Dyspnea (Inactive) R06.00 Allergies lisinopril Allergy (Verified 07/01/20 18:05) Other Home Medications: Ambulatory Orders Medication Instructions Recorded Simvastatin 20 mg PO QHS 06/19/18 olaparib 100 mg tablet 200 mg PO BID tab 02/23/19 glipizide 5 mg tablet 5 mg PO DAILY 12/14/19 magnesium oxide 400 mg (241.3 mg 400 mg PO BID #180 tab 04/04/20 magnesium) tablet Furosemide 40 mg PO BID 07/01/20 Ondansetron [Zofran Odt] 4 mg PO Q8H PRN PRN 07/01/20 Potassium Chloride [K-Dur] 20 meq PO DAILY 07/01/20 Sacubitril/Valsartan 24/26 mg 1 ea PO BID 07/01/20 [Entresto 24 mg-26 mg Tablet] Surgical History: Surgical History (Last Reviewed 07/03/20 @ 16:[address] Rex Alexandre MD) History of hysterectomy for cancer Z90.710, C80.1 History of left heart catheterization Onset Date: 06/21/18 Z98.890 Surgical History: - - Lipoma removed from her neck. Smoking Status: Never smoker Alcohol: None Drugs: None - *Family History Maternal Family History: Family History (Last Reviewed 07/06/19 @ 15:[address] Marc Ayoub MD) Mother Heart abnormality Sister Cancer Review of Systems Constitutional: Reports: Anorexia, Malaise Cardiovascular: Denies: Chest Pain, Chest Pressure, Chest Tightness, Palpitations Respiratory: Denies: Cough, Hemoptysis, Shortness of breath at rest, Shortness of breath upon exertion, Wheezing Gastrointestinal: Reports: Abdominal Pain, Nausea, Vomiting Genitourinary: Denies: Dysuria, Frequency, Hematuria, Urgency Patient Problems: Active and Suspected Problems (Last Reviewed 07/06/19 @ 15:[address] Marc Ayoub MD) Partial small bowel obstruction (Acute) - Physical Exam Vitals/I&O's: Vital Signs Temp Pulse Resp BP Pulse Ox 98.6 F 109 H 18 144/87 H 99 07/03/20 08:00 07/03/20 08:00 07/03/20 08:00 07/03/20 08:00 07/03/20 08:00 Oxygen Delivery Method Room Air Weight: 157 lb 13.616 oz Body Mass Index (BMI) 29.8 Intake and Output for Last 24 Hours 07/01/20 07/02/20 07/03/20 23:59 23:59 23:59 Intake Total 1643.75 / 1643.75 2222 / 2222 2296.66 / 2296.66 Output Total 800 / 1100 1425 / 1425 Balance 1643.75 / 1643.75 1422 / 1122 871.66 / 871.66 General: Alert, Oriented x3 Lungs: Clear to auscultation Cardiovascular: Regular rate, Regular Rhythm, No murmurs Abdomen: Obese - No rebound guarding or peritoneal signs are identified, Tender Laboratory Results 07/02/20 06:30: POC Glucose 161 H 07/02/20 16:40: POC Glucose 180 H 07/02/20 21:51: POC Glucose 152 H 07/03/20 05:35: WBC 4.7, RBC 2.88 L, Hgb 9.7 L, Hct 31.5 L, MCV 109.4 H, MCH 33.7 H, MCHC 30.8 L, RDW Std Deviation 73.9 H, RDW Coeff of Erika 18.3 H, Plt Count 198, MPV 11.0, Differential Comment SCANNED 07/03/20 05:35: Vitamin B12 679 07/03/20 05:35: Sodium 139, Potassium 3.1 L, Chloride 103, Carbon Dioxide 28.0, Anion Gap 8, BUN 16, Creatinine 0.94, Estim Creat Clear Calc 41.42, Est GFR (MDRD) Af Amer 76, Est GFR (MDRD) Non-Af 63, BUN/Creatinine Ratio 17.1, Glucose 195 H, Calcium 9.0, Total Bilirubin 3.80 H, AST 54 H, ALT 98 H, Alkaline Phosphatase 560 H, Total Protein 6.2 L, Albumin 2.3 L, Globulin 3.9, Albumin/Globulin Ratio 0.6 L, Folate 12.50 07/03/20 05:35: Magnesium 2.2 07/03/20 06:32: POC Glucose 175 H 07/03/20 11:31: POC Glucose 152 H Current Medications Calcium Carbonate (Tums) 500 - 1,000 mg PO Q6H PRN PRN PRN Reason: HEARTBURN OR INDIGESTION Last Admin: 07/02/20 01:03 Dose: 1,000 mg Documented by: Dextrose (D50w Syringe) 0 gm IV X1 PRN; Protocol PRN Reason: Hypoglycemia Glucagon () 1 mg IM .X1 PRN PRN Reason: Hypoglycemia Heparin Sodium (Porcine) (Heparin Na) 5,000 unit SC Q12 [facility] Last Admin: 07/03/20 10:31 Dose: 5,000 unit Documented by: Sodium Chloride () 1,000 mls @ 100 mls/hr IV .Q10H [facility] Last Admin: 07/03/20 14:41 Dose: 100 mls/hr Documented by: Insulin Human Lispro (Humalog Kwikpen (Bkc)) 0 unit SC ACHS [facility]; Protocol Last Admin: 07/03/20 11:43 Dose: Not Given Documented by: Melatonin (Melatonin) 3 mg PO QHS PRN PRN PRN Reason: INSOMNIA Morphine Sulfate () 4 mg IV Q3H PRN PRN PRN Reason: Pain Score 6-10/10 Last Admin: 07/02/20 11:51 Dose: 4 mg Documented by: Ondansetron HCl (Zofran) 8 mg IV Q6H PRN PRN PRN Reason: NAUSEA/VOMITING Last Admin: 07/03/20 05:01 Dose: 8 mg Documented by: Oxycodone HCl (Oxyir) 10 mg PO Q4H PRN PRN PRN Reason: Pain Score 4-5/10 Last Admin: 07/02/20 16:41 Dose: 10 mg Documented by: Phenol/Menthol (Chloraseptic (Bkc)) 5 spray MM Q2H PRN PRN PRN Reason: SORE THROAT Last Admin: 07/03/20 06:57 Dose: 5 spray Documented by: Prochlorperazine Edisylate (Compazine Iv) 10 mg IV Q6H PRN PRN PRN Reason: NAUSEA/VOMITING Last Admin: 07/03/20 00:56 Dose: 10 mg Documented by: Promethazine HCl (Phenergan) 12.5 mg IV Q4H PRN PRN PRN Reason: NAUSEA/VOMITING Last Admin: 07/03/20 02:55 Dose: 12.5 mg Documented by: Pyridoxine HCl (Vitamin B-6) 100 mg PO DAILY@0800 [facility] Last Admin: 07/03/20 11:44 Dose: Not Given Documented by: Sodium Chloride () 10 - 40 ml IV UD PRN PRN Reason: SALINE FLUSH Last Admin: 07/03/20 05:01 Dose: 10 ml Documented by: Assessment/Plan All Active Problems (Last Reviewed 07/06/19 @ 15:[address] Marc Ayoub MD) Partial small bowel obstruction (Acute) Malignant tumor of ureter (Acute) Orthostatic dizziness (Acute) Anticipate this partial small bowel obstruction will more than likely resolve with NG tube decompression. I have discussed with the family that if her abdominal pain increases significantly and she develops a white count she might need to have an exploratory laparotomy but that it would probably pose a significant risk to her and would only be palliative in nature. I also told him that this is probably something that I would not be able to do for her here and that she might have to go back up to the main campus. Office Visits / Consults: [id number] IP Consult L3
[2020-07-03 16:40] LABS: Bedside Glucose 167 mg/dL (70-110)
[2020-07-03 16:43] VITALS: BP 114/66; PULSE 107; RESP 18; TEMP 37.2; O2SAT 99
[2020-07-03 21:30] VITALS: BP 131/68; PULSE 84; RESP 16; TEMP 36.8; O2SAT 99
[2020-07-03 22:30] LABS: Bedside Glucose 163 mg/dL (70-110)
[2020-07-04] MEDS: 0.9% Normal Saline 1,000 ML 100 ML IV ×3 (00:43→20:42)
[2020-07-04 03:15] VITALS: BP 130/64; PULSE 106; RESP 16; TEMP 36.6; O2SAT 98
[2020-07-04] MEDS: Insulin Lispro 100 UNIT/ML INSULN.PEN SC (06:31)
[2020-07-04 06:40] LABS: Bedside Glucose 154 mg/dL (70-110)
[2020-07-04 08:40] VITALS: BP 132/51; PULSE 103; RESP 18; TEMP 36.8; O2SAT 95
[2020-07-04 08:42] LABS: Absolute Lymphocyte Count 0.33 X10^3/uL (0.83-4.51); Basophil# 0.01 X10^3/uL; Basophil% 0.4 % (0-1); Eosinophil# 0.02 X10^3/uL; Eosinophils% 0.7 % (0-5); Hematocrit 30.9 % (37-47); Hemoglobin 9.5 g/dL (12.0-15.0); Lymphocyte # 0.33 X10^3/ul (4.0); Lymphocyte % 12.2 % (19-41); Mean Corp Hgb Conc 30.7 g/dL (32-36); Mean Corpuscular Hgb 33.5 pg (27.0-32.0); Mean Corpuscular Volume 108.8 fL (81-99); Mean Platelet Vol. 13.4 fl (6.2-12.0); Monocyte# 0.35 X10^3/uL; Monocyte% 12.9 % (0-10); NRBC Flagged by Analyzer 0 % (0-5); Neutrophil # 1.98 X10^3/uL (2.7-7.7); Neutrophil % 73.1 % (47-70); POSITIVE COUNT YES; POSITIVE DIFFERENTIAL YES; POSITIVE MORPHOLOGY YES; RBC Distribution Width CV 18.2 % (11.6-14.6); Red Blood Count 2.84 M/mm3 (4.2-5.4); White Blood Count 2.7 K/mm3 (4.4-11.0)
[2020-07-04 09:00] LABS: Anion Gap 5 (5-15); BUN 20 mg/dL (7-18); Calcium,Total 8.9 mg/dL (8.5-10.1); Chloride 105 mmol/L (98-107); Creatinine, Serum 0.91 mg/dL (0.55-1.02); EST Glomerular Filtration Rate 65 mL/min (>60); Est Glom Filt Rate - Afr Amer 78 mL/min (>60); Estimated Creatinine Clearance 42.79 ml/min; Glucose 142 mg/dL (74-106); Potassium 3.2 mmol/L (3.5-5.1); Sodium Level 140 mmol/L (136-145)
[2020-07-04 09:10] LABS: Differential Comment SCANNED; Differential Indicated SCAN CRITERIA MET
[2020-07-04 09:11] LABS: Anisocytosis 2+; Macrocytosis 2+; Microcytosis 1+; Ovalocyte 1+; Platelet Estimate ADEQUATE (ADEQ); Tear Drop Cell 1+
[2020-07-04 09:12] LABS: Stomatocyte 1+
[2020-07-04] MEDS: proCHLORPERazine 10 MG/2 ML Vial IV (10:14)
[2020-07-04] MEDS: Morphine 4 MG/ML Syringe IV ×2 (10:16→19:16)
--- NOTE | 2020-07-04 10:43 | PN_ITS ---
<DonavanAparna PERSONALIZED LIVING ASSISTANT - Last Filed: 07/04/20 10:56> Patient Problems: Active and Suspected Problems (Last Reviewed 07/03/20 @ 16:[address] Rex lowry MD) Partial small bowel obstruction (Acute) Subjective: Patient seen and examined. NG tube clamped this morning and she denies nausea, vomiting. States she had large bowel movement yesterday and abdominal pain improved. Complains of gas. - Physical Exam Vitals/I&O's: Vital Signs Temp Pulse Resp BP Pulse Ox 98.3 F 103 H 18 132/51 H 95 07/04/20 08:40 07/04/20 08:40 07/04/20 08:40 07/04/20 08:40 07/04/20 08:40 Oxygen Delivery Method Room Air Weight: 157 lb 13.616 oz Body Mass Index (BMI) 29.8 Intake and Output for Last 24 Hours 07/02/20 07/03/20 07/04/20 23:59 23:59 23:59 Intake Total 2222 / 2222 2946.66 / 2946.66 2078.33 / 2078.33 Output Total 800 / 1100 2375 / 2375 1300 / 1300 Balance 1422 / 1122 571.66 / 571.66 778.33 / 778.33 General: Alert, Oriented x3, Cooperative HEENT: Atraumatic, PERRLA, EOMI, Normocephalic Neck: Supple, No JVD, Negative Carotid Bruits Lungs: Clear to auscultation, Diminished Cardiovascular: Regular Rhythm, Tachycardic Abdomen: Bowel Sounds Present, Soft, Passing Flatus, Tender Extremities: No clubbing, No cyanosis, No edema, Capillary Refill Less than 3 Seconds Skin: No rashes, No breakdown Musculoskeletal: No Tenderness to Palpation of Joints or Extremities Neurological: Cranial nerves II-XII grossly intact, Neuro grossly intact Psych/Mental Status: Normal Affect, Appropriate Laboratory Results 07/03/20 11:31: POC Glucose 152 H 07/03/20 16:31: POC Glucose 167 H 07/03/20 21:06: POC Glucose 163 H 07/04/20 06:20: POC Glucose 154 H 07/04/20 08:26: WBC 2.7 L, RBC 2.84 L, Hgb 9.5 L, Hct 30.9 L, MCV 108.8 H, MCH 33.5 H, MCHC 30.7 L, RDW Std Deviation 73.0 H, RDW Coeff of Erika 18.2 H, Plt Count , MPV 13.4 H, Immature Gran % (Auto) 0.700, Neut % (Auto) 73.1 H, Lymph % (Auto) 12.2 L, [place] % (Auto) 12.9 H, Eos % (Auto) 0.7, Baso % (Auto) 0.4, Absolute Neuts (auto) 2.0, Absolute Lymphs (auto) 0.33 L, Nucleated RBC % 0, Differential Comment SCANNED, Diff Path Review May foll, Platelet Estimate ADEQUATE, Anisocytosis 2+, Microcytosis 1+, Macrocytosis 2+, Tear Drop Cells 1+, Ovalocytes 1+, Stomatocytes 1+ 07/04/20 08:26: Sodium 140, Potassium 3.2 L, Chloride 105, Carbon Dioxide 30.0, Anion Gap 5, BUN 20 H, Creatinine 0.91, Estim Creat Clear Calc 42.79, Est GFR (MDRD) Af Amer 78, Est GFR (MDRD) Non-Af 65, BUN/Creatinine Ratio 22.0 H, Glucose 142 H, Calcium 8.9 Current Medications Calcium Carbonate (Tums) 500 - 1,000 mg PO Q6H PRN PRN PRN Reason: HEARTBURN OR INDIGESTION Last Admin: 07/02/20 01:03 Dose: 1,000 mg Documented by: Dextrose (D50w Syringe) 0 gm IV X1 PRN; Protocol PRN Reason: Hypoglycemia Glucagon () 1 mg IM .X1 PRN PRN Reason: Hypoglycemia Heparin Sodium (Porcine) (Heparin Na) 5,000 unit SC Q12 [facility] Last Admin: 07/03/20 21:09 Dose: 5,000 unit Documented by: Sodium Chloride () 1,000 mls @ 100 mls/hr IV .Q10H [facility] Last Admin: 07/04/20 10:18 Dose: 100 mls/hr Documented by: Insulin Human Lispro (Humalog Kwikpen (Bkc)) 0 unit SC ACHS [facility]; Protocol Last Admin: 07/04/20 06:31 Dose: 2 u Documented by: Melatonin (Melatonin) 3 mg PO QHS PRN PRN PRN Reason: INSOMNIA Morphine Sulfate () 4 mg IV Q3H PRN PRN PRN Reason: Pain Score 6-10/10 Last Admin: 07/04/20 10:16 Dose: 4 mg Documented by: Ondansetron HCl (Zofran) 8 mg IV Q6H PRN PRN PRN Reason: NAUSEA/VOMITING Last Admin: 07/03/20 05:01 Dose: 8 mg Documented by: Oxycodone HCl (Oxyir) 10 mg PO Q4H PRN PRN PRN Reason: Pain Score 4-5/10 Last Admin: 07/02/20 16:41 Dose: 10 mg Documented by: Phenol/Menthol (Chloraseptic (Bkc)) 5 spray MM Q2H PRN PRN PRN Reason: SORE THROAT Last Admin: 07/03/20 06:57 Dose: 5 spray Documented by: Prochlorperazine Edisylate (Compazine Iv) 10 mg IV Q6H PRN PRN PRN Reason: NAUSEA/VOMITING Last Admin: 07/04/20 10:14 Dose: 10 mg Documented by: Promethazine HCl (Phenergan) 12.5 mg IV Q4H PRN PRN PRN Reason: NAUSEA/VOMITING Last Admin: 07/03/20 02:55 Dose: 12.5 mg Documented by: Pyridoxine HCl (Vitamin B-6) 100 mg PO DAILY@0800 [facility] Last Admin: 07/04/20 08:18 Dose: Not Given Documented by: Sodium Chloride () 10 - 40 ml IV UD PRN PRN Reason: SALINE FLUSH Last Admin: 07/03/20 05:01 Dose: 10 ml Documented by: Medical Necessity - Tobacco Use Smoking Status: Never smoker Assessment/Plan All Active Problems (Last Reviewed 07/03/20 @ 16:[address] Rex Alexandre MD) Partial small bowel obstruction (Acute) Malignant tumor of ureter (Acute) Orthostatic dizziness (Acute) 1. 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 No intestinal obstruction. Severe biliary dilation, probable obstruction. Possibility of pancreatic lesion versus intraductal abnormality. PRN pain regimen. IV fluids. PRN antiemetics. NG in place. Dr. Michael consulted. Recommended hospice/palliative. Patient plans for home with palliative medicine. NG clamped this morning. Plan to remove later today if no further N/V and monitor overnight. 2. Acute kidney injury-secondary to dehydration from poor oral intake. Resolved. Trend BMP. 3. Severe protein calorie malnutrition-as evidenced by poor oral intake. Recent 20 pound weight loss. Dietitian consult. 4. History of chemotherapy induced cardiomyopathy-echocardiogram 11/05/2019 demonstrates an EF of 51%, stage I diastolic dysfunction. Previous EF June 2018 15%. 5. Hypertension- stable, Entresto on hold. PRN hydralazine. Hold Lasix. 6. Hyperlipidemia-continue statin. 7. Type 2 diabetes mellitus-continue glipizide. Accu-Cheks with sliding scale insulin. DVT prophylaxis-heparin subcu Discharge planning: Home with palliative pending symptom improvement. This patient was seen by RAMANDEEP Montes De Oca under the supervision of Dr. Eid. <Bin Eid - Last Filed: 07/04/20 14:14> Subjective: Feeling better. +BM and flatus. - Physical Exam Vitals/I&O's: Vital Signs Temp Pulse Resp BP Pulse Ox 36.8 C 103 H 18 132/51 H 95 07/04/20 08:40 07/04/20 08:40 07/04/20 08:40 07/04/20 08:40 07/04/20 08:40 Oxygen Delivery Method Room Air Weight: 71.6 kg Body Mass Index (BMI) 29.8 Intake and Output for Last 24 Hours 07/02/20 07/03/20 07/04/20 23:59 23:59 23:59 Intake Total 2222 / 2222 2946.66 / 2946.66 2418.33 / 2418.33 Output Total 800 / 1100 2375 / 2375 1600 / 1600 Balance 1422 / 1122 571.66 / 571.66 818.33 / 818.33 General: Alert, Cooperative HEENT: Atraumatic, Normocephalic Lungs: Clear to auscultation, Diminished Cardiovascular: Regular Rhythm, Tachycardic Abdomen: Bowel Sounds Present, Soft, Tender Extremities: No clubbing, No cyanosis, No edema, Capillary Refill Less than 3 Seconds Skin: No rashes, No breakdown Laboratory Results 07/03/20 16:31: POC Glucose 167 H 07/03/20 21:06: POC Glucose 163 H 07/04/20 06:20: POC Glucose 154 H 07/04/20 08:26: WBC 2.7 L, RBC 2.84 L, Hgb 9.5 L, Hct 30.9 L, MCV 108.8 H, MCH 33.5 H, MCHC 30.7 L, RDW Std Deviation 73.0 H, RDW Coeff of Erika 18.2 H, Plt Count , MPV 13.4 H, Immature Gran % (Auto) 0.700, Neut % (Auto) 73.1 H, Lymph % (Auto) 12.2 L, [place] % (Auto) 12.9 H, Eos % (Auto) 0.7, Baso % (Auto) 0.4, Absolute Neuts (auto) 2.0, Absolute Lymphs (auto) 0.33 L, Nucleated RBC % 0, Differential Comment SCANNED, Diff Path Review May foll, Platelet Estimate ADEQUATE, Anisocytosis 2+, Microcytosis 1+, Macrocytosis 2+, Tear Drop Cells 1+, Ovalocytes 1+, Stomatocytes 1+ 07/04/20 08:26: Sodium 140, Potassium 3.2 L, Chloride 105, Carbon Dioxide 30.0, Anion Gap 5, BUN 20 H, Creatinine 0.91, Estim Creat Clear Calc 42.79, Est GFR (MDRD) Af Amer 78, Est GFR (MDRD) Non-Af 65, BUN/Creatinine Ratio 22.0 H, Glucose 142 H, Calcium 8.9 07/04/20 11:08: POC Glucose 132 H Current Medications Calcium Carbonate (Tums) 500 - 1,000 mg PO Q6H PRN PRN PRN Reason: HEARTBURN OR INDIGESTION Last Admin: 07/02/20 01:03 Dose: 1,000 mg Documented by: Dextrose (D50w Syringe) 0 gm IV X1 PRN; Protocol PRN Reason: Hypoglycemia Glucagon () 1 mg IM .X1 PRN PRN Reason: Hypoglycemia Heparin Sodium (Porcine) (Heparin Na) 5,000 unit SC Q12 [facility] Last Admin: 07/04/20 11:10 Dose: Not Given Documented by: Sodium Chloride () 1,000 mls @ 100 mls/hr IV .Q10H [facility] Last Admin: 07/04/20 10:18 Dose: 100 mls/hr Documented by: Insulin Human Lispro (Humalog Kwikpen (Bkc)) 0 unit SC ACHS [facility]; Protocol Last Admin: 07/04/20 11:10 Dose: Not Given Documented by: Melatonin (Melatonin) 3 mg PO QHS PRN PRN PRN Reason: INSOMNIA Morphine Sulfate () 4 mg IV Q3H PRN PRN PRN Reason: Pain Score 6-10/10 Last Admin: 07/04/20 10:16 Dose: 4 mg Documented by: Ondansetron HCl (Zofran) 8 mg IV Q6H PRN PRN PRN Reason: NAUSEA/VOMITING Last Admin: 07/03/20 05:01 Dose: 8 mg Documented by: Oxycodone HCl (Oxyir) 10 mg PO Q4H PRN PRN PRN Reason: Pain Score 4-5/10 Last Admin: 07/02/20 16:41 Dose: 10 mg Documented by: Phenol/Menthol (Chloraseptic (Bkc)) 5 spray MM Q2H PRN PRN PRN Reason: SORE THROAT Last Admin: 07/03/20 06:57 Dose: 5 spray Documented by: Prochlorperazine Edisylate (Compazine Iv) 10 mg IV Q6H PRN PRN PRN Reason: NAUSEA/VOMITING Last Admin: 07/04/20 10:14 Dose: 10 mg Documented by: Promethazine HCl (Phenergan) 12.5 mg IV Q4H PRN PRN PRN Reason: NAUSEA/VOMITING Last Admin: 07/03/20 02:55 Dose: 12.5 mg Documented by: Pyridoxine HCl (Vitamin B-6) 100 mg PO DAILY@0800 [facility] Last Admin: 07/04/20 08:18 Dose: Not Given Documented by: Simethicone (Mylicon) 80 mg PO TIDPC PRN PRN Reason: Gas Sodium Chloride () 10 - 40 ml IV UD PRN PRN Reason: SALINE FLUSH Last Admin: 07/03/20 05:01 Dose: 10 ml Documented by: Assessment/Plan Patient seen and examined independently. Data reviewed. I agree with the above note by the nurse practitioner. 1. Instructive abdominal pain: Secondary to stage III fallopian tube malignancy but also complicated by small bowel obstruction. Clinically, patient seems to be improving from the small bowel obstruction. NG tube was placed yesterday and will clamp the NG tube today. Observe for response and possibly could have it removed later on today. General surgery following no urgent need for surgery at this time. Inpatient E&M: 21442 Subs Hosp L2
[2020-07-04 11:16] LABS: Bedside Glucose 132 mg/dL (70-110)
[2020-07-04] MEDS: Potassium Chloride 10mEq/100mL 10 MEQ/100 ML IV.SOLN. 100 MEQ IV BOLUS ×3 (12:29→14:54)
--- NOTE | 2020-07-04 14:39 | PCM.PN.SRG ---
Patient Problems: Active and Suspected Problems (Last Reviewed 07/03/20 @ 16:[address] Rex Alexandre MD) Partial small bowel obstruction (Acute) Subjective: Patient had a rather large bowel movement was passing gas yesterday felt fairly soft. Starting to feel more distended again today. Objective: Patient is still distended - Physical Exam Vitals/I&O's: Vital Signs Temp Pulse Resp BP Pulse Ox 98.3 F 103 H 18 132/51 H 95 07/04/20 08:40 07/04/20 08:40 07/04/20 08:40 07/04/20 08:40 07/04/20 08:40 Oxygen Delivery Method Room Air Weight: 157 lb 13.616 oz Body Mass Index (BMI) 29.8 Intake and Output for Last 24 Hours 07/02/20 07/03/20 07/04/20 23:59 23:59 23:59 Intake Total 2222 / 2222 2946.66 / 2946.66 2418.33 / 2418.33 Output Total 800 / 1100 2375 / 2375 1600 / 1600 Balance 1422 / 1122 571.66 / 571.66 818.33 / 818.33 Laboratory Results 07/03/20 16:31: POC Glucose 167 H 07/03/20 21:06: POC Glucose 163 H 07/04/20 06:20: POC Glucose 154 H 07/04/20 08:26: WBC 2.7 L, RBC 2.84 L, Hgb 9.5 L, Hct 30.9 L, MCV 108.8 H, MCH 33.5 H, MCHC 30.7 L, RDW Std Deviation 73.0 H, RDW Coeff of Erika 18.2 H, Plt Count , MPV 13.4 H, Immature Gran % (Auto) 0.700, Neut % (Auto) 73.1 H, Lymph % (Auto) 12.2 L, [place] % (Auto) 12.9 H, Eos % (Auto) 0.7, Baso % (Auto) 0.4, Absolute Neuts (auto) 2.0, Absolute Lymphs (auto) 0.33 L, Nucleated RBC % 0, Differential Comment SCANNED, Diff Path Review May , Platelet Estimate ADEQUATE, Anisocytosis 2+, Microcytosis 1+, Macrocytosis 2+, Tear Drop Cells 1+, Ovalocytes 1+, Stomatocytes 1+ 07/04/20 08:26: Sodium 140, Potassium 3.2 L, Chloride 105, Carbon Dioxide 30.0, Anion Gap 5, BUN 20 H, Creatinine 0.91, Estim Creat Clear Calc 42.79, Est GFR (MDRD) Af Amer 78, Est GFR (MDRD) Non-Af 65, BUN/Creatinine Ratio 22.0 H, Glucose 142 H, Calcium 8.9 07/04/20 11:08: POC Glucose 132 H Current Medications Calcium Carbonate (Tums) 500 - 1,000 mg PO Q6H PRN PRN PRN Reason: HEARTBURN OR INDIGESTION Last Admin: 07/02/20 01:03 Dose: 1,000 mg Documented by: Dextrose (D50w Syringe) 0 gm IV X1 PRN; Protocol PRN Reason: Hypoglycemia Glucagon () 1 mg IM .X1 PRN PRN Reason: Hypoglycemia Heparin Sodium (Porcine) (Heparin Na) 5,000 unit SC Q12 [facility] Last Admin: 07/04/20 11:10 Dose: Not Given Documented by: Sodium Chloride () 1,000 mls @ 100 mls/hr IV .Q10H [facility] Last Admin: 07/04/20 10:18 Dose: 100 mls/hr Documented by: Insulin Human Lispro (Humalog Kwikpen (Bkc)) 0 unit SC ACHS [facility]; Protocol Last Admin: 07/04/20 11:10 Dose: Not Given Documented by: Melatonin (Melatonin) 3 mg PO QHS PRN PRN PRN Reason: INSOMNIA Morphine Sulfate () 4 mg IV Q3H PRN PRN PRN Reason: Pain Score 6-10/10 Last Admin: 07/04/20 10:16 Dose: 4 mg Documented by: Ondansetron HCl (Zofran) 8 mg IV Q6H PRN PRN PRN Reason: NAUSEA/VOMITING Last Admin: 07/03/20 05:01 Dose: 8 mg Documented by: Oxycodone HCl (Oxyir) 10 mg PO Q4H PRN PRN PRN Reason: Pain Score 4-5/10 Last Admin: 07/02/20 16:41 Dose: 10 mg Documented by: Phenol/Menthol (Chloraseptic (Bkc)) 5 spray MM Q2H PRN PRN PRN Reason: SORE THROAT Last Admin: 07/03/20 06:57 Dose: 5 spray Documented by: Prochlorperazine Edisylate (Compazine Iv) 10 mg IV Q6H PRN PRN PRN Reason: NAUSEA/VOMITING Last Admin: 07/04/20 10:14 Dose: 10 mg Documented by: Promethazine HCl (Phenergan) 12.5 mg IV Q4H PRN PRN PRN Reason: NAUSEA/VOMITING Last Admin: 07/03/20 02:55 Dose: 12.5 mg Documented by: Pyridoxine HCl (Vitamin B-6) 100 mg PO DAILY@0800 [facility] Last Admin: 07/04/20 08:18 Dose: Not Given Documented by: Simethicone (Mylicon) 80 mg PO TIDPC PRN PRN Reason: Gas Sodium Chloride () 10 - 40 ml IV UD PRN PRN Reason: SALINE FLUSH Last Admin: 07/03/20 05:01 Dose: 10 ml Documented by: Medical Necessity - Tobacco Use Smoking Status: Never smoker Assessment/Plan All Active Problems (Last Reviewed 07/03/20 @ 16:[address] Rex Alexandre MD) Partial small bowel obstruction (Acute) Malignant tumor of ureter (Acute) Orthostatic dizziness (Acute) Doubt seriously if we are ready to remove this NG tube as of yet.
[2020-07-04] MEDS: Ondansetron 4 MG/2 ML Vial 8 MG IV (14:41)
[2020-07-04 14:55] VITALS: BP 127/47; PULSE 107; RESP 16; TEMP 36.8; O2SAT 93
[2020-07-04 17:06] LABS: Bedside Glucose 127 mg/dL (70-110)
[2020-07-04 20:55] VITALS: BP 139/73; PULSE 99; RESP 18; TEMP 36.8; O2SAT 99
[2020-07-04] MEDS: Heparin Injection (Vial) 5,000 UNIT/ML VIAL 5000 UNIT SC (21:29)
[2020-07-04 22:01] LABS: Bedside Glucose 133 mg/dL (70-110)
[2020-07-05 02:43] VITALS: BP 152/69; PULSE 98; RESP 16; TEMP 36.6; O2SAT 97
[2020-07-05] MEDS: Morphine 4 MG/ML Syringe IV ×3 (04:23→23:51)
[2020-07-05 05:25] LABS: Bedside Glucose 137 mg/dL (70-110)
[2020-07-05 06:10] LABS: Hematocrit 30.4 % (37-47); Hemoglobin 8.9 g/dL (12.0-15.0); Mean Corp Hgb Conc 29.3 g/dL (32-36); Mean Corpuscular Hgb 33.5 pg (27.0-32.0); Mean Corpuscular Volume 114.3 fL (81-99); Mean Platelet Vol. 11.5 fl (6.2-12.0); POSITIVE MORPHOLOGY YES; Platelet Count 165 K/mm3 (150-450); RBC Distribution Width CV 18.1 % (11.6-14.6); Red Blood Count 2.66 M/mm3 (4.2-5.4); White Blood Count 2.8 K/mm3 (4.4-11.0)
[2020-07-05 06:39] LABS: Anion Gap 5 (5-15); BUN 18 mg/dL (7-18); BUN/Creat Ratio 24.7 RATIO (10-20); Calcium,Total 8.6 mg/dL (8.5-10.1); Chloride 108 mmol/L (98-107); Creatinine, Serum 0.73 mg/dL (0.55-1.02); EST Glomerular Filtration Rate 84 mL/min (>60); Est Glom Filt Rate - Afr Amer 101 mL/min (>60); Estimated Creatinine Clearance 38.94 ml/min; Glucose 130 mg/dL (74-106); Potassium 3.6 mmol/L (3.5-5.1); Sodium Level 144 mmol/L (136-145)
[2020-07-05 06:41] LABS: Bedside Glucose 137 mg/dL (70-110)
[2020-07-05] MEDS: 0.9% Normal Saline 1,000 ML 100 ML IV ×2 (06:42→16:57)
[2020-07-05 06:49] LABS: Scan Indicated on CBC? Y/N YES- FLAGS NOTED
[2020-07-05 06:59] LABS: Differential Comment SCANNED
[2020-07-05 08:10] VITALS: BP 146/54; PULSE 105; RESP 16; TEMP 37.7; O2SAT 95
--- NOTE | 2020-07-05 09:09 | PN.SURG_ITS ---
Patient Problems: Active and Suspected Problems (Last Reviewed 07/03/20 @ 16:[address] Rex Alexandre MD) Partial small bowel obstruction (Acute) Subjective: Patient subjectively feels better. Passing flatus. Objective: Abdomen really is not soft as I would anticipate somebody who has resolving partial bowel obstruction. - Physical Exam Vitals/I&O's: Vital Signs Temp Pulse Resp BP Pulse Ox 99.8 F H 105 H 16 146/54 H 95 07/05/20 08:10 07/05/20 08:10 07/05/20 08:10 07/05/20 08:10 07/05/20 08:10 Oxygen Delivery Method Room Air Weight: 157 lb 13.616 oz Body Mass Index (BMI) 29.8 Intake and Output for Last 24 Hours 07/03/20 07/04/20 07/05/20 23:59 23:59 23:59 Intake Total 2946.66 / 2946.66 3818.33 / 3818.33 1000 / 1000 Output Total 2375 / 2375 1950 / 2400 750 / 750 Balance 571.66 / 571.66 1868.33 / 1418.33 250 / 250 Laboratory Results 07/04/20 08:26: WBC 2.7 L, RBC 2.84 L, Hgb 9.5 L, Hct 30.9 L, MCV 108.8 H, MCH 33.5 H, MCHC 30.7 L, RDW Std Deviation 73.0 H, RDW Coeff of Erika 18.2 H, Plt Count , MPV 13.4 H, Immature Gran % (Auto) 0.700, Neut % (Auto) 73.1 H, Lymph % (Auto) 12.2 L, [place] % (Auto) 12.9 H, Eos % (Auto) 0.7, Baso % (Auto) 0.4, Absolute Neuts (auto) 2.0, Absolute Lymphs (auto) 0.33 L, Nucleated RBC % 0, Differential Comment SCANNED, Diff Path Review May foll, Platelet Estimate ADEQUATE, Anisocytosis 2+, Microcytosis 1+, Macrocytosis 2+, Tear Drop Cells 1+, Ovalocytes 1+, Stomatocytes 1+ 07/04/20 11:08: POC Glucose 132 H 07/04/20 17:01: POC Glucose 127 H 07/04/20 21:28: POC Glucose 133 H 07/05/20 05:19: POC Glucose 137 H 07/05/20 05:45: WBC 2.8 L, RBC 2.66 L, Hgb 8.9 L, Hct 30.4 L, MCV 114.3 H D, MCH 33.5 H, MCHC 29.3 L, RDW Std Deviation 77.0 H, RDW Coeff of Erika 18.1 H, Plt Count 165, MPV 11.5, Differential Comment SCANNED 07/05/20 05:45: Sodium 144, Potassium 3.6, Chloride 108 H, Carbon Dioxide 31.0, Anion Gap 5, BUN 18, Creatinine 0.73, Estim Creat Clear Calc 38.94, Est GFR (MDRD) Af Amer 101, Est GFR (MDRD) Non-Af 84, BUN/Creatinine Ratio 24.7 H, Glucose 130 H, Calcium 8.6 07/05/20 06:28: POC Glucose 137 H Current Medications Calcium Carbonate (Tums) 500 - 1,000 mg PO Q6H PRN PRN PRN Reason: HEARTBURN OR INDIGESTION Last Admin: 07/02/20 01:03 Dose: 1,000 mg Documented by: Dextrose (D50w Syringe) 0 gm IV X1 PRN; Protocol PRN Reason: Hypoglycemia Glucagon () 1 mg IM .X1 PRN PRN Reason: Hypoglycemia Heparin Sodium (Porcine) (Heparin Na) 5,000 unit SC Q12 [facility] Last Admin: 07/04/20 21:29 Dose: 5,000 unit Documented by: Sodium Chloride () 1,000 mls @ 100 mls/hr IV .Q10H [facility] Last Admin: 07/05/20 06:42 Dose: 100 mls/hr Documented by: Insulin Human Lispro (Humalog Kwikpen (Bkc)) 0 unit SC ACHS [facility]; Protocol Last Admin: 07/05/20 06:43 Dose: Not Given Documented by: Melatonin (Melatonin) 3 mg PO QHS PRN PRN PRN Reason: INSOMNIA Morphine Sulfate () 4 mg IV Q3H PRN PRN PRN Reason: Pain Score 6-10/10 Last Admin: 07/05/20 04:23 Dose: 4 mg Documented by: Ondansetron HCl (Zofran) 8 mg IV Q6H PRN PRN PRN Reason: NAUSEA/VOMITING Last Admin: 07/04/20 14:41 Dose: 8 mg Documented by: Oxycodone HCl (Oxyir) 10 mg PO Q4H PRN PRN PRN Reason: Pain Score 4-5/10 Last Admin: 07/02/20 16:41 Dose: 10 mg Documented by: Phenol/Menthol (Chloraseptic (Bkc)) 5 spray MM Q2H PRN PRN PRN Reason: SORE THROAT Last Admin: 07/03/20 06:57 Dose: 5 spray Documented by: Prochlorperazine Edisylate (Compazine Iv) 10 mg IV Q6H PRN PRN PRN Reason: NAUSEA/VOMITING Last Admin: 07/04/20 10:14 Dose: 10 mg Documented by: Promethazine HCl (Phenergan) 12.5 mg IV Q4H PRN PRN PRN Reason: NAUSEA/VOMITING Last Admin: 07/03/20 02:55 Dose: 12.5 mg Documented by: Pyridoxine HCl (Vitamin B-6) 100 mg PO DAILY@0800 [facility] Last Admin: 07/05/20 08:16 Dose: Not Given Documented by: Simethicone (Mylicon) 80 mg PO TIDPC PRN PRN Reason: Gas Sodium Chloride () 10 - 40 ml IV UD PRN PRN Reason: SALINE FLUSH Last Admin: 07/03/20 05:01 Dose: 10 ml Documented by: Medical Necessity - Tobacco Use Smoking Status: Never smoker Assessment/Plan All Active Problems (Last Reviewed 07/03/20 @ 16:[address] Rex Alexandre MD) Partial small bowel obstruction (Acute) Malignant tumor of ureter (Acute) Orthostatic dizziness (Acute) If tolerates NG tube decompression would remove it.
[2020-07-05] MEDS: Heparin Injection (Vial) 5,000 UNIT/ML VIAL 5000 UNIT SC ×2 (09:55→21:23)
[2020-07-05] MEDS: oxyCODONE 5 MG Tablet 10 MG PO (11:54)
--- NOTE | 2020-07-05 11:54 | PN_ITS ---
Patient Problems: Active and Suspected Problems (Last Reviewed 07/03/20 @ 16:[address] Rex Alexandre MD) Partial small bowel obstruction (Acute) Reason for Visit: SBO Subjective: +Flatus. Abdomen feeling better. Vitals/I&O's: Vital Signs Temp Pulse Resp BP Pulse Ox 37.7 C H 105 H 16 146/54 H 95 07/05/20 08:10 07/05/20 08:10 07/05/20 08:10 07/05/20 08:10 07/05/20 08:10 Oxygen Delivery Method Room Air Weight: 71.6 kg Body Mass Index (BMI) 29.8 Intake and Output for Last 24 Hours 07/03/20 07/04/20 07/05/20 23:59 23:59 23:59 Intake Total 2946.66 / 2946.66 3818.33 / 3818.33 1000 / 1000 Output Total 2375 / 2375 1950 / 2400 750 / 750 Balance 571.66 / 571.66 1868.33 / 1418.33 250 / 250 General: Alert, No apparent distress HEENT: Atraumatic, Normocephalic Neck: No Nodes, Thyroid Normal Size and Texture Lungs: Clear to auscultation, Normal air movement, No rhonchi, No wheeze Cardiovascular: Regular rate, Regular Rhythm, Normal S1, Normal S2, No murmurs Abdomen: Soft, Non Tender, No Hepato-splenomegaly, Hypoactive Bowel Sounds, Distended Extremities: No edema, No Calf Tenderness Psych/Mental Status: Normal Affect, Appropriate Laboratory Results 07/04/20 17:01: POC Glucose 127 H 07/04/20 21:28: POC Glucose 133 H 07/05/20 05:19: POC Glucose 137 H 07/05/20 05:45: WBC 2.8 L, RBC 2.66 L, Hgb 8.9 L, Hct 30.4 L, MCV 114.3 H D, MCH 33.5 H, MCHC 29.3 L, RDW Std Deviation 77.0 H, RDW Coeff of Erika 18.1 H, Plt Count 165, MPV 11.5, Differential Comment SCANNED 07/05/20 05:45: Sodium 144, Potassium 3.6, Chloride 108 H, Carbon Dioxide 31.0, Anion Gap 5, BUN 18, Creatinine 0.73, Estim Creat Clear Calc 38.94, Est GFR (MDRD) Af Amer 101, Est GFR (MDRD) Non-Af 84, BUN/Creatinine Ratio 24.7 H, Glucose 130 H, Calcium 8.6 07/05/20 06:28: POC Glucose 137 H Current Medications Calcium Carbonate (Tums) 500 - 1,000 mg PO Q6H PRN PRN PRN Reason: HEARTBURN OR INDIGESTION Last Admin: 07/02/20 01:03 Dose: 1,000 mg Documented by: Dextrose (D50w Syringe) 0 gm IV X1 PRN; Protocol PRN Reason: Hypoglycemia Glucagon () 1 mg IM .X1 PRN PRN Reason: Hypoglycemia Heparin Sodium (Porcine) (Heparin Na) 5,000 unit SC Q12 [facility] Last Admin: 07/05/20 09:55 Dose: 5,000 unit Documented by: Sodium Chloride () 1,000 mls @ 100 mls/hr IV .Q10H [facility] Last Admin: 07/05/20 06:42 Dose: 100 mls/hr Documented by: Insulin Human Lispro (Humalog Kwikpen (Bkc)) 0 unit SC ACHS [facility]; Protocol Last Admin: 07/05/20 06:43 Dose: Not Given Documented by: Melatonin (Melatonin) 3 mg PO QHS PRN PRN PRN Reason: INSOMNIA Morphine Sulfate () 4 mg IV Q3H PRN PRN PRN Reason: Pain Score 6-10/10 Last Admin: 07/05/20 04:23 Dose: 4 mg Documented by: Ondansetron HCl (Zofran) 8 mg IV Q6H PRN PRN PRN Reason: NAUSEA/VOMITING Last Admin: 07/04/20 14:41 Dose: 8 mg Documented by: Oxycodone HCl (Oxyir) 10 mg PO Q4H PRN PRN PRN Reason: Pain Score 4-5/10 Last Admin: 07/02/20 16:41 Dose: 10 mg Documented by: Phenol/Menthol (Chloraseptic (Bkc)) 5 spray MM Q2H PRN PRN PRN Reason: SORE THROAT Last Admin: 07/03/20 06:57 Dose: 5 spray Documented by: Prochlorperazine Edisylate (Compazine Iv) 10 mg IV Q6H PRN PRN PRN Reason: NAUSEA/VOMITING Last Admin: 07/04/20 10:14 Dose: 10 mg Documented by: Promethazine HCl (Phenergan) 12.5 mg IV Q4H PRN PRN PRN Reason: NAUSEA/VOMITING Last Admin: 07/03/20 02:55 Dose: 12.5 mg Documented by: Pyridoxine HCl (Vitamin B-6) 100 mg PO DAILY@0800 [facility] Last Admin: 07/05/20 08:16 Dose: Not Given Documented by: Simethicone (Mylicon) 80 mg PO TIDPC PRN PRN Reason: Gas Sodium Chloride () 10 - 40 ml IV UD PRN PRN Reason: SALINE FLUSH Last Admin: 07/03/20 05:01 Dose: 10 ml Documented by: STROKE Vital Signs/Narrative: Vital Signs Temp Pulse Resp BP Pulse Ox 07/05/20 08:10 37.7 C H 105 H 16 146/54 H 95 Medical Necessity - Tobacco Use Smoking Status: Never smoker Assessment/Plan All Active Problems (Last Reviewed 07/03/20 @ 16:[address] Rex Alexandre MD) Partial small bowel obstruction (Acute) Malignant tumor of ureter (Acute) Orthostatic dizziness (Acute) 1. pSBO: * complicated by stage III fallopian tube malignancy and adhesions * NGT in place, did not tolerate clamping yesterday * general surgery following 2. LOAN * resolved * likely prerenal * on IVF 3. Anemia * stable * monitor 4. severe protein malnutrition * currently NPO 5. stage IIIc high-grade fallopian tube malignancy * patient currently not agreeing to palliative care at this time * follow up with oncology 6. VTE prophylaxis: SQ heparin Inpatient E&M: 01945 Subs Hosp L2
[2020-07-05 12:00] LABS: Bedside Glucose 114 mg/dL (70-110)
[2020-07-05 12:17] LABS: Pathologist Review Reviewed
[2020-07-05 14:10] VITALS: BP 141/55; PULSE 104; RESP 18; TEMP 37.6; O2SAT 96
[2020-07-05 17:05] LABS: Bedside Glucose 115 mg/dL (70-110)
[2020-07-05] MEDS: proCHLORPERazine 10 MG/2 ML Vial IV (20:02)
[2020-07-05 20:07] VITALS: BP 135/51; PULSE 107; RESP 16; TEMP 36.6; O2SAT 96
[2020-07-05 21:36] LABS: Bedside Glucose 115 mg/dL (70-110)
[2020-07-05] MEDS: Ondansetron 4 MG/2 ML Vial 8 MG IV (23:48)
[2020-07-06] MEDS: 0.9% Normal Saline 1,000 ML 100 ML IV (02:11)
[2020-07-06 02:12] VITALS: BP 139/65; PULSE 115; RESP 16; TEMP 36.6; O2SAT 97
[2020-07-06 06:20] LABS: Absolute Lymphocyte Count 0.32 X10^3/uL (0.83-4.51); Absolute Neutrophil Count 2.5 X10^3/uL (2.0-7.7); Basophil# 0.01 X10^3/uL; Basophil% 0.3 % (0-1); Eosinophil# 0.02 X10^3/uL; Eosinophils% 0.6 % (0-5); Hematocrit 30.6 % (37-47); Hemoglobin 8.9 g/dL (12.0-15.0); Lymphocyte # 0.32 X10^3/ul (4.0); Lymphocyte % 9.4 % (19-41); Mean Corp Hgb Conc 29.1 g/dL (32-36); Mean Corpuscular Volume 113.3 fL (81-99); Mean Platelet Vol. 11.6 fl (6.2-12.0); Monocyte# 0.58 X10^3/uL; NRBC Flagged by Analyzer 0 % (0-5); Neutrophil # 2.46 X10^3/uL (2.7-7.7); Neutrophil % 72.1 % (47-70); POSITIVE DIFFERENTIAL YES; POSITIVE MORPHOLOGY YES; Platelet Count 169 K/mm3 (150-450); RBC Distribution Width CV 17.8 % (11.6-14.6); RBC Distribution Width SD 74.7 fl (35.1-43.9); White Blood Count 3.4 K/mm3 (4.4-11.0)
[2020-07-06 06:25] LABS: Differential Indicated SCAN CRITERIA MET
[2020-07-06 06:40] LABS: Bedside Glucose 112 mg/dL (70-110)
[2020-07-06 06:41] LABS: Differential Comment SCANNED
[2020-07-06 06:43] LABS: Anion Gap 10 (5-15); Anisocytosis 2+; BUN 15 mg/dL (7-18); Calcium,Total 8.3 mg/dL (8.5-10.1); Chloride 108 mmol/L (98-107); Creatinine, Serum 0.58 mg/dL (0.55-1.02); EST Glomerular Filtration Rate 109 mL/min (>60); Est Glom Filt Rate - Afr Amer 132 mL/min (>60); Estimated Creatinine Clearance 38.94 ml/min; Glucose 124 mg/dL (74-106); Potassium 3.7 mmol/L (3.5-5.1); Sodium Level 144 mmol/L (136-145)
[2020-07-06 06:44] LABS: Macrocytosis 2+; Polychromasia RARE
[2020-07-06] MEDS: proCHLORPERazine 10 MG/2 ML Vial IV (08:25)
[2020-07-06 08:29] VITALS: BP 110/61; PULSE 111; RESP 16; TEMP 36.4; O2SAT 100
[2020-07-06] MEDS: Pyridoxine HCl 100 MG Tablet PO (08:38)
--- NOTE | 2020-07-06 09:07 | CASEMGMT ---
Addendum entered by Dariana Shah 07/06/20 09:59: DIANNA received call from Bailey with [facility] requesting phone be brought to pt so she is able to discuss discharge options with pt. SW took pt phone and pt spoke with Bailey. Bailey updated this worker that Alison will be over to [facility] later today to have pt sign with Palliative. Original Note: Social Work Note DIANNA placed a call to [facility] and spoke with Alison. Alison states Della tried to call pt's yesterday but was unable to get in contact with him. Alison states at this time pt has not signed with Palliative or Hospice. Alison states she will follow up with pt today asked to be transferred to pt's room. DIANNA transferred phone call. Dariana Shah [employer] SUPERVISOR, FLOORING SALESPERSON
--- NOTE | 2020-07-06 09:42 | PN_ITS ---
Patient Problems: Active and Suspected Problems (Last Reviewed 07/03/20 @ 16:[address] Rex Alexandre MD) Partial small bowel obstruction (Acute) Reason for Visit: SBO Subjective: Abdomen slightly more distended after NG clamped yesterday. +Flatus. Vitals/I&O's: Vital Signs Temp Pulse Resp BP Pulse Ox 36.4 C L 111 H 16 110/61 100 07/06/20 08:29 07/06/20 08:29 07/06/20 08:29 07/06/20 08:29 07/06/20 08:29 Oxygen Delivery Method Room Air Weight: 71.6 kg Body Mass Index (BMI) 29.8 Intake and Output for Last 24 Hours 07/04/20 07/05/20 07/06/20 23:59 23:59 23:59 Intake Total 3818.33 / 3818.33 2500 / 2560 1043.33 / 1043.33 Output Total 1950 / 2400 1850 / 2200 725 / 725 Balance 1868.33 / 1418.33 650 / 360 318.33 / 318.33 General: Alert, No apparent distress HEENT: Atraumatic, Normocephalic Oral: Moist Mucosa, No Gingival or Mucosal Lesions/ Ulcerations Neck: No Nodes, Thyroid Normal Size and Texture Lungs: Clear to auscultation, Normal air movement, No rhonchi, No wheeze, No rales Cardiovascular: Regular rate, Regular Rhythm, Normal S1, Normal S2, No murmurs Abdomen: Distended, Tender, - - high-pitched bowel sounds Extremities: No edema, No Calf Tenderness Psych/Mental Status: Normal Affect, Appropriate Laboratory Results 07/04/20 08:26: Diff Path Review Reviewed 07/05/20 11:52: POC Glucose 114 H 07/05/20 16:51: POC Glucose 115 H 07/05/20 21:25: POC Glucose 115 H 07/06/20 05:51: WBC 3.4 L, RBC 2.70 L, Hgb 8.9 L, Hct 30.6 L, MCV 113.3 H, MCH 33.0 H, MCHC 29.1 L, RDW Std Deviation 74.7 H, RDW Coeff of Erika 17.8 H, Plt Count 169, MPV 11.6, Immature Gran % (Auto) 0.600, Neut % (Auto) 72.1 H, Lymph % (Auto) 9.4 L, [place] % (Auto) 17.0 H, Eos % (Auto) 0.6, Baso % (Auto) 0.3, Absolute Neuts (auto) 2.5, Absolute Lymphs (auto) 0.32 L, Nucleated RBC % 0, Differential Comment SCANNED, Diff Path Review May foll, Polychromasia RARE, Anisocytosis 2+, Macrocytosis 2+ 07/06/20 05:51: Sodium 144, Potassium 3.7, Chloride 108 H, Carbon Dioxide 26.0, Anion Gap 10, BUN 15, Creatinine 0.58, Estim Creat Clear Calc 38.94, Est GFR (MDRD) Af Amer 132, Est GFR (MDRD) Non-Af 109, BUN/Creatinine Ratio 26.0 H, Glucose 124 H, Calcium 8.3 L 07/06/20 06:32: POC Glucose 112 H Current Medications Calcium Carbonate (Tums) 500 - 1,000 mg PO Q6H PRN PRN PRN Reason: HEARTBURN OR INDIGESTION Last Admin: 07/02/20 01:03 Dose: 1,000 mg Documented by: Dextrose (D50w Syringe) 0 gm IV X1 PRN; Protocol PRN Reason: Hypoglycemia Glucagon () 1 mg IM .X1 PRN PRN Reason: Hypoglycemia Heparin Sodium (Porcine) (Heparin Na) 5,000 unit SC Q12 [facility] Last Admin: 07/05/20 21:23 Dose: 5,000 unit Documented by: Sodium Chloride () 1,000 mls @ 100 mls/hr IV .Q10H [facility] Last Admin: 07/06/20 02:11 Dose: 100 mls/hr Documented by: Insulin Human Lispro (Humalog Kwikpen (Bkc)) 0 unit SC ACHS [facility]; Protocol Last Admin: 07/06/20 06:33 Dose: Not Given Documented by: Melatonin (Melatonin) 3 mg PO QHS PRN PRN PRN Reason: INSOMNIA Morphine Sulfate () 4 mg IV Q3H PRN PRN PRN Reason: Pain Score 6-10/10 Last Admin: 07/05/20 23:51 Dose: 4 mg Documented by: Ondansetron HCl (Zofran) 8 mg IV Q6H PRN PRN PRN Reason: NAUSEA/VOMITING Last Admin: 07/05/20 23:48 Dose: 8 mg Documented by: Oxycodone HCl (Oxyir) 10 mg PO Q4H PRN PRN PRN Reason: Pain Score 4-5/10 Last Admin: 07/05/20 11:54 Dose: 10 mg Documented by: Phenol/Menthol (Chloraseptic (Bkc)) 5 spray MM Q2H PRN PRN PRN Reason: SORE THROAT Last Admin: 07/03/20 06:57 Dose: 5 spray Documented by: Prochlorperazine Edisylate (Compazine Iv) 10 mg IV Q6H PRN PRN PRN Reason: NAUSEA/VOMITING Last Admin: 07/06/20 08:25 Dose: 10 mg Documented by: Promethazine HCl (Phenergan) 12.5 mg IV Q4H PRN PRN PRN Reason: NAUSEA/VOMITING Last Admin: 07/03/20 02:55 Dose: 12.5 mg Documented by: Pyridoxine HCl (Vitamin B-6) 100 mg PO DAILY@0800 [facility] Last Admin: 07/06/20 08:38 Dose: 100 mg Documented by: Simethicone (Mylicon) 80 mg PO TIDPC PRN PRN Reason: Gas Sodium Chloride () 10 - 40 ml IV UD PRN PRN Reason: SALINE FLUSH Last Admin: 07/03/20 05:01 Dose: 10 ml Documented by: STROKE Vital Signs/Narrative: Vital Signs Temp Pulse Resp BP Pulse Ox 07/06/20 08:29 36.4 C L 111 H 16 110/61 100 Medical Necessity - Tobacco Use Smoking Status: Never smoker Assessment/Plan All Active Problems (Last Reviewed 07/03/20 @ 16:[address] Rex Alexandre MD) Partial small bowel obstruction (Acute) Malignant tumor of ureter (Acute) Orthostatic dizziness (Acute) 1. 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 DW Dr. Alexandre, who will resume suction. High concern that she would not tolerate ex-lap. May consider palliative PEG, however, patient not interested in palliative care at this time. 2. LOAN * resolved * likely prerenal * on IVF 3. Anemia * stable * monitor 4. severe protein malnutrition * currently NPO 5. stage IIIc high-grade fallopian tube malignancy * patient currently not agreeing to palliative care at this time * follow up with oncology 6. VTE prophylaxis: SQ heparin Inpatient E&M: 13067 Subs Hosp L2
--- NOTE | 2020-07-06 09:53 | PCM.PN.SRG ---
Patient Problems: Active and Suspected Problems (Last Reviewed 07/03/20 @ 16:[address] Rex Alexandre MD) Partial small bowel obstruction (Acute) Subjective: No nausea or vomiting with the NG tube clamped. However patient states her abdomen is extremely firm again. Objective: Tense abdomen high-pitched bowel sounds - Physical Exam Vitals/I&O's: Vital Signs Temp Pulse Resp BP Pulse Ox 97.5 F L 111 H 16 110/61 100 07/06/20 08:29 07/06/20 08:29 07/06/20 08:29 07/06/20 08:29 07/06/20 08:29 Oxygen Delivery Method Room Air Weight: 157 lb 13.616 oz Body Mass Index (BMI) 29.8 Intake and Output for Last 24 Hours 07/04/20 07/05/20 07/06/20 23:59 23:59 23:59 Intake Total 3818.33 / 3818.33 2500 / 2560 1043.33 / 1043.33 Output Total 1950 / 2400 1850 / 2200 725 / 725 Balance 1868.33 / 1418.33 650 / 360 318.33 / 318.33 Laboratory Results 07/04/20 08:26: Diff Path Review Reviewed 07/05/20 11:52: POC Glucose 114 H 07/05/20 16:51: POC Glucose 115 H 07/05/20 21:25: POC Glucose 115 H 07/06/20 05:51: WBC 3.4 L, RBC 2.70 L, Hgb 8.9 L, Hct 30.6 L, MCV 113.3 H, MCH 33.0 H, MCHC 29.1 L, RDW Std Deviation 74.7 H, RDW Coeff of Erika 17.8 H, Plt Count 169, MPV 11.6, Immature Gran % (Auto) 0.600, Neut % (Auto) 72.1 H, Lymph % (Auto) 9.4 L, [place] % (Auto) 17.0 H, Eos % (Auto) 0.6, Baso % (Auto) 0.3, Absolute Neuts (auto) 2.5, Absolute Lymphs (auto) 0.32 L, Nucleated RBC % 0, Differential Comment SCANNED, Diff Path Review May foll, Polychromasia RARE, Anisocytosis 2+, Macrocytosis 2+ 07/06/20 05:51: Sodium 144, Potassium 3.7, Chloride 108 H, Carbon Dioxide 26.0, Anion Gap 10, BUN 15, Creatinine 0.58, Estim Creat Clear Calc 38.94, Est GFR (MDRD) Af Amer 132, Est GFR (MDRD) Non-Af 109, BUN/Creatinine Ratio 26.0 H, Glucose 124 H, Calcium 8.3 L 07/06/20 06:32: POC Glucose 112 H Current Medications Calcium Carbonate (Tums) 500 - 1,000 mg PO Q6H PRN PRN PRN Reason: HEARTBURN OR INDIGESTION Last Admin: 07/02/20 01:03 Dose: 1,000 mg Documented by: Dextrose (D50w Syringe) 0 gm IV X1 PRN; Protocol PRN Reason: Hypoglycemia Glucagon () 1 mg IM .X1 PRN PRN Reason: Hypoglycemia Heparin Sodium (Porcine) (Heparin Na) 5,000 unit SC Q12 [facility] Last Admin: 07/05/20 21:23 Dose: 5,000 unit Documented by: Sodium Chloride () 1,000 mls @ 100 mls/hr IV .Q10H [facility] Last Admin: 07/06/20 02:11 Dose: 100 mls/hr Documented by: Insulin Human Lispro (Humalog Kwikpen (Bkc)) 0 unit SC ACHS [facility]; Protocol Last Admin: 07/06/20 06:33 Dose: Not Given Documented by: Melatonin (Melatonin) 3 mg PO QHS PRN PRN PRN Reason: INSOMNIA Morphine Sulfate () 4 mg IV Q3H PRN PRN PRN Reason: Pain Score 6-10/10 Last Admin: 07/05/20 23:51 Dose: 4 mg Documented by: Ondansetron HCl (Zofran) 8 mg IV Q6H PRN PRN PRN Reason: NAUSEA/VOMITING Last Admin: 07/05/20 23:48 Dose: 8 mg Documented by: Oxycodone HCl (Oxyir) 10 mg PO Q4H PRN PRN PRN Reason: Pain Score 4-5/10 Last Admin: 07/05/20 11:54 Dose: 10 mg Documented by: Phenol/Menthol (Chloraseptic (Bkc)) 5 spray MM Q2H PRN PRN PRN Reason: SORE THROAT Last Admin: 07/03/20 06:57 Dose: 5 spray Documented by: Prochlorperazine Edisylate (Compazine Iv) 10 mg IV Q6H PRN PRN PRN Reason: NAUSEA/VOMITING Last Admin: 07/06/20 08:25 Dose: 10 mg Documented by: Promethazine HCl (Phenergan) 12.5 mg IV Q4H PRN PRN PRN Reason: NAUSEA/VOMITING Last Admin: 07/03/20 02:55 Dose: 12.5 mg Documented by: Pyridoxine HCl (Vitamin B-6) 100 mg PO DAILY@0800 [facility] Last Admin: 07/06/20 08:38 Dose: 100 mg Documented by: Simethicone (Mylicon) 80 mg PO TIDPC PRN PRN Reason: Gas Sodium Chloride () 10 - 40 ml IV UD PRN PRN Reason: SALINE FLUSH Last Admin: 07/03/20 05:01 Dose: 10 ml Documented by: Medical Necessity - Tobacco Use Smoking Status: Never smoker Assessment/Plan All Active Problems (Last Reviewed 07/03/20 @ 16:[address] Rex Alexandre MD) Partial small bowel obstruction (Acute) Malignant tumor of ureter (Acute) Orthostatic dizziness (Acute) We will place NG tube back to suction. Inpatient E&M: 77443 Subs Hosp L2
[2020-07-06] MEDS: Heparin Injection (Vial) 5,000 UNIT/ML VIAL 5000 UNIT SC ×2 (10:25→21:15)
[2020-07-06 11:46] LABS: Bedside Glucose 111 mg/dL (70-110)
--- NOTE | 2020-07-06 12:29 | NT.THERAPY_ITS ---
Nutrition Therapy Report - History Nutrition Services has been consulted to:: Manage parenteral nutrition Current diet / nutrition support order:: NPO; NG suction. Order to initiate TPN - Anthropometric Measurements Height:: 5 ft 1 in Weight:: 71.6 kg Body Mass Index (BMI):: 29.8 - Relevant Labs Relevant Labs:: WBC 3.4 K/mm3 (4.4-11.0) L 07/06/20 05:51 RBC 2.70 M/mm3 (4.2-5.4) L 07/06/20 05:51 Hgb 8.9 g/dL (12.0-15.0) L 07/06/20 05:51 Hct 30.6 % (37-47) L 07/06/20 05:51 MCV 113.3 fL (81-99) H 07/06/20 05:51 MCH 33.0 pg (27.0-32.0) H 07/06/20 05:51 MCHC 29.1 g/dL (32-36) L 07/06/20 05:51 RDW Std Deviation 74.7 fl (35.1-43.9) H 07/06/20 05:51 RDW Coeff of Erika 17.8 % (11.6-14.6) H 07/06/20 05:51 MPV 13.4 fl (6.2-12.0) H 07/04/20 08:26 Immature Gran % (Auto) 2.700 % (0.0-0.9) H 07/02/20 05:25 Neut % (Auto) 72.1 % (47-70) H 07/06/20 05:51 Lymph % (Auto) 9.4 % (19-41) L 07/06/20 05:51 [place] % (Auto) 17.0 % (0-10) H 07/06/20 05:51 Absolute Lymphs (auto) 0.32 X10^3/uL (0.83-4.51) L 07/06/20 05:51 Sodium 135 mmol/L (136-145) L 07/01/20 19:35 Potassium 3.2 mmol/L (3.5-5.1) L 07/04/20 08:26 Chloride 108 mmol/L (98-107) H 07/06/20 05:51 BUN 20 mg/dL (7-18) H 07/04/20 08:26 Creatinine 1.17 mg/dL (0.55-1.02) H 07/02/20 05:25 Est GFR (MDRD) Af Amer 59 mL/min (>60) L 07/02/20 05:25 Est GFR (MDRD) Non-Af 48 mL/min (>60) L 07/02/20 05:25 BUN/Creatinine Ratio 26.0 RATIO (10-20) H 07/06/20 05:51 Glucose 124 mg/dL (74-106) H 07/06/20 05:51 Lactic Acid 2.3 mmol/L (0.4-1.9) H* 07/01/20 19:35 Calcium 8.3 mg/dL (8.5-10.1) L 07/06/20 05:51 Total Bilirubin 3.80 mg/dL (0.20-1.00) H 07/03/20 05:35 AST 54 U/L (15-37) H 07/03/20 05:35 ALT 98 U/L (13-56) H 07/03/20 05:35 Alkaline Phosphatase 560 U/L (45-117) H 07/03/20 05:35 Total Protein 6.2 g/dL (6.4-8.2) L 07/03/20 05:35 Albumin 2.3 g/dL (3.2-5.0) L 07/03/20 05:35 Globulin 4.3 g/dL (2.2-4.2) H 07/01/20 19:35 Albumin/Globulin Ratio 0.6 RATIO (0.9-2.4) L 07/03/20 05:35 - Assessment Food / Nutrition-Related History:: Pt with partial SBO 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 NG tube to suction & pt remains NPO--TPN ordered today. Re-estimated Nutrition Needs~7655-5620 kcal and ~80-100 gm protein/day. Pt with signs/symptoms of severe malnutrition related to chronic disease as evidenced by ~12% wt loss x past 1 month in addition to ongoing poor intake/inadequate caloric and protein intake x past 2-4 weeks. 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 Evidence of Malnutrition Exists:: Yes Severe PCM:: Chronic Illness - Nutrition Intervention Nutrition Prescription:: Estimated Nutrition Needs~6450-0084 kcal and ~80-100 gm protein/day - Food / Nutrient Delivery Interventions Summary of nutrition intervention:: Will initiate TPN as per doctor's order; maintain NPO at this time. Nutrition support ordered as / adjusted to:: TPN--will order 2 L 4.25% AA/10% dextrose @ 84 ml/hr with electrolytes, MVI, trace metals and folic acid to provide 84 gm protein and 1020 kcal/day. No lipids today. Will reassess TPN daily and increase as needed. Daily weights. Check mag, phos, triglycerides once per week. Nutrition education provided?: No - MNT Monitoring Further MNT monitoring and evaluation required?: Yes MNT Follow-up in:: 1-2 days
[2020-07-06 12:35] VITALS: BMI 29.8
[2020-07-06 12:36] LABS: Triglycerides 268 mg/dL
[2020-07-06 12:54] VITALS: BP 145/59; PULSE 114; RESP 16; TEMP 37.7; O2SAT 97
[2020-07-06] MEDS: Morphine 4 MG/ML Syringe IV ×3 (13:01→21:17)
[2020-07-06 16:24] VITALS: BP 123/55; PULSE 105; RESP 16; TEMP 36.7; O2SAT 95
[2020-07-06 16:40] LABS: Bedside Glucose 116 mg/dL (70-110)
[2020-07-06] MEDS: 0.9% Saline Lock 10 ML Syringe IV ×2 (18:03→21:15)
[2020-07-06 21:05] VITALS: BP 165/66; PULSE 107; RESP 18; TEMP 37.1; O2SAT 96
[2020-07-06] MEDS: Insulin Lispro 100 UNIT/ML INSULN.PEN SC (21:16)
[2020-07-06 23:55] LABS: Bedside Glucose 154 mg/dL (70-110)
[2020-07-07] VITALS (7 sets, daily range): BP systolic 142–187; BP diastolic 66–82; PULSE 114–121; RESP 16–18; TEMP 36.4–36.6; O2SAT 93–97
[2020-07-07] MEDS: Insulin Lispro 100 UNIT/ML INSULN.PEN SC (06:03)
[2020-07-07 06:11] LABS: Bedside Glucose 241 mg/dL (70-110)
[2020-07-07] MEDS: 0.9% Saline Lock 10 ML Syringe IV (06:20)
[2020-07-07] MEDS: Morphine 4 MG/ML Syringe IV ×3 (06:20→12:08)
--- NOTE | 2020-07-07 08:41 | DCINST_ITS ---
- Discharge Diagnoses Current Active Problems: Current Active and Chronic Problems (Last Reviewed 07/03/20 @ 16:[address] Rex Alexandre MD) Partial small bowel obstruction (Acute) You will use the following diet at home:: Other - NPO for now. TPN Your food should be the consistency of: Regular Allergies/Adverse Reactions: Allergies lisinopril Allergy (Verified 07/01/20 18:05) Other Medications to take at Discharge Simvastatin 20 mg PO QHS 06/19/18 olaparib 100 mg tablet 200 mg PO BID tab 02/23/19 glipizide 5 mg tablet 5 mg PO DAILY 12/14/19 magnesium oxide 400 mg (241.3 mg magnesium) tablet 400 mg PO BID #180 tab 04/04/20 Furosemide 40 mg PO BID 07/01/20 Ondansetron [Zofran Odt] 4 mg PO Q8H PRN PRN 07/01/20 Potassium Chloride [K-Dur] 20 meq PO DAILY 07/01/20 Sacubitril/Valsartan 24/26 mg [Entresto 24 mg-26 mg Tablet] 1 ea PO BID 07/01/20 Primary Care Physician: Lila Guido PABelindaC [Primary Care Provider] - Test Results: Test results from this visit will be discussed in further detail at your follow- up appointment, if applicable. Proposed Discharge Date: 07/07/20
--- NOTE | 2020-07-07 08:42 | DS.PCM_ITS ---
Discharge Date and Diagnosis - Problem List Patient Problems: Active and Suspected Problems (Last Reviewed 07/03/20 @ 16:[address] Rex Alexandre MD) Partial small bowel obstruction (Acute) Date of Admission: 07/01/20 Date of Discharge: 07/07/20 - Primary Discharge Diagnosis Acute Problems: Active Problems (Last Reviewed 07/03/20 @ 16:[address] Rex Alexandre MD) Partial small bowel obstruction (Acute) LOAN - Secondary Discharge Diagnosis Chronic Problems: Chronic Problems (Last Reviewed 07/03/20 @ 16:[address] 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 Extensive loculated abdominal ascites, possibly malignant. 2. No intestinal obstruction, presumed peritoneal adhesions. Questionable lower pelvic soft tissue versus collapsed adhesed loops of bowel. 3. Severe biliary dilation, probably obstruction. Possibility of pancreatic lesion is present versus intraductal abnormality. Electronically Signed: Jessica Iglesias, at 20:52 EDT Tel , Service support , KUB X-Ray 07/03/20 06:23 IMPRESSION: The tip of the nasogastric tube is in the antral portion of the stomach. Electronically Signed: Alfonso Guaman, at 10:18 EDT , Service support , tino, general surgery Masci, oncology Operations: None Procedures: None Summary of Care Provided: The patient is a 70 year old F with pain CAT scan showed extensive loculated abdominal ascites. No intestinal obstruction noted on the CAT scan patient later began having nausea and vomiting and NG tube was placed and patient was symptomatically better. Patient was seen in consultation by Dr. Alexandre, general surgery, and we performed conservative measures with NG tube and have clamped it a couple times only for the patient's symptoms to recur. Symptoms got better once the suction was resumed. After 5 days, patient was started on TPN as she was still continued to be n.p.o. did not feel that she was a good surgical candidate and certainly not for this institution. He did reach out to her surgical oncologist, Dr. Johnston, who also stated the patient is not a surgical candidate but did recommend a paracentesis to see if that may alleviate some of her bowel obstruction. The surgeon also stated that he would not do any surgery other than perhaps a palliative PEG tube. This information was just brought up today. Patient herself is not interested in palliative measures at this time and is interested in second opinions. I offered patient transfer to a tertiary facility. Patient stated that she would prefer [facility] over [facility] or other hospitals. I spoke with Dr. Marcos and discussed the details of the patient's case, surgical recommendations and patient has been accepted by him. With Dr. Michael who patient has exhausted chemotherapy and really does not have any viable options least from his standpoint for her. Palliative measures have been recommended, but patient is not interested at this time. I feel patient is hospice appropriate. [] Patient Problems: Active and Suspected Problems (Last Reviewed 07/03/20 @ 16:[address] Rex Alexandre MD) Partial small bowel obstruction (Acute) - Physical Exam Vitals/I&O's: Vital Signs Temp Pulse Resp BP Pulse Ox 36.6 C 114 H 16 142/82 H 93 07/07/20 08:21 07/07/20 08:21 07/07/20 08:21 07/07/20 08:21 07/07/20 08:21 Oxygen Delivery Method Room Air Weight: 77.1 kg Body Mass Index (BMI) 29.8 Intake and Output for Last 24 Hours 07/05/20 07/06/20 07/07/20 23:59 23:59 23:59 Intake Total 2500 / 2560 2548.33 / 2548.33 60 / 60 Output Total 1850 / 2200 2175 / 2175 650 / 650 Balance 650 / 360 373.33 / 373.33 -590 / -590 General: Alert, No apparent distress HEENT: Atraumatic, Normocephalic Oral: Moist Mucosa, No Gingival or Mucosal Lesions/ Ulcerations Neck: No Nodes, Thyroid Normal Size and Texture Lungs: Clear to auscultation, Normal air movement, No rhonchi, No wheeze Cardiovascular: Regular rate, Regular Rhythm, Normal S1, Normal S2 Abdomen: Hypoactive Bowel Sounds - high-pitched, Distended - in epigastrum. central abdominal fullness., Tender Laboratory Results 07/06/20 05:51: Triglycerides 268 H 07/06/20 11:23: POC Glucose 111 H 07/06/20 16:31: POC Glucose 116 H 07/06/20 21:13: POC Glucose 154 H 07/07/20 06:01: POC Glucose 241 H Current Medications Calcium Carbonate (Tums) 500 - 1,000 mg PO Q6H PRN PRN PRN Reason: HEARTBURN OR INDIGESTION Last Admin: 07/02/20 01:03 Dose: 1,000 mg Documented by: Dextrose (D50w Syringe) 0 gm IV X1 PRN; Protocol PRN Reason: Hypoglycemia Glucagon () 1 mg IM .X1 PRN PRN Reason: Hypoglycemia Heparin Sodium (Porcine) (Heparin Na) 5,000 unit SC Q12 [facility] Last Admin: 07/06/20 21:15 Dose: 5,000 unit Documented by: Multivitamins 10 ml/ Chromium/Copper/Manganese/Seleni/Zn 1 ml/ Folic Acid 1 mg/ Amino Acids/Electrolytes/Dextrose 2,011 mls @ 84 mls/hr IV .[id number] [facility] Stop: 07/07/20 15:48 Last Admin: 07/06/20 17:55 Dose: 84 mls/hr Documented by: Insulin Human Lispro (Humalog Kwikpen (Bkc)) 0 unit SC Q6 [facility]; Protocol Labetalol HCl (Trandate) 10 mg IV Q4H PRN PRN PRN Reason: SBP> 160 or DBP > 120 Melatonin (Melatonin) 3 mg PO QHS PRN PRN PRN Reason: INSOMNIA Morphine Sulfate () 4 mg IV Q3H PRN PRN PRN Reason: Pain Score 6-10/10 Last Admin: 07/07/20 06:20 Dose: 4 mg Documented by: Ondansetron HCl (Zofran) 8 mg IV Q6H PRN PRN PRN Reason: NAUSEA/VOMITING Last Admin: 07/05/20 23:48 Dose: 8 mg Documented by: Oxycodone HCl (Oxyir) 10 mg PO Q4H PRN PRN PRN Reason: Pain Score 4-5/10 Last Admin: 07/05/20 11:54 Dose: 10 mg Documented by: Phenol/Menthol (Chloraseptic (Bkc)) 5 spray MM Q2H PRN PRN PRN Reason: SORE THROAT Last Admin: 07/03/20 06:57 Dose: 5 spray Documented by: Prochlorperazine Edisylate (Compazine Iv) 10 mg IV Q6H PRN PRN PRN Reason: NAUSEA/VOMITING Last Admin: 07/06/20 08:25 Dose: 10 mg Documented by: Promethazine HCl (Phenergan) 12.5 mg IV Q4H PRN PRN PRN Reason: NAUSEA/VOMITING Last Admin: 07/03/20 02:55 Dose: 12.5 mg Documented by: Pyridoxine HCl (Vitamin B-6) 100 mg PO DAILY@0800 [facility] Last Admin: 07/06/20 08:38 Dose: 100 mg Documented by: Simethicone (Mylicon) 80 mg PO TIDPC PRN PRN Reason: Gas Sodium Chloride () 10 - 40 ml IV UD PRN PRN Reason: SALINE FLUSH Last Admin: 07/07/20 06:20 Dose: 20 ml Documented by: Discharge Diet: No Restrictions Home Medications: Medications to take at Discharge Simvastatin 20 mg PO QHS 06/19/18 olaparib 100 mg tablet 200 mg PO BID tab 02/23/19 glipizide 5 mg tablet 5 mg PO DAILY 12/14/19 magnesium oxide 400 mg (241.3 mg magnesium) tablet 400 mg PO BID #180 tab 04/04/20 Furosemide 40 mg PO BID 07/01/20 Ondansetron [Zofran Odt] 4 mg PO Q8H PRN PRN 07/01/20 Potassium Chloride [K-Dur] 20 meq PO DAILY 07/01/20 Sacubitril/Valsartan 24/26 mg [Entresto 24 mg-26 mg Tablet] 1 ea PO BID 07/01/20 Primary Care Physician: Lila Guido PA-C [Primary Care Provider] - Disposition: Acute care Hospital Minutes spent on discharge:: 40 Patient Condition:: Poor Medical Necessity - Tobacco Use Smoking Status: Never smoker Meaningful Use Info Meaningful Use Diagnoses (Choose all that apply): None applicable Inpatient E&M: 79415 Disch Hosp
--- NOTE | 2020-07-07 08:55 | PN_ITS ---
Patient Problems: Active and Suspected Problems (Last Reviewed 07/03/20 @ 16:[address] Rex Alexandre MD) Partial small bowel obstruction (Acute) Subjective: Attempts at clamping the NG tube lead to a crescendo and lower abdominal pain. She's been able to take an ice chips. No nausea. She was started on TPN. - Physical Exam Vitals/I&O's: Vital Signs Temp Pulse Resp BP Pulse Ox 98 F 114 H 16 142/82 H 93 07/07/20 08:21 07/07/20 08:21 07/07/20 08:21 07/07/20 08:21 07/07/20 08:21 Oxygen Delivery Method Room Air Weight: 77.1 kg Body Mass Index (BMI) 29.8 Intake and Output for Last 24 Hours 07/05/20 07/06/20 07/07/20 23:59 23:59 23:59 Intake Total 2500 / 2560 2548.33 / 2548.33 60 / 60 Output Total 1850 / 2200 2175 / 2175 650 / 650 Balance 650 / 360 373.33 / 373.33 -590 / -590 Laboratory Results 07/06/20 05:51: Triglycerides 268 H 07/06/20 11:23: POC Glucose 111 H 07/06/20 16:31: POC Glucose 116 H 07/06/20 21:13: POC Glucose 154 H 07/07/20 06:01: POC Glucose 241 H Current Medications Calcium Carbonate (Tums) 500 - 1,000 mg PO Q6H PRN PRN PRN Reason: HEARTBURN OR INDIGESTION Last Admin: 07/02/20 01:03 Dose: 1,000 mg Documented by: Dextrose (D50w Syringe) 0 gm IV X1 PRN; Protocol PRN Reason: Hypoglycemia Glucagon () 1 mg IM .X1 PRN PRN Reason: Hypoglycemia Heparin Sodium (Porcine) (Heparin Na) 5,000 unit SC Q12 [facility] Last Admin: 07/06/20 21:15 Dose: 5,000 unit Documented by: Multivitamins 10 ml/ Chromium/Copper/Manganese/Seleni/Zn 1 ml/ Folic Acid 1 mg/ Amino Acids/Electrolytes/Dextrose 2,011 mls @ 84 mls/hr IV .[id number] [facility] Stop: 07/07/20 15:48 Last Admin: 07/06/20 17:55 Dose: 84 mls/hr Documented by: Insulin Human Lispro (Humalog Kwikpen (Bkc)) 0 unit SC Q6 [place]; Protocol Labetalol HCl (Trandate) 10 mg IV Q4H PRN PRN PRN Reason: SBP> 160 or DBP > 120 Melatonin (Melatonin) 3 mg PO QHS PRN PRN PRN Reason: INSOMNIA Morphine Sulfate () 4 mg IV Q3H PRN PRN PRN Reason: Pain Score 6-10/10 Last Admin: 07/07/20 06:20 Dose: 4 mg Documented by: Ondansetron HCl (Zofran) 8 mg IV Q6H PRN PRN PRN Reason: NAUSEA/VOMITING Last Admin: 07/05/20 23:48 Dose: 8 mg Documented by: Oxycodone HCl (Oxyir) 10 mg PO Q4H PRN PRN PRN Reason: Pain Score 4-5/10 Last Admin: 07/05/20 11:54 Dose: 10 mg Documented by: Phenol/Menthol (Chloraseptic (Bkc)) 5 spray MM Q2H PRN PRN PRN Reason: SORE THROAT Last Admin: 07/03/20 06:57 Dose: 5 spray Documented by: Prochlorperazine Edisylate (Compazine Iv) 10 mg IV Q6H PRN PRN PRN Reason: NAUSEA/VOMITING Last Admin: 07/06/20 08:25 Dose: 10 mg Documented by: Promethazine HCl (Phenergan) 12.5 mg IV Q4H PRN PRN PRN Reason: NAUSEA/VOMITING Last Admin: 07/03/20 02:55 Dose: 12.5 mg Documented by: Pyridoxine HCl (Vitamin B-6) 100 mg PO DAILY@0800 [place] Last Admin: 07/06/20 08:38 Dose: 100 mg Documented by: Simethicone (Mylicon) 80 mg PO TIDPC PRN PRN Reason: Gas Sodium Chloride () 10 - 40 ml IV UD PRN PRN Reason: SALINE FLUSH Last Admin: 07/07/20 06:20 Dose: 20 ml Documented by: Medical Necessity - Tobacco Use Smoking Status: Never smoker Assessment/Plan All Active Problems (Last Reviewed 07/03/20 @ 16:[address] Rex Alexandre MD) Partial small bowel obstruction (Acute) Malignant tumor of ureter (Acute) Orthostatic dizziness (Acute) ASSESSMENT:?? 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 -Recurrent disease?with?PFI ~8 mo; received?carbo/gemictiabine/avastin?x6 cycles as second line until 05/2018. Olaparib started 06/2018. -07/2018 RT to para-aortic nodes -11/2018 second recurrence in right ureter s/p ablation with excellent results. Continued Olaparib. -Third recurrence 06/2019 again in the right ureter s/p SBRT x3 fx. Continued Olaparib. -04/2020 Recurrent right ureter mass with no other obvious areas of recurrence; plan for ureter resection with Dr. Garcia (urology). -06/2020 Preop PET scan showing many areas of recurrent disease, patient symptomatic and CA-125 >1,000 -She's had significant progression of disease in the last several months as evidenced by PET scan. -Now admitted for bowel obstruction. -KPS is 30%. -Symptoms responding to nasogastric drainage decompression. when clamped, she has rather quick escalation of lower abdominal pain. -I again addressed overall goals of care with her. She desires a gynecologic oncology opinion on surgery. Plan: -Discussed with Dr. Duran. Planning transfer to [facility].
[2020-07-07] MEDS: Pyridoxine HCl 100 MG Tablet PO (09:21)
[2020-07-07] MEDS: Heparin Injection (Vial) 5,000 UNIT/ML VIAL 5000 UNIT SC (09:21)
[2020-07-07 11:40] LABS: Bedside Glucose 222 mg/dL (70-110)
[2020-07-07 12:25] LABS: Pathologist Review Reviewed
--- NOTE | 2020-07-07 12:40 | NURSING ---
called report to [facility]. pt left via ambulance. at bedside. pt left with picc line and tpn running
== END 2020-07-07 12:30 | disposition short-term general hospital (02) | DRG 947 ==
LOC: ED 21:53 → MS3 07-02 00:03
PROVIDERS: Internal Medicine; Nurse Practitioner Family; Admitting Provider Family Medicine; Emergency Provider Emergency Medicine; PCP Family Medicine
DX: G89.3 Neoplasm related pain (acute) (chronic) (principal); E43 Unspecified severe protein-calorie malnutrition; C56.9 Malignant neoplasm of unspecified ovary; C78.6 Secondary malignant neoplasm of retroperitoneum and peritoneum; K56.600 Partial intestinal obstruction, unspecified as to cause; N17.9 Acute kidney failure, unspecified; E87.2 Acidosis; I50.22 Chronic systolic (congestive) heart failure; I42.7 Cardiomyopathy due to drug and external agent; T45.1X5A Adverse effect of antineoplastic and immunosuppressive drugs, initial encounter; R18.0 Malignant ascites; I11.0 Hypertensive heart disease with heart failure; E86.0 Dehydration; E87.6 Hypokalemia; E11.9 Type 2 diabetes mellitus without complications; E78.5 Hyperlipidemia, unspecified; Z79.84 Long term (current) use of oral hypoglycemic drugs; Z79.899 Other long term (current) drug therapy; Z92.21 Personal history of antineoplastic chemotherapy; Z92.3 Personal history of irradiation; Z90.49 Acquired absence of other specified parts of digestive tract
CPT/HCPCS: 36415; 36569; 74018; 74177; 80048; 80053; 81001; 82607; 82746; 82962; 83605; 83690; 83735; 84478; 85025; 85027; 94640; 97110; 97162; 97165; 97802; 99251; 99285; J7030; Q9967; A4216; G0463; J2405